=== PATIENT | female | born 1940 | race Caucasian/White ===

== ENCOUNTER → 2016-10-16 | Outpatient (REF) | payer MEDICARE ==
[2016-10-16 11:47] LABS: ALBUMIN 3.4 GM/DL (3.2-5.2); ALBUMIN/GLOBULIN RATIO 1.21 (1.00-1.93); BILIRUBIN,TOTAL 1.4 MG/DL (0.2-1.0); CALCIUM LEVEL 9.9 MG/DL (8.8-10.2); CREATININE FOR GFR 1.09 MG/DL (0.55-1.02); POTASSIUM SERUM 5.1 MEQ/L (3.5-5.1); TOTAL PROTEIN 6.2 GM/DL (6.4-8.2)
== END ==
LOC: M SFHCPLAZ 08:14
PROVIDERS: ATTEND Internal Medicine
DX: E10.29 Type 1 diabetes mellitus with other diabetic kidney complication (principal); E78.00 Pure hypercholesterolemia, unspecified

== ENCOUNTER 2016-12-05 21:58 | Emergency (ER) | payer MEDICARE ==
[2016-12-05] MEDS ORDERED: PANTOPRAZOLE 40MG TAB (PROTONIX) PO ONE (22:30)
[2016-12-05] MEDS ORDERED: ASPIRIN 325 MG TAB PO ONE (22:30)
[2016-12-05] MEDS ORDERED: LOSA100T36 PO (22:50)
[2016-12-05] MEDS ORDERED: AMLO5TAB2 PO (22:50)
[2016-12-05] MEDS ORDERED: NITR0.4S14 SL (22:50)
[2016-12-05] MEDS ORDERED: COSO1SOL3 OD (22:50)
[2016-12-05] MEDS ORDERED: LEVO150T7 PO (22:50)
[2016-12-05] MEDS ORDERED: ATOR1TAB21 PO (22:50)
[2016-12-05] MEDS ORDERED: ONE-TAB3 PO (22:50)
[2016-12-05] MEDS ORDERED: LUBR0.5D OP (22:50)
[2016-12-05] MEDS ORDERED: ASPI81CH PO (22:50)
[2016-12-05] MEDS ORDERED: FLON1SPR (22:50)
[2016-12-05] MEDS ORDERED: TIMO0.5S29 OS (22:50)
[2016-12-05] MEDS ORDERED: FISH1000 PO (22:50)
[2016-12-05] MEDS ORDERED: [UNRECOGNIZED DRUG - OTHER] SQ (22:50)
[2016-12-05] MEDS ORDERED: COLE625TAB PO (22:50)
[2016-12-05] MEDS ORDERED: VITA500055 PO (22:50)
[2016-12-05] MEDS ORDERED: ACYC200C8 PO (22:50)
[2016-12-05 23:13] LABS: BASO % 0.6 % (0.0-1.0); EOS # 0.3 K/mm3 (0.0-0.50); EOS % 3.3 % (0.0-3.0); LARGE UNSTAINED CELL # 0.2 K/mm3 (0.0-0.4); LARGE UNSTAINED CELL % 2.2 % (0.0-4.0); LYMPH # 3.3 K/mm3 (1.5-4.5); LYMPH % 38.4 % (24.0-44.0); MEAN CORPUSCULAR HEMOGLOBIN 32.6 pg (27.0-33.0); MEAN CORPUSCULAR HGB CONC 34.9 g/dl (32.0-36.5); MEAN CORPUSCULAR VOLUME 93.3 fl (80.0-96.0); MONO # 0.6 K/mm3 (0.0-0.8); MONO % 7.1 % (0.0-5.0); NEUTROPHILS % 48.4 % (36.0-66.0); PLATELET COUNT, AUTOMATED 185 k/mm3 (150-450); RED CELL DISTRIBUTION WIDTH 11.7 % (11.5-14.5); WHITE BLOOD COUNT 8.2 K/mm3 (4.0-10.0)
[2016-12-05 23:20] LABS: INR 0.86
[2016-12-05 23:43] LABS: ANION GAP 7 MEQ/L (8-16); BLOOD UREA NITROGEN 21 MG/DL (7-18); CALCIUM LEVEL 9.6 MG/DL (8.8-10.2); CARBON DIOXIDE LEVEL 27 MEQ/L (21-32); CHLORIDE LEVEL 107 MEQ/L (98-107); CREATININE FOR GFR 1.18 MG/DL (0.55-1.02); GLOMERULAR FILTRATION RATE 47.4 (>39); GLUCOSE, FASTING 97 MG/DL (83-110); SODIUM LEVEL 141 MEQ/L (136-145)
[2016-12-06] MEDS ORDERED: PROT1TAB2 PO (03:43)
[2016-12-06 03:55] VITALS: BP 162/64
--- NOTE | 2016-12-06 08:30 | REP ---
PA and lateral chest: Comparison is 06/08/2009. The lung marquez are clear. The cardiac size is normal The ric, mediastinum, and bony thorax are unremarkable. Impression: Negative PA and lateral chest. There is no interval change. Signed by Dav Teran MD 12/06/2016 08:22 A
--- NOTE | 2016-12-06 21:33 | ECGEPIP ---
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
--- NOTE | 2016-12-06 21:35 | ECGEPIP ---
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
== END 2016-12-06 03:57 | disposition home or self-care (01) ==
LOC: EDBD 21:58 → M ED 21:58
DX: K21.9 Gastro-esophageal reflux disease without esophagitis (principal); I25.10 Atherosclerotic heart disease of native coronary artery without angina pectoris; E11.9 Type 2 diabetes mellitus without complications; I10 Essential (primary) hypertension; E78.5 Hyperlipidemia, unspecified; Z87.891 Personal history of nicotine dependence; Z88.0 Allergy status to penicillin; Z79.82 Long term (current) use of aspirin; Z79.899 Other long term (current) drug therapy; Z96.41 Presence of insulin pump (external) (internal)

== ENCOUNTER → 2017-04-17 | Outpatient (REF) | payer MEDICARE ==
[~2017-04-17] MED LIST: ACYC200C8 PO; AMLO5TAB2 PO; ASPI81CH PO; ATOR1TAB21 PO; COLE625TAB PO; COSO1SOL3 OD; FISH1000 PO; FLON1SPR; LEVO150T7 PO; LOSA100T36 PO; LUBR0.5D OP; NITR0.4S14 SL; ONE-TAB3 PO; PROT1TAB2 PO; TIMO0.5S29 OS; VITA500055 PO; [UNRECOGNIZED DRUG - OTHER] SQ
[2017-04-17 10:53] LABS: MEAN CORPUSCULAR HEMOGLOBIN 31.4 pg (27.0-33.0); MEAN CORPUSCULAR HGB CONC 33.1 g/dl (32.0-36.5); MEAN CORPUSCULAR VOLUME 94.8 fl (80.0-96.0); PLATELET COUNT, AUTOMATED 206 10^3/uL (150-450); RED CELL DISTRIBUTION WIDTH 11.5 % (11.5-14.5); WHITE BLOOD COUNT 10.7 10^3/uL (4.0-10.0)
[2017-04-17 11:13] LABS: ALBUMIN 3.4 GM/DL (3.2-5.2); ALBUMIN/GLOBULIN RATIO 1.17 (1.00-1.93); BILIRUBIN,TOTAL 1.2 MG/DL (0.2-1.0); CALCIUM LEVEL 9.1 MG/DL (8.8-10.2); CREATININE FOR GFR 1.13 MG/DL (0.55-1.02); GLOMERULAR FILTRATION RATE 49.8 (>39); TOTAL PROTEIN 6.3 GM/DL (6.4-8.2)
[2017-04-17 13:28] LABS: POTASSIUM SERUM 5.6 MEQ/L (3.5-5.1)
== END ==
LOC: M SFHCPLAZ 08:28
PROVIDERS: ATTEND Internal Medicine
DX: E10.29 Type 1 diabetes mellitus with other diabetic kidney complication (principal); Z86.010 Personal history of colon polyps; E78.00 Pure hypercholesterolemia, unspecified; E03.9 Hypothyroidism, unspecified

== ENCOUNTER → 2017-05-20 | Outpatient (REF) | payer MEDICARE | LOC: M LAB REF 13:12 | DX: N39.0 Urinary tract infection, site not specified (principal) | CPT/HCPCS: 87186 ==

== ENCOUNTER → 2017-08-19 | Outpatient (REF) | payer MEDICARE ==
[2017-08-19 18:43] LABS: FERRITIN 87 NG/ML (8-252); IRON (FE) 94 UG/DL (50-170); PERCENT SATURATION 28.9 % (13.2-45.0); TOTAL IRON BINDING CAPACITY 325 UG/DL (250-450)
== END ==
LOC: M LAB REF 17:12
DX: D64.9 Anemia, unspecified (principal)
CPT/HCPCS: 83550

== ENCOUNTER → 2018-05-01 | Outpatient (REF) | payer MEDICARE ==
[~2018-05-01] MED LIST changes: -AMLO5TAB2 PO; +AMLO5TAB6 PO; -LOSA100T36 PO; +LOSA100T50 PO
[2018-05-01 11:19] LABS: HEMATOCRIT 37.5 % (36.0-47.0); HEMOGLOBIN 12.3 g/dl (12.0-15.5); MEAN CORPUSCULAR HEMOGLOBIN 30.4 pg (27.0-33.0); MEAN CORPUSCULAR HGB CONC 32.8 g/dl (32.0-36.5); MEAN CORPUSCULAR VOLUME 92.6 fl (80.0-96.0); PLATELET COUNT, AUTOMATED 208 10^3/uL (150-450); RED BLOOD COUNT 4.05 10^6/uL (4.00-5.40); WHITE BLOOD COUNT 7.1 10^3/uL (4.0-10.0)
[2018-05-01 11:36] LABS: ALBUMIN 3.5 GM/DL (3.2-5.2); CALCIUM LEVEL 8.9 MG/DL (8.8-10.2); CHOLESTEROL RISK RATIO 1.732 (<5); CREATININE FOR GFR 0.99 MG/DL (0.55-1.30); GLOMERULAR FILTRATION RATE 57.9 (>39); MAGNESIUM LEVEL 1.9 MG/DL (1.8-2.4); POTASSIUM SERUM 4.8 MEQ/L (3.5-5.1); THYROID STIMULATING HORMONE 0.135 uIU/ML (0.358-3.740); TOTAL PROTEIN 6.3 GM/DL (6.4-8.2)
[2018-05-01 11:38] LABS: TOTAL 25(OH) VITAMIN D 33.3 NG/ML (30.0-100.0)
[2018-05-01 11:53] LABS: CREATININE, URINE 28.6 MG/DL; MALB URINE SIEMENS 58.3 MG/L; MAU/CREAT RATIO 203.8 MCG/MG (0.0-30.0)
[2018-05-01 12:08] LABS: HEMOGLOBIN A1c 9.3 %
== END ==
LOC: M SFHCPLAZ 08:16
PROVIDERS: ATTEND Internal Medicine
DX: Z86.010 Personal history of colon polyps (principal); I10 Essential (primary) hypertension; E10.29 Type 1 diabetes mellitus with other diabetic kidney complication; E78.00 Pure hypercholesterolemia, unspecified; E03.9 Hypothyroidism, unspecified; E55.9 Vitamin D deficiency, unspecified

== ENCOUNTER → 2018-05-13 | Outpatient (CLI) | payer MEDICARE ==
--- NOTE | 2018-05-13 09:54 | REPMRS ---
Patient History The patient states she has not had a clinical breast exam in over a year. Patient is postmenopausal. Family history of prostate cancer and colorectal cancer at age 50 or over in father. No Hormone Replacement Therapy Digital Woman Screen Mammo: May 13, 2018 - Exam #: [id number] Bilateral CC and MLO view(s) were taken. Technologist: Tyesha Chacon, Technologist Prior study comparison: June 15, 2015, digital woman screen mammo performed at [facility]. November 13, 2013, digital woman screen mammo performed at [facility]. November 12, 2012, digital woman screen mammo performed at [facility]. FINDINGS: There are scattered fibroglandular densities. There are two groupings of microcalcifications in the left breast centrally, one medial and the other lateral. These merit further evaluation. There has been no change in the appearance of the mammogram from the prior studies. There is a mild amount of scattered fibroglandular density which is fairly symmetric. There is no interval development of dominant mass, architectural distortion, or clustered microcalcification suggestive of malignancy. 3-D tomosynthesis shows no additional findings. Assessment: BI-RADS/ACR category 0 mammogram, incomplete. BIRADS/ACR category zero mammogram, incomplete. Additional imaging and/or prior images needed. Recommendation Follow-up diagnostic mammogram of the left breast. This patient's Lifetime Breast Cancer RIsk is estimated at 3.5 %. This mammogram was interpreted with the aid of an FDA-approved computer-aided dectection system. Electronically Signed By: Ananda Licea MD 05/13/18 [id number]
== END ==
LOC: M WHC 08:44
PROVIDERS: ATTEND Internal Medicine
DX: Z12.31 Encounter for screening mammogram for malignant neoplasm of breast (principal); R92.8 Other abnormal and inconclusive findings on diagnostic imaging of breast

== ENCOUNTER → 2018-05-21 | Outpatient (CLI) | payer MEDICARE ==
--- NOTE | 2018-05-21 10:03 | REP ---
Digital diagnostic bilateral mammography with CAD: History: Screening mammography May 13, 2018 was BI-RADS category 0 because of the presence of two apparent groupings of microcalcifications. Comparison mammography is also reviewed from June 15, 2015 and November 13, 2013. Findings: Magnified focal spot compression CC, true MLO, and MLO views of the left breast were obtained. These confirm the presence of two progressive microcalcific grouping in the left breast, one laterally and one medially. No spiculation or soft tissue component is seen. They are polymorphic and must be considered suspicious. Impression: BI-RADS/ACR category 4 mammogram. Suspicious abnormality - biopsy should be considered. Usually requires biopsy. BI-RADS category IV suspicious left breast imaging. Two groupings of microcalcifications, one medially and the other laterally in the left breast. Stereotactic needle biopsy is recommended for both groupings. This mammogram was interpreted with the aid of an FDA-approved computer-aided detection system. The patient letter being requested is m4 . Electronically Signed by Jose Licea MD 05/21/2018 07:35 P
== END ==
LOC: M RAD 09:22
PROVIDERS: ATTEND Internal Medicine
DX: Z12.31 Encounter for screening mammogram for malignant neoplasm of breast (principal); R92.0 Mammographic microcalcification found on diagnostic imaging of breast

== ENCOUNTER 2018-08-20 14:41 | Emergency (ER) | payer MEDICARE ==
[~2018-08-20] VITALS: Ht 157.5 cm; Wt 65.5 kg
[~2018-08-20 14:41] MED LIST changes: -ASPI81CH PO; +ASPI81CH49 PO
[2018-08-20] MEDS ORDERED: OMEP-218 PO (15:19)
[2018-08-20] MEDS ORDERED: BIMA01SOL OU (15:19)
[2018-08-20] MEDS ORDERED: LEVO112T2 PO (15:19)
[2018-08-20] MEDS ORDERED: NS 1,000 ML IV SCH (16:01)
[2018-08-20 16:39] LABS: VENOUS HCO3 23.6 MEQ/L (23.0-27.0); VENOUS O2 SATURATION 81.3 % (60.0-80.0); VENOUS PARTIAL PRESSURE CO2 43.5 mmHg (38.0-50.0); VENOUS PARTIAL PRESSURE O2 45.7 mmHg (30.0-50.0); VENOUS PH 7.352 UNITS (7.330-7.430); VENOUS STANDARD HCO3 22.4 MEQ/L; VENOUS TOTAL CO2 24.9 MEQ/L (24.0-28.0)
[2018-08-20 16:46] LABS: BASO # 0.1 10^3/uL (0.0-0.2); BASO % 0.6 % (0.0-1.0); EOS # 0.1 10^3/uL (0.0-0.50); EOS % 0.8 % (0.0-3.0); HEMATOCRIT 34.9 % (36.0-47.0); HEMOGLOBIN 12.1 g/dl (12.0-15.5); LYMPH # 1.2 10^3/uL (1.5-4.5); LYMPH % 13.1 % (24.0-44.0); MEAN CORPUSCULAR HEMOGLOBIN 31.8 pg (27.0-33.0); MEAN CORPUSCULAR HGB CONC 34.7 g/dl (32.0-36.5); MEAN CORPUSCULAR VOLUME 91.6 fl (80.0-96.0); MONO # 0.8 10^3/uL (0.0-0.8); MONO % 8.7 % (0.0-5.0); NEUTROPHILS # 6.7 10^3/uL (1.8-7.7); NEUTROPHILS % 76.6 % (36.0-66.0); PLATELET COUNT, AUTOMATED 188 10^3/uL (150-450); RED BLOOD COUNT 3.81 10^6/uL (4.00-5.40); WHITE BLOOD COUNT 8.8 10^3/uL (4.0-10.0)
[2018-08-20] MEDS ORDERED: GI COCKTAIL 50ML BTL(HYOSCYAMINE/MAALOX/LIDOCAINE VISCOUS)(1:3:1) PO ONE (17:00)
[2018-08-20 17:10] LABS: HEMOGLOBIN A1c 9.5 %
[2018-08-20] MEDS ORDERED: HumuLIN R (REGULAR) INSULIN (NovoLIN R) **100U/ML** PER UNIT IV ONE (17:15)
[2018-08-20 17:25] LABS: BLOOD UREA NITROGEN 34 MG/DL (7-18); CALCIUM LEVEL 9.3 MG/DL (8.8-10.2); CARBON DIOXIDE LEVEL 24 MEQ/L (21-32); CHLORIDE LEVEL 96 MEQ/L (98-107); CPK CREATINE PHOSPHOKINASE 80 U/L (26-192); CREATININE FOR GFR 1.31 MG/DL (0.55-1.30); GLOMERULAR FILTRATION RATE 41.9 (>39); GLUCOSE, FASTING 597 MG/DL (70-100); POTASSIUM SERUM 4.7 MEQ/L (3.5-5.1); SODIUM LEVEL 131 MEQ/L (136-145); TROPONIN I < 0.02 NG/ML (< 0.10)
[2018-08-20 19:03] LABS: VENOUS BASE EXCESS -0.8 (-2.0-2.0); VENOUS HCO3 25.3 MEQ/L (23.0-27.0); VENOUS O2 SATURATION 80.6 % (60.0-80.0); VENOUS PARTIAL PRESSURE CO2 47.8 mmHg (38.0-50.0); VENOUS PARTIAL PRESSURE O2 46.2 mmHg (30.0-50.0); VENOUS PH 7.341 UNITS (7.330-7.430); VENOUS STANDARD HCO3 23.5 MEQ/L; VENOUS TOTAL CO2 26.7 MEQ/L (24.0-28.0)
[2018-08-20 19:45] VITALS: BP 129/63
--- NOTE | 2018-08-20 19:45 | REP ---
The portable chest, 07:26 p.m., single AP view, the patient is upright: Comparison is the PA and lateral chest dated 12/05/2016. The lung marquez are clear. The cardiac size is normal. The ric, mediastinum, and skeletal structures are unremarkable. Impression: Negative portable chest. There is no interval change. Electronically Signed by Dav Teran MD 08/20/2018 07:36 P
[2018-08-20] MEDS ORDERED: CIPROFLOXACIN 500 MG TAB PO ONE (20:00)
--- NOTE | 2018-08-21 21:37 | ECGEPIP ---
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
== END 2018-08-20 20:18 | disposition home or self-care (01) ==
LOC: M ED 14:41
DX: E10.65 Type 1 diabetes mellitus with hyperglycemia (principal); K21.9 Gastro-esophageal reflux disease without esophagitis; Z79.82 Long term (current) use of aspirin; Z96.41 Presence of insulin pump (external) (internal); Z79.899 Other long term (current) drug therapy; Z88.0 Allergy status to penicillin

== ENCOUNTER → 2018-11-03 | Outpatient (CLI) | payer MEDICARE ==
[~2018-11-03] MED LIST changes: +BIMA01SOL OU; +LEVO112T2 PO; +OMEP-218 PO
--- NOTE | 2018-11-03 11:43 | REP ---
DIAGNOSTIC MAMMOGRAM LEFT BREAST: No family history of breast cancer. Comparison 05/21/2018 as well as other prior exams. [facility] of [facility]%. Unilateral mammogram left breast performed in the MLO and CC projections with 3D tomosynthesis. Additional magnification views are performed. Once again there is mild fibroglandular tissue present in the left breast. There is no new mass or architectural distortion. Once again clustered microcalcifications are seen in the outer aspect of the left breast as well as in the medial aspect of the left breast, slightly below the level of the nipple. The calcifications are unchanged since the exam of 05/21/2018 and again appear somewhat suspicious. There are no new findings. IMPRESSION: BIRADS 4: BI-RADS/ACR category 4 mammogram. Suspicious Abnormality - biopsy should be considered. Two persistent clusters of pleomorphic microcalcifications, one medially and one laterally in the left breast. These mammographically are again suspicious and are best categorized with BIRADS ACR 4 suspicious. Sterotactic biopsy is recommended. This mammogram was interpreted with the aid of an FDA-approved computer-aided detection system. The patient states she has not had a clinical breast exam in over a year. The patient letter being requested is M4. Electronically Signed by Dav Mcfarland MD 11/03/2018 04:23 P
== END ==
LOC: M RAD 10:03
PROVIDERS: ATTEND Surgery
DX: R92.0 Mammographic microcalcification found on diagnostic imaging of breast (principal)
CPT/HCPCS: 77065; G0279

== ENCOUNTER → 2018-11-26 | Outpatient (CLI) | payer MEDICARE ==
[~2018-11-26] MED LIST changes: +LIDOCAINE 1% MDV 20ML VIAL As Ordered ONE; +OMEG10002 PO; +VITA500075 PO
[2018-11-26 14:35] VITALS: BP 139/79
--- NOTE | 2018-11-26 15:03 | REP ---
POSTBIOPSY MAMMOGRAM, LEFT BREAST: Postbiopsy left breast performed in the MLO, ML and CC projections. Patient had stereotactic biopsy of two clusters of microcalcifications, one medially and one laterally. A metallic clip is seen at the site of each cluster of microcalcifications and both clusters of microcalcifications are no longer visualized. Electronically Signed by Dav Mcfarland MD 11/27/2018 11:08 A
--- NOTE | 2018-11-26 15:05 | REP ---
SPECIMEN RADIOGRAPHS: Specimen radiographs are performed following stereotactic biopsy of two clusters of microcalcifications in the left breast, one medially and one laterally. Both sets of specimens show multiple microcalcifications within the specimens obtained respectively from the medial and lateral aspect of the left breast. Electronically Signed by Dav Mcfarland MD 11/27/2018 11:09 A
--- NOTE | 2018-11-27 17:22 | REP ---
STEREOTACTIC LEFT BREAST BIOPSY The procedure was performed under the direct supervision of Dr. Mcfarland The patient has a history of to persistent clusters of pleomorphic microcalcifications one medially and one laterally in the left breast seen on a previous mammogram dated 11/03/2018. The risks and benefits of the procedure were explained to the patient and informed consent was obtained. A craniocaudal approach was utilized. The calcifications in the lateral aspect were localized using stereotactic mammographic guidance. 1% Xylocaine was used as a local anesthetic. An 8 gauge, suction assisted Mammotome needle was inserted and 6 core biopsy samples were obtained. Specimen radiograph demonstrates the presence of calcifications to be within the specimen. A marker clip was placed at the biopsy site. The patient tolerated the procedure well and there were no immediate complications. After the appropriate amount of monitored convalescence, the patient was discharged from the department. Reviewed by CARY Cuba 11/27/2018 04:37 P Electronically Signed by Dav Mcfarland MD 11/27/2018 05:13 P
--- NOTE | 2018-11-27 17:25 | REP ---
STEREOTACTIC LEFT BREAST BIOPSY The procedure was performed under the direct supervision of Dr. Mcfarland The patient has a history of to persistent clusters of pleomorphic microcalcifications one medially and one laterally in the left breast seen on a previous mammogram dated 11/03/2018. The risks and benefits of the procedure were explained to the patient and informed consent was obtained. A craniocaudal approach was utilized. The microcalcifications medial aspect were localized using stereotactic mammographic guidance. 1% Xylocaine was used as a local anesthetic. An 8 gauge, suction assisted Mammotome needle was inserted and 6 core biopsy samples were obtained. Specimen radiograph demonstrates the presence of calcifications to be within the specimen. A marker clip was placed at the biopsy site. The patient tolerated the procedure well and there were no immediate complications. After the appropriate amount of monitored convalescence, the patient was discharged from the department. Reviewed by CARY Cuba 11/27/2018 04:39 P Electronically Signed by Dav Mcfarland MD 11/27/2018 05:16 P
== END ==
LOC: M IRPRO 12:13
PROVIDERS: ATTEND Surgery
DX: D24.1 Benign neoplasm of right breast (principal)

== ENCOUNTER 2019-02-14 10:32 | Inpatient (IN) | payer MEDICARE ==
[~2019-02-14] VITALS: Ht 157.5 cm; Wt 64.0 kg
[~2019-02-14 10:32] MED LIST changes: -COSO1SOL3 OD; +COSO1SOL3 OU; -LIDOCAINE 1% MDV 20ML VIAL As Ordered ONE
[2019-02-14] MEDS ORDERED: NEUR100C PO (11:12)
[2019-02-14] MEDS ORDERED: METH25TA3 PO (11:12)
[2019-02-14] MEDS ORDERED: PANT40TA3 PO (11:12)
[2019-02-14 11:44] LABS: BASO % 0.5 % (0.0-1.0); EOS # 0.2 10^3/uL (0.0-0.5); EOS % 2.3 % (0.0-3.0); HEMATOCRIT 35.1 % (36.0-47.0); HEMOGLOBIN 11.6 g/dl (12.0-15.5); LYMPH # 2.1 10^3/uL (1.5-5.0); MEAN CORPUSCULAR HEMOGLOBIN 30.8 pg (27.0-33.0); MEAN CORPUSCULAR VOLUME 93.1 fl (80.0-96.0); MONO # 0.9 10^3/uL (0.0-0.8); MONO % 11.9 % (0.0-5.0); NEUTROPHILS # 4.2 10^3/uL (1.5-8.5); NEUTROPHILS % 57.2 % (36.0-66.0); PLATELET COUNT, AUTOMATED 214 10^3/uL (150-450); RED BLOOD COUNT 3.77 10^6/uL (4.00-5.40); WHITE BLOOD COUNT 7.4 10^3/uL (4.0-10.0)
[2019-02-14 11:54] LABS: INR 0.98; PROTHROMBIN TIME 12.7 SECONDS (11.8-14.0)
--- NOTE | 2019-02-14 11:54 | REP ---
REASON: Stroke-like symptoms. PRIORS: None. There is a very subtle potential finding of decreased density in the deep white matter of the left frontal lobe. The ventricles and sulci are within normal limits. The deep white matter is otherwise unremarkable. There is no evidence of acute intracranial hemorrhage. There is no shift in the midline structures. The posterior fossa is within normal limits. The paranasal sinuses and mastoid air cells are clear. There is no skull fracture. IMPRESSION: Subtle finding of potential decreased density left frontal lobe deep white matter suggesting possible acute infarction. This should be correlated clinically Electronically Signed by Huang Conroy DO 02/14/2019 12:19 P
[2019-02-14 11:55] LABS: PARTIAL THROMBOPLASTIN TIME 24.9 SECONDS (25.0-38.4)
--- NOTE | 2019-02-14 11:58 | REP ---
REASON: Stroke-like symptoms. COMPARISON: 08/20/2018. FINDINGS: The technique utilized in obtaining the radiograph has magnified the cardiac silhouette and accentuated the interstitial markings. The superior mediastinal structures are midline. The cardiac silhouette is unremarkable in size, shape, and position. The diaphragmatic surfaces of the lungs are regular, and the costophrenic angles are clear. The pulmonary marquez are clear. The imaged osseous structures are intact. IMPRESSION: There is no acute cardiopulmonary disease. Electronically Signed by Huang Conroy DO 02/14/2019 12:19 P
[2019-02-14 12:15] LABS: BLOOD UREA NITROGEN 22 MG/DL (7-18); CALCIUM LEVEL 8.9 MG/DL (8.8-10.2); CARBON DIOXIDE LEVEL 24 MEQ/L (21-32); CHLORIDE LEVEL 106 MEQ/L (98-107); CK-MB VALUE MASS 1.3 NG/ML (<3.6); CPK CREATINE PHOSPHOKINASE 71 U/L (26-192); CREATININE FOR GFR 0.95 MG/DL (0.55-1.30); GLOMERULAR FILTRATION RATE > 60.0 (>39); GLUCOSE, FASTING 181 MG/DL (70-100); MB/CK RELATIVE INDEX 1.83 (< OR =4); POTASSIUM SERUM 4.4 MEQ/L (3.5-5.1); SODIUM LEVEL 137 MEQ/L (136-145); TROPONIN I < 0.02 NG/ML (< 0.10)
--- NOTE | 2019-02-14 15:34 | REPVR ---
PROCEDURE INFORMATION: Exam: MR Angiogram Head Without Contrast, Arteries Exam date and time: 02/14/2019 1:46 PM Clinical history: 78 years old, female; Memory loss; Type not specified; Patient HX: Per patient had memory issues. ; Additional info: ? Left frontal low density on CT TECHNIQUE: Imaging protocol: MR angiogram head without contrast. Exam focused on the arteries. 3D rendering: MIP reconstructed images were created and reviewed. COMPARISON: MRA BRAIN W/O CONTRAST 02/14/2019 12:16 PM FINDINGS: Right internal carotid artery: There is moderate stenosis of the right petrous and right cavernous internal carotid artery. Some of this appearance may be due to technical limitations. However, there is asymmetric decreased flow signal within these arteries as well. Right anterior cerebral artery: See Right Internal Carotid Artery Finding. Right middle cerebral artery: There is subtle asymmetric decreased flow signal within the right middle cerebral artery branches compared to the left. Right posterior cerebral artery: Unremarkable. No occlusion or significant stenosis. No aneurysm. Right vertebral artery: Unremarkable. No occlusion or significant stenosis. No aneurysm. Left internal carotid artery: Unremarkable. Intracranial segment is patent with no significant stenosis. No aneurysm. Left anterior cerebral artery: Unremarkable. No occlusion or significant stenosis. No aneurysm. Left middle cerebral artery: Unremarkable. No occlusion or significant stenosis. No aneurysm. Left posterior cerebral artery: Unremarkable. No occlusion or significant stenosis. No aneurysm. Left vertebral artery: Unremarkable. No occlusion or significant stenosis. No aneurysm. Basilar artery: Unremarkable. No occlusion or significant stenosis. No aneurysm. IMPRESSION: 1. There is moderate stenosis of the right petrous and right cavernous internal carotid artery. Some of this appearance may be due to technical limitations. However, there is asymmetric decreased flow signal within these arteries as well. Followup CT angiography of the cervical and intracranial vessels is recommended. 2. There is subtle asymmetric decreased flow signal within the right middle cerebral artery branches compared to the left. Electronically signed by: Cristhian Copeland On 02/14/2019 15:34:11 PM
--- NOTE | 2019-02-14 17:07 | REPVR ---
PROCEDURE INFORMATION: Exam: MR Head Without Contrast Exam date and time: 02/14/2019 1:45 PM Clinical history: 78 years old, female; Altered mental status/memory loss; Additional info: ? Left frontal low density on CT TECHNIQUE: Imaging protocol: MR of the head without contrast. COMPARISON: MRA BRAIN W/O CONTRAST 02/14/2019 12:16 PM FINDINGS: Brain: No acute infarct. Mild chronic microvascular ischemic changes. Ventricles: Normal. No ventriculomegaly. Bones/joints: Unremarkable. Soft tissues: Unremarkable. Sinuses: Normal as visualized. No acute sinusitis. Mastoid air cells: Normal as visualized. No mastoid effusion. Orbits: Unremarkable. Other findings: No hemorrhage. IMPRESSION: No acute intracranial abnormality. Chronic microvascular ischemic changes. Electronically signed by: Jay Ordoñez On 02/14/2019 17:06:48 PM
[2019-02-14] MEDS ORDERED: RHOP0.02 OU (18:52)
[2019-02-14] MEDS ORDERED: LANTINJ4 SC (18:52)
[2019-02-14] MEDS ORDERED: MAGN400C2 PO (18:52)
[2019-02-14] MEDS ORDERED: VITA100018 PO (18:52)
[2019-02-14] MEDS ORDERED: GNPSOL OU (18:52)
[2019-02-14] MEDS ORDERED: MOM 30ML SUSPENSION UDC PO PRN (20:15)
[2019-02-14] MEDS ORDERED: MAALOX 30 ML SUSP *UDC PO PRN (20:15)
[2019-02-14] MEDS ORDERED: ACETAMINOPHEN TAB 650MG DOSE (2X325MG) PO PRN (20:15)
[2019-02-14] MEDS ORDERED: DEXTROSE 50% 50 ML SYRINGE IV PRN (20:30)
[2019-02-14] MEDS ORDERED: GLUCAGON FOR INJ 1 MG VIAL (J1610) SC PRN (20:30)
[2019-02-14] MEDS ORDERED: GLUCOSE 4 GM CHEW TABLET PO PRN (20:30)
[2019-02-14] MEDS ORDERED: NITROGLYCERIN 0.4 MG SUBL TABLET SL PRN (20:30)
--- NOTE | 2019-02-14 20:32 | HPEPDOC ---
General Date of Admission 02/14/19 Date of Service: Feb 14, 2019 Primary Care Physician: Elier Gonzalez Chief Complaint The patient is a 78-year-old female admitted with a reason for visit of AMS. Source: Patient, RN/MD Exam Limitations: No limitations Timing/Duration: This evening Severity: Mild Associated Symptoms: Other (, altered mentation) History of Present Illness This is a 78 years old white female with past medical history of hypertension, hypothyroidism, colonic polyps, hyperlipidemia, CAD, glaucoma, vitamin D deficiency, memory loss, visual reduced visual acuity adjustment disorder with anxiety was brought in by EMS with the evaluation of confusion. As per patient's to EMS. She had a progressive confusion episodes and he called 911 and she was brought here. Patient has a baseline dementia and also has insulin pump. During my examination and interview. Patient is alert, oriented 2, not confused, not disoriented and offers no complaints including weakness of arms, legs, cranial nerves, decreased sensation, loss of consciousness, etc. Home Medications Scheduled Acyclovir (Acyclovir) 200 Mg Cap, 400 MG PO BID, (Reported) Aspirin (Aspirin) 81 Mg Chw, 81 MG PO DAILY, (Reported) Atorvastatin Calcium (Atorvastatin Calcium) 20 Mg Tab, 20 MG PO DAILY, (Reported) Bimatoprost (Lumigan) 2.5 Ml Drops, 1 DROP OU QHS, (Reported) Cholecalciferol (Vitamin D3) (Vitamin D3) 5,000 Unit Capsule, 5,000 UNIT PO 3XW, (Reported) MON, SAT, SAT Cyanocobalamin (Vitamin B-12) (Vitamin B-12) 1,000 Mcg Tablet, 1,000 MCG PO QHS, (Reported) Dorzolamide HCl/Timolol Maleat (Cosopt Eye Drops) 1 Ml Soln, 1 DROP OU BID, (Reported) Insulin Glargine,Hum.rec.anlog (Lantus Solostar) 100 Unit/1 Ml Insuln.pen, 1 DOSE SC ASDIRECTED, (Reported) PATIENT HAS CONTINUOUS READINGS, IF READINGS ARE HIGH, SHE ADMINISTERS A FEW UNITS OF LANTUS Levothyroxine Sodium (Levothyroxine Sodium) 112 Mcg Tablet, 112 MCG PO DAILY, (Reported) Losartan Potassium (Losartan Potassium) 100 Mg Tab, 100 MG PO DAILY, (Reported) Magnesium Oxide (Magnesium) 400 Mg Capsule, 400 MG PO QHS, (Reported) Methazolamide (Methazolamide) 25 Mg Tablet, 25 MG PO BID, (Reported) Netarsudil Mesylate (Rhopressa) 2.5 Ml Drops, 1 DROP OU DAILY, (Reported) Walland-3/Dha/Epa/Fish Oil (Fish Oil 1,000 mg Softgel) 1 Each Capsule, 1,000 MG PO QHS, (Reported) Pantoprazole Sodium (Pantoprazole Sodium) 40 Mg Tablet.dr, 40 MG PO DAILY, (Reported) [humalog via pump] , Unknown Dose SQ DAILY, (Reported) Scheduled PRN Nitroglycerin (Nitroglycerin) 0.4 Mg Sub, 0.4 MG SL NITRO PRN for PAIN, (Reported) Polyvinyl Alcohol/Povidone (Artificial Tears Drops) 15 Ml Drops, 1 DROP OU QID PRN for DRY EYES, (Reported) Allergies Coded Allergies: Penicillins (Verified Allergy, Unknown, 08/20/18) Past Medical History Medical History Hypertension, diabetes mellitus, diabetic nephropathy, hypothyroidism, and colonic adenomas, hyperlipidemia, coronary artery disease, glaucoma, vitamin D deficiency, memory loss, 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 One brother is diabetic) Social History * Smoker: Denies Alcohol: Denies Drugs: denies A-FIB/CHADSVASC A-FIB History Current/History of A-Fib/PAF?: No Review of Systems Constitutional: Denies: Chills, Fever, Malaise, Night Sweats, Weakness, Fatigue, Weight Loss, Lethargy, Other Eyes: Denies: Pain, Vision change, Conjunctivae inflammation, Eyelid inflammation, Redness, Other ENT: Denies: Head Aches, Ear Pain, Dysphagia, Sinus Congestion, Post Nasal Drip, Sore Throat, Epistaxis, Other Symptoms Skin: Denies: Rash, Lesions, Jaundice, Bruising, Itching, Dry, Breakdown, Nail Changes, Other Pulmonary: Denies: Dyspnea, Cough, Pleuritic Chest Pain, Other Symptoms Cardiovascular: Denies: Chest Pain, Palpitations, Orthopnea, Paroxysmal Noc. Dyspnea, Edema, Lt Headedness, Other Symptoms Gastrointestinal: Denies: Nausea, Vomiting, Abdominal Pain, Diarrhea, Constipation, Melena, Hematochezia, Other Symptoms Genitourinary: Denies: Dysuria, Frequency, Incontinence, Hematuria, Retention, Other Symptoms Hematologic: Denies: Bruising, Bleeding Excessively, Petecchia, Purpura, Enlarged Lymph Nodes, Other Hematologic Endocrine: Denies: Polydipsia, Polyphagia, Polyuria, Heat Intolerance, Cold Intolerance, Other Endocrine Sx Musculoskeletal: Denies: Neck Pain, Back Pain, Shoulder Pain, Arm Pain, Hand Pain, Leg Pain, Foot Pain, Joint Pain, Muscle Pain, Spasms, Other Symptoms Neurological: Denies: Weakness, Numbness, Incoordination, Change in speech, Confusion, Seizures, Other Symptoms Psych: Denies: Mood Normal, Anxiety, Depression, Memory Issues, Thoughts of Self Harm, Anger, Thoughts of Harming Other, Other Psych Physical Examination General Exam: Positive: Alert, Cooperative Eye Exam: Positive: PERRLA, Conjunctiva & lids normal ENT Exam: Positive: Atraumatic, Mucous membr. moist/pink Neck Exam: Positive: Supple Chest Exam: Positive: Clear to auscultation, Normal air movement Heart Exam: Positive: Rate Normal, Normal S1, Normal S2 Abdomen Exam: Positive: Normal bowel sounds, Soft Extremity Exam: Positive: Normal pulses Skin Exam: Positive: Nl turgor and temperature Neuro Exam: Positive: Strength at 5/5 X4 ext, Sensation Intact Psych Exam: Positive: Mental status NL, Mood NL, Other (, oriented 2) Vital Signs Vital Signs Date Time Temp Pulse Resp B/P (MAP) Pulse Ox O2 Delivery O2 Flow Rate FiO2 02/14/19 16:06 82 16 160/70 (100) 98 Room Air 02/14/19 10:50 96.3 Laboratory Data Labs 24H Laboratory Tests 2 02/14/19 10:50: Bedside Glucose (Misc Panel) 183H 02/14/19 11:24: Immature Granulocyte % (Auto) 0.1, White Blood Count 7.4, Red Blood Count 3.77L, Hemoglobin 11.6L, Hematocrit 35.1L, Mean Corpuscular Volume 93.1, Mean Corpuscular Hemoglobin 30.8, Mean Corpuscular Hemoglobin Concent 33.0, Red Cell Distribution Width 11.7, Platelet Count 214, Neutrophils (%) (Auto) 57.2, Lymphocytes (%) (Auto) 28.0, Monocytes (%) (Auto) 11.9H, Eosinophils (%) (Auto) 2.3, Basophils (%) (Auto) 0.5, Neutrophils # (Auto) 4.2, Lymphocytes # (Auto) 2.1, Monocytes # (Auto) 0.9H, Eosinophils # (Auto) 0.2, Basophils # (Auto) 0.0, Nucleated Red Blood Cells % (auto) 0.0, Prothrombin Time 12.7, Prothromb Time International Ratio 0.98, Activated Partial Thromboplast Time 24.9L, Anion Gap 7L, Glomerular Filtration Rate > 60.0, Blood Urea Nitrogen 22H, Creatinine 0.95, Sodium Level 137, Potassium Level 4.4, Chloride Level 106, Carbon Dioxide Level 24, Calcium Level 8.9, Total Creatine Kinase 71, Creatine Kinase MB 1.3, Creatine Kinase MB Relative Index 1.83, Troponin I < 0.02 02/14/19 16:09: Bedside Glucose (Misc Panel) 277H CBC/BMP Laboratory Tests 02/14/19 11:24 Red Blood Count 3.77 L, Mean Corpuscular Volume 93.1, Mean Corpuscular Hemoglobin 30.8, Mean Corpuscular Hemoglobin Concent 33.0, Red Cell Distribution Width 11.7, Neutrophils (%) (Auto) 57.2, Lymphocytes (%) (Auto) 28.0, Monocytes (%) (Auto) 11.9 H, Eosinophils (%) (Auto) 2.3, Basophils (%) (Auto) 0.5, Neutrophils # (Auto) 4.2, Lymphocytes # (Auto) 2.1, Monocytes # (Auto) 0.9 H, Eosinophils # (Auto) 0.2, Basophils # (Auto) 0.0, Calcium Level 8.9, Total Creatine Kinase 71 Problems (1) Transient global amnesia Status: Acute Problem Text: 78 years old white female with multiple medical problems includ ing diabetes mellitus, hypertension, dementia, hypothyroidism, hyperlipidemia, coronary artery disease, glaucoma, memory loss, visual reduced visual equity was brought in by EMS with chief complaint of confusion as reported by her aspirin. When patient was examined in ER, she is awake, alert, oriented 2, she is not confused at the present time. Admit patient to PCU with cardiac telemetry, Considering patient with history of CAD, we'll try to rule out possibility of TIA or cardiac arrhythmia CT of the head and MRI of brain are essentially within normal limit. Does not show any acute event Will request MRI of neck with contrast to rule out carotid stenosis or thrombosis Echocardiogram to rule out any cardiac etiology of TIA Continue all home meds Physical therapy evaluation in a.m. Follow lipid profile, CBC, CMP in a.m. Possible discharge home once the workup is complete and negative (2) Dementia Status: Chronic Problem Text: History of dementia, on no medications Supportive care (3) Diabetes mellitus Status: Chronic Problem Text: Patient is on insulin pump. Will continue the same Fingerstick blood sugar every before meals and at bedtime with coverage Carbonic consistent diet (4) Hypothyroid Status: Chronic Problem Text: Continue home meds (5) HTN (hypertension) Status: Chronic Problem Text: Under control. Continue home meds Plan / VTE VTE Prophylaxis Ordered?: Yes BROOKS ABDI MD Feb 14, 2019 20:32
[2019-02-14 21:50] VITALS: BP 144/63
[2019-02-14] MEDS ORDERED: HumaLOG INSULIN (NovoLOG) PER UNIT SC STA (22:15)
[2019-02-14] MEDS: HumaLOG INSULIN (NovoLOG) PER UNIT SC SCH (22:31)
[2019-02-14] MEDS: CYANOCOBALAMIN 500 MCG TAB PO SCH (22:33)
[2019-02-14] MEDS: OMEGA-3 1000MG CAPSULE PO SCH (22:34)
[2019-02-14] MEDS: COSOPT OCUMETER PLUS 10ML (DORZOLAMIDE/TIMOLOL) OU SCH (22:34)
[2019-02-14] MEDS: ACYCLOVIR 200 MG CAPSULE PO SCH (22:34)
[2019-02-14] MEDS: DOCUSATE SODIUM 100 MG CAP PO SCH (22:39)
[2019-02-15] VITALS (7 sets, daily range): BP systolic 131–166; BP diastolic 62–76
[2019-02-15] MEDS ORDERED: HumaLOG INSULIN (NovoLOG) PER UNIT SC STA (02:12)
[2019-02-15 06:17] LABS: HEMATOCRIT 32.1 % (36.0-47.0); HEMOGLOBIN 10.6 g/dl (12.0-15.5); MEAN CORPUSCULAR HEMOGLOBIN 30.6 pg (27.0-33.0); MEAN CORPUSCULAR VOLUME 92.8 fl (80.0-96.0); PLATELET COUNT, AUTOMATED 208 10^3/uL (150-450); RED BLOOD COUNT 3.46 10^6/uL (4.00-5.40); WHITE BLOOD COUNT 8.6 10^3/uL (4.0-10.0)
[2019-02-15 06:44] LABS: ALBUMIN 3.1 GM/DL (3.2-5.2); BILIRUBIN,TOTAL 1.1 MG/DL (0.2-1.0); CALCIUM LEVEL 9.5 MG/DL (8.8-10.2); CHOLESTEROL RISK RATIO 1.517 (<5); CREATININE FOR GFR 1.13 MG/DL (0.55-1.30); GLOMERULAR FILTRATION RATE 49.6 (>39); MAGNESIUM LEVEL 2.1 MG/DL (1.8-2.4); POTASSIUM SERUM 4.4 MEQ/L (3.5-5.1); TOTAL PROTEIN 5.7 GM/DL (6.4-8.2)
[2019-02-15] MEDS: DOCUSATE SODIUM 100 MG CAP PO SCH ×2 (09:00→20:51)
[2019-02-15] MEDS: ENOXAPARIN 40 MG/0.4 ML SYRINGE (J1650) SC SCH (09:24)
[2019-02-15] MEDS: LEVOTHYROXINE 112MCG TABLET (0.112MG) PO SCH (09:24)
[2019-02-15] MEDS: HumaLOG INSULIN (NovoLOG) PER UNIT SC SCH ×4 (09:24→20:53)
[2019-02-15] MEDS: PANTOPRAZOLE 40MG TAB (PROTONIX) PO SCH (09:25)
[2019-02-15] MEDS: ASPIRIN 81 MG CHEW TABLET PO SCH (09:25)
[2019-02-15] MEDS: ATORVASTATIN 20 MG TAB PO SCH (09:25)
[2019-02-15] MEDS: ACYCLOVIR 200 MG CAPSULE PO SCH ×2 (09:25→20:52)
[2019-02-15] MEDS: COSOPT OCUMETER PLUS 10ML (DORZOLAMIDE/TIMOLOL) OU SCH ×2 (09:26→20:53)
[2019-02-15] MEDS: LOSARTAN 50 MG TAB PO SCH (09:26)
--- NOTE | 2019-02-15 12:01 | IPNPDOC ---
Text Note Date of Service The patient was seen on 02/15/19. NOTE SUBJECTIVE: Ms. Morales is still having difficulty with her memory this morning. She does not readily recollect who the president is, though she eventually does identify him. She cannot recall the name of the street that she lives on. The patient is admitted with transient global amnesia of unclear etiology. She is aware of her deficit. OBJECTIVE: Please see vital signs below Physical exam: HENT: Patient wears glasses. Neck is supple with no adenopathy or thyromegaly, oral mucosa is moist CV: Regular rate and rhythm with a normal S1 and S2 and a 2/6 systolic murmur. Respiratory: Clear to auscultation with no rhonchi, rales, wheezes or cough. Abdomen: Soft, nontender, nondistended, positive bowel tones. Extremities: No peripheral edema or lesions, pedal pulses are palpable. 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 Acute transient global amnesia. She is having some improvement; she can recall some family members names now. She can recall the name of the president. She cannot recall the name of the street she lives on nor the full mailing address. Brain MRI is unremarkable for any acute lesions of infarct or stroke. Patient is awaiting vascular study with MRI of the head and neck to rule out carotid stenosis or thrombosis and echocardiogram. Patient will likely need eventual follow-up with neurology service. 2. Wlm-ntnmxjo-hsvnjxmsd diabetes mellitus. Patient will continue on her insulin pump with use of sliding scale insulin as needed. 3. Essential hypertension. This remains controlled on her usual home medication regimen. 4. Hypothyroidism. Patient continues with her current home medication regimen VS,Fishbone, I+O VS, Fishbone, I+O Laboratory Tests 02/15/19 05:48 Red Blood Count 3.46 L, Mean Corpuscular Volume 92.8, Mean Corpuscular Hemoglobin 30.6, Mean Corpuscular Hemoglobin Concent 33.0, Red Cell Distribution Width 11.8, Calcium Level 9.5, Aspartate Amino Transf (AST/SGOT) 14, Alanine Aminotransferase (ALT/SGPT) 14, Alkaline Phosphatase 67, Total Bilirubin 1.1 H, Triglycerides Level 88, LDL Cholesterol 26, Total Protein 5.7 L, Albumin 3.1 L Vital Signs Date Time Temp Pulse Resp B/P (MAP) Pulse Ox O2 Delivery O2 Flow Rate FiO2 02/15/19 09:26 142/69 02/15/19 08:00 98.1 79 17 100 02/14/19 20:42 Room Air I&O- Last 24 Hours up to 6 AM 02/15/19 06:00 Intake Total 100 ml Output Total 200 ml Balance -100 ml ZACHARY CORDERO MD Feb 15, 2019 12:01
--- NOTE | 2019-02-15 13:08 | REPVR ---
PROCEDURE INFORMATION: Exam: MR Angiography Neck Without and With Contrast Exam date and time: 02/15/2019 11:48 AM Clinical history: 78 years old, female; Type not specified; Patient HX: Memory loss that has since subsided, prior mri/a brain on pacs 02/14/19; Additional info: TIA TECHNIQUE: Imaging protocol: Magnetic resonance angiography of the neck without and with intravenous contrast. 3D rendering: MIP reconstructed images were created and reviewed. Contrast material: PROHANCE; Contrast volume: 14 ml; Contrast route: 20G ANGIOCATH; COMPARISON: MRA BRAIN W/O CONTRAST 02/14/2019 1:31 PM FINDINGS: Right common carotid artery: Unremarkable. No stenosis. No dissection or occlusion. Right internal carotid artery: Unremarkable extracranial segment. No stenosis. No dissection or occlusion. Right external carotid artery: Unremarkable. No stenosis. No dissection or occlusion of the origin. Right vertebral artery: Unremarkable. No stenosis. No dissection or occlusion. Left common carotid artery: Unremarkable. No stenosis. No dissection or occlusion. Left internal carotid artery: Unremarkable extracranial segment. No stenosis. No dissection or occlusion. Left external carotid artery: Unremarkable. No stenosis. No dissection or occlusion of the origin. Left vertebral artery: Unremarkable. No stenosis. No dissection or occlusion. IMPRESSION: No hemodynamically significant stenosis. Electronically signed by: Cristhian Copeland On 02/15/2019 13:08:37 PM
[2019-02-15 17:06] LABS: APPEARANCE, URINE CLEAR (CLEAR); BACTERIA, URINE AUTO NEGATIVE (NEGATIVE); BILIRUBIN, URINE AUTO NEGATIVE (NEGATIVE); BLOOD, URINE BLOOD NEGATIVE (NEGATIVE); COLOR, URINE YELLOW (YELLOW); GLUCOSE, URINE (UA) AUTO 2+ mg/dL (NEGATIVE); KETONE, URINE AUTO TRACE mg/dL (NEGATIVE); LEUKOCYTE ESTERASE, URINE AUTO 1+ (NEGATIVE); NITRITE, URINE AUTO NEGATIVE (NEGATIVE); PROTEIN, URINE AUTO NEGATIVE (NEGATIVE); RBC, URINE AUTO 2 /HPF (0-3); SPECIFIC GRAVITY URINE AUTO 1.025 (1.002-1.035); SQUAMOUS EPITHELIAL CELL UR AU 1 /HPF (0-6); UROBILINOGEN, URINE AUTO 0.2 mg/dL (0.0-2.0); WBC, URINE AUTO 8 /HPF (0-3)
--- NOTE | 2019-02-15 18:48 | ECGEPIP ---
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
[2019-02-15] MEDS: CYANOCOBALAMIN 500 MCG TAB PO SCH (20:52)
[2019-02-15] MEDS: OMEGA-3 1000MG CAPSULE PO SCH (20:52)
[2019-02-16 04:00] VITALS: BP 127/60
[2019-02-16] MEDS: HumaLOG INSULIN (NovoLOG) PER UNIT SC SCH ×4 (07:30→20:27)
[2019-02-16 08:00] VITALS: BP 132/50
[2019-02-16] MEDS ORDERED: HumaLOG INSULIN (NovoLOG) PER UNIT SC ONE ×2 (10:00→12:45)
[2019-02-16] MEDS: ENOXAPARIN 40 MG/0.4 ML SYRINGE (J1650) SC SCH (10:03)
[2019-02-16] MEDS: COSOPT OCUMETER PLUS 10ML (DORZOLAMIDE/TIMOLOL) OU SCH ×2 (10:04→20:27)
[2019-02-16] MEDS: ASPIRIN 81 MG CHEW TABLET PO SCH (10:05)
[2019-02-16] MEDS: ATORVASTATIN 20 MG TAB PO SCH (10:05)
[2019-02-16] MEDS: DOCUSATE SODIUM 100 MG CAP PO SCH ×2 (10:05→20:26)
[2019-02-16] MEDS: LOSARTAN 50 MG TAB PO SCH (10:09)
[2019-02-16] MEDS: PANTOPRAZOLE 40MG TAB (PROTONIX) PO SCH (10:09)
[2019-02-16] MEDS: LEVOTHYROXINE 112MCG TABLET (0.112MG) PO SCH (11:03)
[2019-02-16] MEDS: ACYCLOVIR 200 MG CAPSULE PO SCH ×2 (11:04→20:26)
[2019-02-16 12:00] VITALS: BP 136/60
[2019-02-16] MEDS ORDERED: POLYVINYL ALCOHOL OPHTH SOLN 15 ML(LIQUITEARS) OU PRN (13:00)
[2019-02-16] MEDS: MAGNESIUM OXIDE 400 MG TAB (MAG-OX) PO SCH (14:49)
[2019-02-16] MEDS: LEVEMIR (INSULIN DETEMIR) 1 UNITS/0.01ML SC SCH ×2 (14:49→20:27)
[2019-02-16 16:00] VITALS: BP 165/72
--- NOTE | 2019-02-16 18:47 | IPNPDOC ---
Text Note Date of Service The patient was seen on 02/16/19. NOTE SUBJECTIVE: The patient is seen multiple times today; including while she was undergoing echocardiogram. The patient is still having difficulty recalling certain facts. She cannot tell me who the president is and again cannot name the street that she lives on. She is admitted with an episode of transient global amnesia from which she is recovering. OBJECTIVE: Please see vital signs below Physical exam: HENT: Patient wears glasses. Neck is supple with no adenopathy or thyromegaly, oral mucosa is moist CV: Regular rate and rhythm with a normal S1 and S2 and a 2/6 systolic murmur. Respiratory: Clear to auscultation with no rhonchi, rales, wheezes or cough. Abdomen: Soft, nontender, nondistended, positive bowel tones. Extremities: No peripheral edema or lesions, pedal pulses are palpable. 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 Acute transient global amnesia. She is having some improvement; she can recall some family members names now. She cannot recall the name of the president. She cannot recall the name of the street she lives on nor the full mailing address. Brain MRI is unremarkable for any acute lesions of infarct or stroke. She has been ruled out for carotid stenosis or thrombosis by vascular MRI of the head and neck. Of interest, the patient does relate that she does have some dementia at baseline; however, this memory disruption is an acute change. Patient will need eventual follow-up with neurology service. In the meantime, she has done well with her physical therapy and occupational therapy evaluations and is not anticipated to have any home needs. 2. Stk-wcoxwgt-eekkfojrg diabetes mellitus. The patient has had hyperglycemia as she has not been able to utilize her insulin pump. We have placed her on basal bolus insulin with improvement. 3. Essential hypertension. This remains controlled on her usual home medication regimen. 4. Hypothyroidism. Patient continues with her current home medication regimen VS,Fishbone, I+O VS, Fishbone, I+O Vital Signs Date Time Temp Pulse Resp B/P (MAP) Pulse Ox O2 Delivery O2 Flow Rate FiO2 10/14/19 16:00 97.8 78 18 165/72 (385) 100 02/14/19 20:42 Room Air I&O- Last 24 Hours up to 6 AM 02/16/19 06:00 Intake Total 360 ml Output Total 400 ml Balance -40 ml ZACHARY CORDERO MD Feb 16, 2019 18:47
[2019-02-16 20:00] VITALS: BP 155/67
[2019-02-16] MEDS: OMEGA-3 1000MG CAPSULE PO SCH (20:26)
[2019-02-16] MEDS: CYANOCOBALAMIN 500 MCG TAB PO SCH (20:27)
[2019-02-16 23:59] VITALS: BP 140/63
[2019-02-17 04:00] VITALS: BP 122/77
[2019-02-17 08:00] VITALS: BP 160/70
[2019-02-17] MEDS: DOCUSATE SODIUM 100 MG CAP PO SCH ×2 (09:00→09:26)
[2019-02-17] MEDS: LEVEMIR (INSULIN DETEMIR) 1 UNITS/0.01ML SC SCH (09:24)
[2019-02-17] MEDS: HumaLOG INSULIN (NovoLOG) PER UNIT SC SCH ×2 (09:24→12:24)
[2019-02-17 09:25] VITALS: BP 160/70
[2019-02-17] MEDS: LOSARTAN 50 MG TAB PO SCH (09:25)
[2019-02-17] MEDS: ACYCLOVIR 200 MG CAPSULE PO SCH (09:25)
[2019-02-17] MEDS: ATORVASTATIN 20 MG TAB PO SCH (09:25)
[2019-02-17] MEDS: LEVOTHYROXINE 112MCG TABLET (0.112MG) PO SCH (09:25)
[2019-02-17] MEDS: ASPIRIN 81 MG CHEW TABLET PO SCH (09:25)
[2019-02-17] MEDS: PANTOPRAZOLE 40MG TAB (PROTONIX) PO SCH (09:25)
[2019-02-17] MEDS: MAGNESIUM OXIDE 400 MG TAB (MAG-OX) PO SCH (09:25)
[2019-02-17] MEDS: ENOXAPARIN 40 MG/0.4 ML SYRINGE (J1650) SC SCH (09:26)
[2019-02-17] MEDS: COSOPT OCUMETER PLUS 10ML (DORZOLAMIDE/TIMOLOL) OU SCH (09:26)
--- NOTE | 2019-02-17 11:06 | DS.PDOC ---
Discharge Summary General Date of Admission Feb 16, 2019 at 10:17 Date of Discharge February 17, 2019 Primary Care Physician: Elier Gonzalez Discharge Summary PROCEDURES PERFORMED DURING STAY: [None]. ADMITTING DIAGNOSES: 1. . DISCHARGE DIAGNOSES: 1. . COMPLICATIONS/CHIEF COMPLAINT: Transient Global Amnesia. HISTORY OF PRESENT ILLNESS: . HOSPITAL COURSE: . DISCHARGE MEDICATIONS: Please see below. ALLERGIES: Please see below. PHYSICAL EXAMINATION ON DISCHARGE: VITAL SIGNS: Please see below. GENERAL: HEENT: NECK: CARDIOVASCULAR EXAMINATION: RESPIRATORY EXAMINATION: ABDOMINAL EXAMINATION: EXTREMITIES: SKIN: NEUROLOGICAL EXAMINATION: PSYCHIATRIC EXAMINATION: LABORATORY DATA: Please see below. IMAGING: PROGNOSIS: ACTIVITY: [As tolerated]. DIET: DISCHARGE PLAN: DISPOSITION: . DISCHARGE INSTRUCTIONS: 1. . ITEMS TO FOLLOWUP ON ON OUTPATIENT: 1. . DISCHARGE CONDITION: [Stable]. TIME SPENT ON DISCHARGE: Greater than minutes. Vital Signs/I&Os Vital Signs Date Time Temp Pulse Resp B/P (MAP) Pulse Ox O2 Delivery O2 Flow Rate FiO2 02/17/19 09:25 160/70 02/17/19 08:00 97.0 82 18 100 02/14/19 20:42 Room Air I&O- Last 24 Hours up to 6 AM 02/17/19 06:00 Intake Total 1630 ml Output Total 850 ml Balance 780 ml Laboratory Data Labs 24H Laboratory Tests 2 02/16/19 11:44: Bedside Glucose (Misc Panel) 522*H 02/16/19 11:59: Bedside Glucose Confirm (Misc) 492*H 02/16/19 14:48: Bedside Glucose (Misc Panel) 318H 02/16/19 17:00: Bedside Glucose (Misc Panel) 191H 02/16/19 20:07: Bedside Glucose (Misc Panel) 131H 02/17/19 02:55: Bedside Glucose (Misc Panel) 57L 02/17/19 03:16: Bedside Glucose (Misc Panel) 75L 02/17/19 04:27: Bedside Glucose (Misc Panel) 139H 02/17/19 06:47: Bedside Glucose (Misc Panel) 211H FSBS Laboratory Tests Test 02/16/19 11:44 02/16/19 14:48 02/16/19 17:00 02/16/19 20:07 Range/Units Bedside Glucose (Misc Panel) 522 318 191 131 83-110 MG/DL Test 02/17/19 02:55 02/17/19 03:16 02/17/19 04:27 02/17/19 06:47 Range/Units Bedside Glucose (Misc Panel) 57 75 139 211 83-110 MG/DL Microbiology Microbiology 02/15/19 Urine Culture - Final, Complete Discharge Medications Scheduled Acyclovir (Acyclovir) 200 Mg Cap, 400 MG PO BID, (Reported) Aspirin (Aspirin) 81 Mg Chw, 81 MG PO DAILY, (Reported) Atorvastatin Calcium (Atorvastatin Calcium) 20 Mg Tab, 20 MG PO DAILY, (Reported) Bimatoprost (Lumigan) 2.5 Ml Drops, 1 DROP OU QHS, (Reported) Cholecalciferol (Vitamin D3) (Vitamin D3) 5,000 Unit Capsule, 5,000 UNIT PO 3XW, (Reported) SAT, SAT, SAT Cyanocobalamin (Vitamin B-12) (Vitamin B-12) 1,000 Mcg Tablet, 1,000 MCG PO QHS, (Reported) Dorzolamide HCl/Timolol Maleat (Cosopt Eye Drops) 1 Ml Soln, 1 DROP OU BID, (Reported) Insulin Glargine,Hum.rec.anlog (Lantus Solostar) 100 Unit/1 Ml Insuln.pen, 1 DOSE SC ASDIRECTED, (Reported) PATIENT HAS CONTINUOUS READINGS, IF READINGS ARE HIGH, SHE ADMINISTERS A FEW UNITS OF LANTUS Levothyroxine Sodium (Levothyroxine Sodium) 112 Mcg Tablet, 112 MCG PO DAILY, (Reported) Losartan Potassium (Losartan Potassium) 100 Mg Tab, 100 MG PO DAILY, (Reported) Magnesium Oxide (Magnesium) 400 Mg Capsule, 400 MG PO QHS, (Reported) Methazolamide (Methazolamide) 25 Mg Tablet, 25 MG PO BID, (Reported) Netarsudil Mesylate (Rhopressa) 2.5 Ml Drops, 1 DROP OU DAILY, (Reported) [place]-3/Dha/Epa/Fish Oil (Fish Oil 1,000 mg Softgel) 1 Each Capsule, 1,000 MG PO QHS, (Reported) Pantoprazole Sodium (Pantoprazole Sodium) 40 Mg Tablet.dr, 40 MG PO DAILY, (Re ported) [humalog via pump] , Unknown Dose SQ DAILY, (Reported) Scheduled PRN Nitroglycerin (Nitroglycerin) 0.4 Mg Sub, 0.4 MG SL NITRO PRN for PAIN, (Reported) Polyvinyl Alcohol/Povidone (Artificial Tears Drops) 15 Ml Drops, 1 DROP OU QID PRN for DRY EYES, (Reported) Allergies Coded Allergies: Penicillins (Verified Allergy, Unknown, 08/20/18) ZACHARY CORDERO MD Feb 17, 2019 11:06
--- NOTE | 2019-02-19 07:18 | ECHO ---
DATE OF PROCEDURE: 02/16/2019 REFERRING PHYSICIAN: Dr. Dandy Chow INDICATION: Transient cerebral ischemia, unspecified. HEIGHT 157 cm. WEIGHT: 64 kg. 2D MEASUREMENTS: Ventricular septum - 0.88 cm Posterior wall - 0.91 cm Left ventricle diastole - 3.8 cm Aortic root - 2.6 cm Left atrium - 3.6 cm Aortic annulus - 2.0 cm Left atrial volume index - 25 Inferior vena cava - 1.1 cm. DOPPLER MEASUREMENTS: Very mild aortic regurgitation. No aortic stenosis. Aortic valve velocity - 145 cm/s LVOT velocity - 109 cm/s LVOT VTI - 28.9 cm Mitral E velocity 119 cm/s Mitral A velocity 161 cm/s Mitral deceleration time - 173 milliseconds. No mitral stenosis. No mitral regurgitation. No tricuspid regurgitation. No pulmonic regurgitation. Pulmonary artery systolic pressure - 9 mmHg. MITRAL ANNULAR TISSUE DOPPLER: E prime lateral - 6.34 cm/s Mitral annular E prime septal velocity - 5.36 cm/s DESCRIPTION: The rhythm was sinus. Images quality was fair. No pericardial effusion. CONCLUSIONS: 1. Normal left ventricle, internal dimensions and wall thickness. Normal regional LV wall motion and wall thickness. Normal LV systolic function LVEF 70% by visual estimated. Grade 1 LV diastolic dysfunction. 2. Moderate aortic valve stenosis with a three-cuspid aortic valve. Very mild aortic regurgitation. No aortic stenosis. 3. Moderate mitral annular tissue calcification. No mitral regurgitation or mitral stenosis. 4. Otherwise, normal appearing echocardiogram Doppler findings.
--- NOTE | 2019-02-26 17:27 | DS.PDOC ---
Discharge Summary General Date of Admission Feb 16, 2019 at 10:17 Date of Discharge February 17, 2019 Specialist/Consultants Involve: ALEXA LLAMAS MD Discharge Summary PROCEDURES PERFORMED DURING STAY: [Echocardiogram]. ADMITTING DIAGNOSES: 1. [Transient global amnesia]. DISCHARGE DIAGNOSES: 1. [Transient global amnesia, essential hypertension, NIDDM, dyslipidemia, hypothyroidism, CAD, anxiety, glaucoma, dementia]. COMPLICATIONS/CHIEF COMPLAINT: Transient Global Amnesia. HISTORY OF PRESENT ILLNESS/HOSPITAL COURSE: [78 year old female with acute loss of short term memory. She did not have other symptoms such as weakness, or slurred speech. She no had no difficulty with ambulation or balance. She could not recall the names of family members, the year, her address, the president. Head CT, brain MRI and vascular studies were negative for stroke or other lesion. The patient gradually regained some memory and developed strategies for remembering facts.]. DISCHARGE MEDICATIONS: Please see below. ALLERGIES: Please see below. PHYSICAL EXAMINATION ON DISCHARGE: HENT: Patient wears glasses. Neck is supple with no adenopathy or thyromegaly, oral mucosa is moist CV: Regular rate and rhythm with a normal S1 and S2 and a 2/6 systolic murmur. Respiratory: Clear to auscultation with no rhonchi, rales, wheezes or cough. Abdomen: Soft, nontender, nondistended, positive bowel tones. Extremities: No peripheral edema or lesions, pedal pulses are palpable. 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 IMAGING: PROGNOSIS: ACTIVITY: [As tolerated]. DIET: [Consistent carbohydrate] DISCHARGE PLAN: [She is otherwise medically stable for discharge to home and she has adequate support. She will follow up with neurology services in 2 - 3 weeks.] DISPOSITION: 06 Home Health Service. DISCHARGE INSTRUCTIONS: 1. . ITEMS TO FOLLOWUP ON ON OUTPATIENT: 1. . DISCHARGE CONDITION: [Stable]. TIME SPENT ON DISCHARGE: Greater than [40] minutes. Discharge Medications Scheduled Acyclovir (Acyclovir) 200 Mg Cap, 400 MG PO BID, (Reported) Aspirin (Aspirin) 81 Mg Chw, 81 MG PO DAILY, (Reported) Atorvastatin Calcium (Atorvastatin Calcium) 20 Mg Tab, 20 MG PO DAILY, (Reported) Bimatoprost (Lumigan) 2.5 Ml Drops, 1 DROP OU QHS, (Reported) Cholecalciferol (Vitamin D3) (Vitamin D3) 5,000 Unit Capsule, 5,000 UNIT PO 3XW, (Reported) MON, SAT, FRI Cyanocobalamin (Vitamin B-12) (Vitamin B-12) 1,000 Mcg Tablet, 1,000 MCG PO QHS, (Reported) Dorzolamide HCl/Timolol Maleat (Cosopt Eye Drops) 1 Ml Soln, 1 DROP OU BID, (Reported) Insulin Glargine,Hum.rec.anlog (Lantus Solostar) 100 Unit/1 Ml Insuln.pen, 1 DOSE SC ASDIRECTED, (Reported) PATIENT HAS CONTINUOUS READINGS, IF READINGS ARE HIGH, SHE ADMINISTERS A FEW UNITS OF LANTUS Levothyroxine Sodium (Levothyroxine Sodium) 112 Mcg Tablet, 112 MCG PO DAILY, (Reported) Losartan Potassium (Losartan Potassium) 100 Mg Tab, 100 MG PO DAILY, (Reported) Magnesium Oxide (Magnesium) 400 Mg Capsule, 400 MG PO QHS, (Reported) Methazolamide (Methazolamide) 25 Mg Tablet, 25 MG PO BID, (Reported) Netarsudil Mesylate (Rhopressa) 2.5 Ml Drops, 1 DROP OU DAILY, (Reported) [place]-3/Dha/Epa/Fish Oil (Fish Oil 1,000 mg Softgel) 1 Each Capsule, 1,000 MG PO QHS, (Reported) Pantoprazole Sodium (Pantoprazole Sodium) 40 Mg Tablet.dr, 40 MG PO DAILY, (Reported) [humalog via pump] , Unknown Dose SQ DAILY, (Reported) Scheduled PRN Nitroglycerin (Nitroglycerin) 0.4 Mg Sub, 0.4 MG SL NITRO PRN for PAIN, (Reported) Polyvinyl Alcohol/Povidone (Artificial Tears Drops) 15 Ml Drops, 1 DROP OU QID PRN for DRY EYES, (Reported) Allergies Coded Allergies: Penicillins (Verified Allergy, Unknown, 08/20/18) ZACHARY CORDERO MD Feb 26, 2019 17:27
== END 2019-02-17 13:58 | disposition home health service (06) | DRG 72 ==
LOC: M ED 10:32 → EDBD 10:32 → M ED INP 10:33 → M PCU 21:44 → INTOOBSV 02-16 10:17 → OBSVTOIN 02-16 10:17
PROVIDERS: ADMIT Internal Medicine; ATTEND Internal Medicine
DX: G45.4 Transient global amnesia (principal); I10 Essential (primary) hypertension; E03.9 Hypothyroidism, unspecified; E78.5 Hyperlipidemia, unspecified; I25.10 Atherosclerotic heart disease of native coronary artery without angina pectoris; E11.21 Type 2 diabetes mellitus with diabetic nephropathy; H40.9 Unspecified glaucoma; E55.9 Vitamin D deficiency, unspecified; F41.9 Anxiety disorder, unspecified; F03.90 Unspecified dementia, unspecified severity, without behavioral disturbance, psychotic disturbance, mood disturbance, and anxiety; Z79.82 Long term (current) use of aspirin; Z79.4 Long term (current) use of insulin; Z79.899 Other long term (current) drug therapy; Z88.0 Allergy status to penicillin; Z86.010 Personal history of colon polyps; Z90.49 Acquired absence of other specified parts of digestive tract; Z98.41 Cataract extraction status, right eye; Z98.42 Cataract extraction status, left eye; Z89.411 Acquired absence of right great toe

== ENCOUNTER → 2019-02-18 | Outpatient (REF) | payer MEDICARE ==
[~2019-02-18] MED LIST changes: +GNPSOL OU; +LANTINJ4 SC; +MAGN400C2 PO; +METH25TA3 PO; +NEUR100C PO; +PANT40TA3 PO; +RHOP0.02 OU; +VITA100018 PO
[2019-02-18 16:39] LABS: FREE T4 1.48 NG/DL (0.76-1.46); RHEUMATOID FACTOR QUANT < 10.0 IU/ML (<15.0); THYROID STIMULATING HORMONE 0.174 uIU/ML (0.358-3.740)
[2019-02-18 16:42] LABS: FOLATE 10.9 NG/ML (>5.4); VITAMIN B12 LEVEL > 2000 PG/ML (247-911)
== END ==
LOC: M LABNEURO 13:15
PROVIDERS: ATTEND Psychiatry & Neurology Neurology
DX: E07.9 Disorder of thyroid, unspecified (principal); R41.3 Other amnesia

== ENCOUNTER → 2019-03-26 | Outpatient (REF) | payer MEDICARE ==
[2019-03-26 11:42] LABS: ALBUMIN 3.7 GM/DL (3.2-5.2); CALCIUM LEVEL 9.6 MG/DL (8.8-10.2); CHOLESTEROL RISK RATIO 1.834 (<5); CREATININE FOR GFR 1.09 MG/DL (0.55-1.30); GLOMERULAR FILTRATION RATE 51.7 (>39); MAGNESIUM LEVEL 2.1 MG/DL (1.8-2.4); POTASSIUM SERUM 4.9 MEQ/L (3.5-5.1); THYROID STIMULATING HORMONE 0.187 uIU/ML (0.358-3.740); TOTAL PROTEIN 6.7 GM/DL (6.4-8.2)
[2019-03-26 11:48] LABS: CREATININE, URINE 39.7 MG/DL; MALB URINE SIEMENS 14.5 MG/L; MAU/CREAT RATIO 36.5 MCG/MG (0.0-30.0)
[2019-03-26 13:19] LABS: HEMOGLOBIN A1c 8.7 %
== END ==
LOC: M SFHCPLAZ 07:57
PROVIDERS: ATTEND Internal Medicine
DX: I10 Essential (primary) hypertension (principal); E10.29 Type 1 diabetes mellitus with other diabetic kidney complication; E78.00 Pure hypercholesterolemia, unspecified; E03.9 Hypothyroidism, unspecified

== ENCOUNTER → 2019-06-10 | Outpatient (CLI) | payer MEDICARE ==
[2019-06-10 10:39] LABS: HEMATOCRIT 38.8 % (36.0-47.0); HEMOGLOBIN 12.1 g/dl (12.0-15.5); MEAN CORPUSCULAR HEMOGLOBIN 30.1 pg (27.0-33.0); MEAN CORPUSCULAR HGB CONC 31.2 g/dl (32.0-36.5); MEAN CORPUSCULAR VOLUME 96.5 fl (80.0-96.0); PLATELET COUNT, AUTOMATED 207 10^3/uL (150-450); RED BLOOD COUNT 4.02 10^6/uL (4.00-5.40); WHITE BLOOD COUNT 7.7 10^3/uL (4.0-10.0)
[2019-06-10 10:58] LABS: HEMOGLOBIN A1c 8.9 %
[2019-06-10 11:16] LABS: ALBUMIN 3.8 GM/DL (3.2-5.2); BILIRUBIN,TOTAL 0.7 MG/DL (0.2-1.0); CALCIUM LEVEL 9.4 MG/DL (8.8-10.2); CREATININE FOR GFR 1.15 MG/DL (0.55-1.30); GLOMERULAR FILTRATION RATE 48.6 (>39); MAGNESIUM LEVEL 2.1 MG/DL (1.8-2.4); POTASSIUM SERUM 5.2 MEQ/L (3.5-5.1); THYROID STIMULATING HORMONE 0.475 uIU/ML (0.358-3.740); TOTAL PROTEIN 6.3 GM/DL (6.4-8.2)
== END ==
LOC: M PLALAB 08:06
PROVIDERS: ATTEND Internal Medicine
DX: E10.29 Type 1 diabetes mellitus with other diabetic kidney complication (principal); I12.9 Hypertensive chronic kidney disease with stage 1 through stage 4 chronic kidney disease, or unspecified chronic kidney disease; E03.9 Hypothyroidism, unspecified; Z86.010 Personal history of colon polyps; N18.9 Chronic kidney disease, unspecified

== ENCOUNTER → 2019-11-10 | Outpatient (REF) | payer MEDICARE | LOC: M SFHCPLAZ 15:53 | PROVIDERS: ATTEND Internal Medicine | DX: I10 Essential (primary) hypertension (principal); E10.29 Type 1 diabetes mellitus with other diabetic kidney complication; E78.00 Pure hypercholesterolemia, unspecified ==

== ENCOUNTER → 2019-11-12 | Outpatient (REF) | payer MEDICARE ==
[~2019-11-12] MED LIST changes: +ACYC400T PO; +ALCO1MED8 XX; +AMLO1TAB24 PO; -AMLO5TAB6 PO; +BD P31MI2 SC; +CARE1KIT XX; +CITA10TA5 PO; +CLOP75TA2 PO; +DORZ2SOL5 OU; +GLUC1KIT IM; +INSUDET SC; +INSUHUMDS SC; +LANCMIS33 TOP; +LEVO250T12 PO; +NORV5TAB PO; +PANT40TA29 PO; -PANT40TA3 PO; +PATIENT COMMENT; +PLAV1TAB2 PO; +SYNT100T PO; +vitamin D PO
[2019-11-12 15:01] LABS: ALBUMIN 3.6 GM/DL (3.2-5.2); BILIRUBIN,TOTAL 1.1 MG/DL (0.2-1.0); CALCIUM LEVEL 9.3 MG/DL (8.8-10.2); CHOLESTEROL RISK RATIO 1.955 (<5); CREATININE FOR GFR 1.31 MG/DL (0.55-1.30); GLOMERULAR FILTRATION RATE 41.7 (>39); MAGNESIUM LEVEL 2.1 MG/DL (1.8-2.4); TOTAL PROTEIN 6.5 GM/DL (6.4-8.2)
[2019-11-12 15:15] LABS: MALB URINE SIEMENS 24.9 MG/L; MAU/CREAT RATIO 19.7 MCG/MG (0.0-30.0)
[2019-11-12 15:28] LABS: HEMOGLOBIN A1c 8.8 %
== END ==
LOC: M SFHCPLAZ 08:01
PROVIDERS: ATTEND Internal Medicine
DX: I10 Essential (primary) hypertension (principal); E10.29 Type 1 diabetes mellitus with other diabetic kidney complication; E78.00 Pure hypercholesterolemia, unspecified

== ENCOUNTER 2020-02-29 21:25 | Inpatient (IN) | payer MEDICARE ==
[~2020-02-29] VITALS: Ht 162.6 cm; Wt 77.0 kg
[~2020-02-29 21:25] MED LIST changes: -ACYC400T PO; -ALCO1MED8 XX; -BD P31MI2 SC; -CARE1KIT XX; -CITA10TA5 PO; -CLOP75TA2 PO; -DORZ2SOL5 OU; -GLUC1KIT IM; -INSUDET SC; -INSUHUMDS SC; -LANCMIS33 TOP; -LEVO250T12 PO; -NORV5TAB PO; -PATIENT COMMENT; -PLAV1TAB2 PO; -SYNT100T PO; -vitamin D PO
[2020-02-29] MEDS ORDERED: PLAV1TAB2 PO (22:04)
[2020-02-29] MEDS ORDERED: NORV5TAB PO (22:05)
[2020-02-29] MEDS ORDERED: ATOR1TAB21 PO (22:05)
[2020-02-29] MEDS ORDERED: vitamin D PO (22:12)
[2020-02-29] MEDS ORDERED: CITA10TA5 PO (22:14)
[2020-02-29] MEDS ORDERED: NS 1,000 ML IV ONE (22:15)
[2020-02-29 22:45] LABS: VENOUS BASE EXCESS -2.6 (-2.0-2.0); VENOUS HCO3 24.4 MEQ/L (23.0-27.0); VENOUS PARTIAL PRESSURE CO2 51.7 mmHg (38.0-50.0); VENOUS PARTIAL PRESSURE O2 46.5 mmHg (30.0-50.0); VENOUS PH 7.292 UNITS (7.330-7.430)
--- NOTE | 2020-02-29 22:49 | REPVR ---
PROCEDURE INFORMATION: Exam: CT Head Without Contrast Exam date and time: 02/29/2020 10:45 PM Age: 79 years old Clinical indication: Altered mental status/memory loss TECHNIQUE: Imaging protocol: Computed tomography of the head without contrast. Radiation optimization: All CT scans at this facility use at least one of these dose optimization techniques: automated exposure control; mA and/or kV adjustment per patient size (includes targeted exams where dose is matched to clinical indication); or iterative reconstruction. COMPARISON: CT Head without contrast 02/14/2019 11:03 AM FINDINGS: Brain: There is moderate age related parenchymal volume loss. White matter changes are demonstrated in the subcortical, centrum semiovale and periventricular white matter consistent with age related small vessel white matter ischemic changes. Diffuse cerebellar atrophy. Cerebral ventricles: The degree of ventricular dilatation is normal for age and/or degree of atrophy present. Bones/joints: Unremarkable. No acute fracture. Paranasal sinuses: Visualized sinuses are unremarkable. No fluid levels. Mastoid air cells: Visualized mastoid air cells are well aerated. Vasculature: Atherosclerotic calcifications are demonstrated in the intracranial carotid arteries bilaterally as well as in the vertebral basilar system. Soft tissues: Unremarkable. IMPRESSION: 1. There is moderate age related parenchymal volume loss. White matter changes are demonstrated in the subcortical, centrum semiovale and periventricular white matter consistent with age related small vessel white matter ischemic changes. 2. The degree of ventricular dilatation is normal for age and/or degree of atrophy present. 3. Diffuse cerebellar atrophy. 4. No acute intracranial abnormalities. Electronically signed by: Reinaldo Cifuentes On 02/29/2020 22:49:52 PM
[2020-02-29 22:51] LABS: BASO # 0.1 10^3/uL (0.0-0.2); BASO % 0.6 % (0.0-1.0); EOS # 0.2 10^3/uL (0.0-0.5); HEMATOCRIT 35.4 % (36.0-47.0); HEMOGLOBIN 11.3 g/dl (12.0-15.5); LYMPH % 24.5 % (24.0-44.0); MEAN CORPUSCULAR HEMOGLOBIN 30.1 pg (27.0-33.0); MEAN CORPUSCULAR HGB CONC 31.9 g/dl (32.0-36.5); MEAN CORPUSCULAR VOLUME 94.1 fl (80.0-96.0); MONO # 0.8 10^3/uL (0.0-0.8); MONO % 10.1 % (0.0-5.0); NEUTROPHILS # 5.2 10^3/uL (1.5-8.5); NEUTROPHILS % 62.6 % (36.0-66.0); PLATELET COUNT, AUTOMATED 228 10^3/uL (150-450); RED BLOOD COUNT 3.76 10^6/uL (4.00-5.40); WHITE BLOOD COUNT 8.3 10^3/uL (4.0-10.0)
[2020-02-29 23:11] LABS: HEMOGLOBIN A1c 7.9 %
[2020-02-29 23:32] LABS: BILIRUBIN,DIRECT 0.2 MG/DL (0.0-0.2); BILIRUBIN,TOTAL 0.8 MG/DL (0.2-1.0); THYROID STIMULATING HORMONE 0.653 uIU/ML (0.358-3.740); TOTAL PROTEIN 6.7 GM/DL (6.4-8.2)
[2020-02-29] MEDS ORDERED: cefTRIAXone SOD 2 GM in D5W MINI-BAG PLUS 50 ML IV ONE (23:45)
[2020-03-01] MEDS ORDERED: GLUC1KIT IM (00:26)
[2020-03-01] MEDS ORDERED: RHOP0.02 OU (00:26)
[2020-03-01] MEDS ORDERED: LOSA100T50 PO (00:26)
[2020-03-01] MEDS ORDERED: CLOP75TA2 PO (00:26)
[2020-03-01] MEDS ORDERED: PANT40TA29 PO (00:26)
[2020-03-01] MEDS ORDERED: BIMA01SOL OU (00:26)
[2020-03-01] MEDS ORDERED: AMLO1TAB24 PO (00:26)
[2020-03-01] MEDS ORDERED: ATOR1TAB21 PO (00:26)
[2020-03-01] MEDS ORDERED: SYNT100T PO (00:26)
[2020-03-01] MEDS ORDERED: DORZ2SOL5 OU (00:26)
[2020-03-01] MEDS ORDERED: ACYC400T PO (00:26)
[2020-03-01] MEDS ORDERED: METH25TA3 PO (00:26)
[2020-03-01] MEDS ORDERED: INSUHUMDS SC (00:26)
[2020-03-01] MEDS ORDERED: PATIENT COMMENT (00:27)
[2020-03-01] MEDS ORDERED: MAALOX 30 ML SUSP *UDC PO PRN (00:30)
[2020-03-01] MEDS ORDERED: MOM 30ML SUSPENSION UDC PO PRN (00:30)
[2020-03-01] MEDS ORDERED: ACETAMINOPHEN TAB 650MG DOSE (2X325MG) PO PRN (00:30)
--- NOTE | 2020-03-01 01:05 | REPVR ---
PROCEDURE INFORMATION: Exam: XR Chest, 1 View Exam date and time: 03/01/2020 12:50 AM Age: 79 years old Clinical indication: Other: See addditional info below; Additional info: Hypercapnea and confusion R/O pna TECHNIQUE: Imaging protocol: XR of the chest Views: 1 view. COMPARISON: CR PORTABLE CHEST X-RAY 02/14/2019 11:15 AM FINDINGS: Lungs: Degree of lung inflation is normal. No evidence of pulmonary edema. No focal consolidation or parenchymal lung mass. Pleural space: No pleural effusion or pneumothorax. Heart/Mediastinum: Cardiac silhouette appears normal. No adenopathy or hilar mass. Bones/joints: Osseous structures show no concerning abnormality. IMPRESSION: No acute or focal cardiopulmonary process. Electronically signed by: Steven Peoples On 03/01/2020 01:05:12 AM
[2020-03-01 02:50] VITALS: BP 142/69
[2020-03-01] MEDS ORDERED: GLUCAGON INJ 1MG VIAL SC PRN (04:00)
[2020-03-01] MEDS ORDERED: GLUCOSE 4GM CHEW TABLET PO PRN (04:00)
[2020-03-01] MEDS ORDERED: HumaLOG INSULIN (NovoLOG) PER UNIT SC SCH (04:00)
[2020-03-01] MEDS ORDERED: DEXTROSE 50% 50 ML SYRINGE IV PRN (04:00)
--- NOTE | 2020-03-01 04:01 | HPEPDOC ---
[facility] Medical History & Physical Date of Admission Mar 01, 2020 Date of Service: Mar 01, 2020 Primary Care Physician: Elier Gonzalez Attending Physician: OMER DIXON MD History and Physical TIME OF SERVICE: 1235 AM CHIEF COMPLAINT: confusion HISTORY OF PRESENT ILLNESS: This 79-year-old female was brought to the hospital by EMS after her called them. The patient couldn't explain why she came to the ER, but per discussion with Sandra Talley the patient's family reported that she has s been acting paranoid and confused for a few days and reported seeing kids pl val[place]io in her backyard. The patient denied having nausea, vomiting, fever, chills, abdominal pain, back pain, joint pain, rashes, or any other acute complaints. 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 HOME MEDICATIONS: Please see below. PHYSICAL EXAMINATION: Vital Signs Date Time Temp Pulse Resp B/P (MAP) Pulse Ox O2 Delivery O2 Flow Rate FiO2 02/29/20 21:36 96.3 70 18 169/71 (103) 99 GEN: well-nourished / well developed/ NAD INTEGUMENT: not flushed/ not jaundice HEENT: lips acyanotic /mucus membranes moist and pink CVS: RRR/NMRG/ radial pulses intact / no lower extremity edema LUNGS: able to speak full sentences without stopping to take a breath / no coughing / lungs are clear to auscultation bilaterally on room air ABDOMEN: Contour (flat) /soft & not tender with palpation MSK/EXTREMITIES: NCAT / range of motion intact in all 4 extremities NEURO: CN 2-12 are grossly intact / speech is not dysarthric PSYCH: alert and oriented to person place and time/ able to understand and follow all commands LABORATORY DATA: 02/29/20 22:35 02/29/20 22:35: Immature Granulocyte % (Auto) 0.2, Neutrophils (%) (Auto) 62.6, Lymphocytes (%) (Auto) 24.5, Monocytes (%) (Auto) 10.1H, Eosinophils (%) (Auto) 2.0, Basophils (%) (Auto) 0.6, Neutrophils # (Auto) 5.2, Lymphocytes # (Auto) 2.0, Monocytes # (Auto) 0.8, Eosinophils # (Auto) 0.2, Basophils # (Auto) 0.1, Nucleated Red Blood Cells % (auto) 0.0, Urine Color YELLOW, Urine Appearance CLEAR, Urine pH 5.0, Urine Specific [place] 1.014, Urine Protein NEGATIVE, Urine Glucose (UA) 3+H, Urine Ketones NEGATIVE, Urine Blood NEGATIVE, Urine Nitrite NEGATIVE, Urine Bilirubin NEGATIVE, Urine Urobilinogen 0.2, Urine Leukocyte Esterase 3+H, Urine WBC (Auto) 39H, Urine RBC (Auto) 1, Urine Hyaline Casts (Auto) 1, Urine Bacteria (Auto) 1+H, Urine Squamous Epithelial Cells 0, Urine Sperm (Auto) , Blood Gas Bicarbonate Standard 22.0, Venous Blood pH 7.292L, Venous Blood Partial Pressure CO2 51.7H, Venous Blood Partial Pressure O2 46.5, Venous Blood Total Carbon Dioxide 26.0, Venous Blood HCO3 24.4, Venous Blood Oxygen Saturation 80.0, Venous Blood Base Excess -2.6L, Estimated Mean Plasma Glucose 180H, Hemoglobin A1c 7.9, Osmolality 296, Magnesium Level 2.0, Total Bilirubin 0.8, Direct Bilirubin 0.2, Aspartate Amino Transf (AST/SGOT) 14, Alanine Aminotransferase (ALT/SGPT) 15, Alkaline Phosphatase 77, Ammonia 12, Total Protein 6.7, Albumin 4.0, Albumin/Globulin Ratio 1.5, Thyroid Stimulating Hormone (TSH) 0.653 02/29/20 22:51: POC Glucose (Misc Panel) 162H, POC Sodium (Misc Panel) 138, POC Potassium (Misc Panel) 4.2, POC Chloride (Misc Panel) 101, POC Total CO2 (Misc Panel) 24.0, POC Blood Urea Nitrogen (Misc Panel 26, POC Ionized Calcium (Misc Panel) 5.1, POC Creatinine (Misc Panel) 1.1, POC Hematocrit (Misc Panel) 38.0 IMAGING: CT head "1. There is moderate age related parenchymal volume loss. White matter changes are demonstrated in the subcortical, centrum semiovale and periventricular white matter consistent with age related small vessel white matter ischemic changes. 2. The degree of ventricular dilatation is normal for age and/or degree of atrophy present. 3. Diffuse cerebellar atrophy. 4. No acute intracranial abnormalities." Chest x-ray "No acute or focal cardiopulmonary process. " MICROBIOLOGY: 03/01/20 Respiratory Virus Panel (PCR) ([facility]) - Final, Complete 02/29/20 Urine Culture, Received Pending ASSESSMENT: Ms. Morales is a 79-year-old with a history of dementia, hypothyroidism, type 1 DM with retinopathy, neuropathy and nephropathy, HTN, CAD,who was brought to the hospital for evaluation of altered mental status; she will be evaluation of encephalopathy. PLAN: 1. Encephalopathy Possibly due to UTI or Hypercapnia or worsening dementia Plan: admit to medical floor/1:1 sitter/treat UTI / f/u B12, TSH and folate / the daytime team may consider contacting her Neurologist or PCP to get more information about the nature of her dementia ( lewy body vs alzhimers ?) / will consult PFS for dc planning 2. UTI Plan: switch to Levofloxacin PO pending cx 3. Mild Hypercapnia Cause TBD Chest xray and respiratory panel were unrevealing Plan: continuos pulse ox 4. Hypothyroidism Plan: Levothyroxine 5. 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 Chronic Hypertension Plan: Amlodipine, losartan 8. CAD Plan: Atorvastatin/ASA was discontinued when she was started on clopidogrel 9. Carotid artery disease stenosis Plan: Clopidogrel 10. Glaucoma Plan: Dorzolamide timolol, Lumigan eyedrops DVT PROPHYLAXIS: lovenox DISPOSITION: home possibly tomorrow vs placement after more than 2 midnight's stay Home Medications Scheduled Acyclovir (Acyclovir) 400 Mg Tablet, 400 MG PO BID Amlodipine Besylate (Amlodipine Besylate) 5 Mg Tablet, 5 MG PO DAILY Atorvastatin Calcium (Atorvastatin Calcium) 20 Mg Tablet, 20 MG PO DAILY Bimatoprost (Lumigan) 0.01% 2.5ML Drops, 1 DROP OU QHS Clopidogrel Bisulfate (Clopidogrel) 75 Mg Tablet, 75 MG PO DAILY Dorzolamide HCl/Timolol Maleat (Dorzolamide-Timolol Eye Drops) 10 Ml Drops, 1 D ROP OU BID Insulin Human Lispro (Humalog) 100 Unit/1 Ml Vial, 1 DOSE SC ASDIRECTED VIA INSULIN PUMP Levothyroxine Sodium (Synthroid) 100 Mcg Tablet, 100 MCG PO DAILY Losartan Potassium (Losartan Potassium) 100 Mg Tablet, 100 MG PO DAILY Methazolamide (Methazolamide) 25 Mg Tablet, 25 MG PO DAILY Netarsudil Mesylate (Rhopressa) 2.5 Ml Drops, 1 DOSE OU DAILY Pantoprazole Sodium (Pantoprazole Sodium) 40 Mg Tablet.dr, 40 MG PO DAILY Scheduled PRN Glucagon,Human Recombinant (Glucagon Emergency Kit) 1 Mg Vial, 1 MG IM ASDIRECTE D PRN for LOW BLOOD SUGAR Miscellaneous Medications [Patient Comment] PATIENT IS NOT A GOOD HISTORIAN. COMPLETED MED REC VIA EXTERNAL MED HISTORY. Allergies Coded Allergies: Penicillins (Verified Allergy, Unknown, 08/20/18) A-FIB/CHADSVASC A-FIB History Current/History of A-Fib/PAF?: No Current PO Anticoag Therapy: No OMER DIXON MD Mar 01, 2020 04:01
[2020-03-01 06:00] VITALS: BP 153/76
[2020-03-01] MEDS: LevoFLOXacin 250 MG TABLET PO SCH (06:26)
[2020-03-01] MEDS: LEVOTHYROXINE 100MCG TABLET (0.1MG) PO SCH (06:26)
[2020-03-01] MEDS ORDERED: HumaLOG INSULIN (NovoLOG) PER UNIT SC STA (07:16)
[2020-03-01] MEDS: HumaLOG INSULIN (NovoLOG) PER UNIT SC SCH ×4 (07:21→21:00)
[2020-03-01 07:31] LABS: HEMATOCRIT 32.2 % (36.0-47.0); HEMOGLOBIN 10.8 g/dl (12.0-15.5); MEAN CORPUSCULAR HEMOGLOBIN 31.2 pg (27.0-33.0); MEAN CORPUSCULAR HGB CONC 33.5 g/dl (32.0-36.5); MEAN CORPUSCULAR VOLUME 93.1 fl (80.0-96.0); PLATELET COUNT, AUTOMATED 190 10^3/uL (150-450); RED BLOOD COUNT 3.46 10^6/uL (4.00-5.40); WHITE BLOOD COUNT 7.4 10^3/uL (4.0-10.0)
[2020-03-01 07:39] LABS: HEMATOCRIT 32.2 % (36.0-47.0)
[2020-03-01 07:49] LABS: BLOOD UREA NITROGEN 23 MG/DL (7-18); CALCIUM LEVEL 9.3 MG/DL (8.8-10.2); CARBON DIOXIDE LEVEL 23 MEQ/L (21-32); CHLORIDE LEVEL 105 MEQ/L (98-107); CREATININE FOR GFR 1.06 MG/DL (0.55-1.30); GLOMERULAR FILTRATION RATE 53.2 (>39); GLUCOSE, FASTING 419 MG/DL (70-100); SODIUM LEVEL 136 MEQ/L (136-145)
[2020-03-01] MEDS: COSOPT OCUMETER PLUS 10ML (DORZOLAMIDE/TIMOLOL) OU SCH ×2 (08:43→21:11)
[2020-03-01] MEDS: PANTOPRAZOLE 40MG TAB (PROTONIX) PO SCH (08:44)
[2020-03-01] MEDS: amLODIPine 5 MG TAB PO SCH (08:44)
[2020-03-01] MEDS: LOSARTAN 50MG TABLET PO SCH (08:44)
[2020-03-01] MEDS: CLOPIDOGREL 75 MG TAB PO SCH (08:44)
[2020-03-01] MEDS: ATORVASTATIN 20 MG TAB PO SCH (08:44)
[2020-03-01] MEDS: ENOXAPARIN 40MG/0.4ML SYRINGE (J1650 PER 10MG) SC SCH (08:48)
[2020-03-01 10:00] LABS: VITAMIN B12 LEVEL > 2000 PG/ML (247-911)
[2020-03-01 22:00] VITALS: BP 106/49
[2020-03-02] MEDS ORDERED: cefTRIAXone SOD 1 GM in D5W MINI-BAG PLUS 50 ML IV SCH ×2
[2020-03-02 05:29] LABS: BASO # 0.1 10^3/uL (0.0-0.2); BASO % 0.7 % (0.0-1.0); EOS # 0.1 10^3/uL (0.0-0.5); EOS % 1.8 % (0.0-3.0); HEMATOCRIT 34.6 % (36.0-47.0); HEMOGLOBIN 11.2 g/dl (12.0-15.5); LYMPH # 2.3 10^3/uL (1.5-5.0); LYMPH % 32.5 % (24.0-44.0); MEAN CORPUSCULAR HEMOGLOBIN 30.4 pg (27.0-33.0); MEAN CORPUSCULAR HGB CONC 32.4 g/dl (32.0-36.5); MONO # 0.7 10^3/uL (0.0-0.8); MONO % 10.3 % (0.0-5.0); NEUTROPHILS # 3.9 10^3/uL (1.5-8.5); NEUTROPHILS % 54.6 % (36.0-66.0); PLATELET COUNT, AUTOMATED 193 10^3/uL (150-450); RED BLOOD COUNT 3.68 10^6/uL (4.00-5.40); WHITE BLOOD COUNT 7.2 10^3/uL (4.0-10.0)
[2020-03-02] MEDS: LEVOTHYROXINE 100MCG TABLET (0.1MG) PO SCH (05:49)
[2020-03-02] MEDS: LevoFLOXacin 250 MG TABLET PO SCH (05:49)
[2020-03-02 06:00] VITALS: BP 132/51
[2020-03-02 06:02] LABS: CALCIUM LEVEL 8.9 MG/DL (8.8-10.2); CREATININE FOR GFR 1.09 MG/DL (0.55-1.30); GLOMERULAR FILTRATION RATE 51.5 (>39); POTASSIUM SERUM 4.6 MEQ/L (3.5-5.1)
--- NOTE | 2020-03-02 07:17 | IPNPDOC ---
Date Seen The patient was seen on 03/02/20. Progress Note SUBJECTIVE: Yesterday, c/o "not feeling well," found to be hyperglycemic. no fever or chills overnight. denies hematuria, urgency, frequency. urine cx still pending "I dont' know where I am, or what I did before I got here." pt remembers having 2 children min in [place] and heath in [place], but "I'm not sure if I have a , or maybe we are . I don't know." OBJECTIVE PHYSICAL EXAMINATION: VITAL SIGNS: Please see below. GEN: AAO x1 person only, no respiratory distress or use of respiratory accessory muscles HEENT: lips acyanotic anicteric mucus membranes moist and pink no JVD CVS: RRR/NMRG/ radial pulses intact / no lower extremity edema nondisplaced PMI LUNGS: AEBE lungs are clear to auscultation bilaterally on room air ABDOMEN: +BS x 4 quadrants no HSM soft & not tender with palpation EXT: no edema LABORATORY DATA, IMAGING STUDIES, MICROBIOLOGY: Please see below. 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 check a1c consistent carbs diet. continue iv abx until sensitivities are finalized. continue all other home meds with holding parameters for sbp<120 for bp med. PT/OT. DVT prophylaxis.encourage early ambulation. PFS consulted to find emergency contact info to ascertain if pt's memory loss is acute or chronic. check MRI brain r/o CVA. VS, I&O, 24H, Fishbone Vital Signs/I&O Vital Signs Date Time Temp Pulse Resp B/P (MAP) Pulse Ox O2 Delivery O2 Flow Rate FiO2 03/01/20 22:00 98.2 98 19 106/49 (68) 100 Room Air I&O- Last 24 Hours up to 6 AM 03/02/20 06:00 Intake Total 275 ml Output Total 450 ml Balance -175 ml Laboratory Data 24H LABS Laboratory Tests 2 03/01/20 07:05: Nucleated Red Blood Cells % (auto) 0.0, Anion Gap 8, Glomerular Filtration Rate 53.2, Calcium Level 9.3, Vitamin B12 Level > 2000H 03/01/20 07:08: Bedside Glucose (Misc Panel) 407H 03/01/20 10:06: Bedside Glucose (Misc Panel) 209H 03/01/20 11:27: Bedside Glucose (Misc Panel) 213H 03/01/20 18:08: Bedside Glucose (Misc Panel) 362H 03/01/20 21:02: Bedside Glucose (Misc Panel) 250H 03/02/20 05:12: Immature Granulocyte % (Auto) 0.1, Neutrophils (%) (Auto) 54.6, Lymphocytes (%) (Auto) 32.5, Monocytes (%) (Auto) 10.3H, Eosinophils (%) (Auto) 1.8, Basophils (%) (Auto) 0.7, Neutrophils # (Auto) 3.9, Lymphocytes # (Auto) 2.3, Monocytes # (Auto) 0.7, Eosinophils # (Auto) 0.1, Basophils # (Auto) 0.1, Nucleated Red Blood Cells % (auto) 0.0, Anion Gap 8, Glomerular Filtration Rate 51.5, Calcium Level 8.9 CBC/BMP Laboratory Tests 03/01/20 07:05 03/02/20 05:12 Microbiology Microbiology 03/01/20 Respiratory Virus Panel (PCR) ([facility]) - Final, Complete 02/29/20 Urine Culture, Received Pending SADI ROSSI MD Mar 02, 2020 07:05
[2020-03-02] MEDS: HumaLOG INSULIN (NovoLOG) PER UNIT SC SCH ×4 (08:08→20:41)
[2020-03-02] MEDS: PANTOPRAZOLE 40MG TAB (PROTONIX) PO SCH (08:08)
[2020-03-02] MEDS: LEVEMIR (INSULIN DETEMIR) 1 UNITS/0.01ML SC SCH ×2 (08:08→20:43)
[2020-03-02] MEDS: ENOXAPARIN 40MG/0.4ML SYRINGE (J1650 PER 10MG) SC SCH (08:09)
[2020-03-02] MEDS: ATORVASTATIN 20 MG TAB PO SCH (08:09)
[2020-03-02] MEDS: LOSARTAN 50MG TABLET PO SCH (08:09)
[2020-03-02] MEDS: COSOPT OCUMETER PLUS 10ML (DORZOLAMIDE/TIMOLOL) OU SCH ×2 (08:09→20:43)
[2020-03-02] MEDS: CLOPIDOGREL 75 MG TAB PO SCH (08:09)
[2020-03-02] MEDS: amLODIPine 5 MG TAB PO SCH (08:09)
--- NOTE | 2020-03-02 11:28 | REP ---
INDICATION: memory loss r/o cva. COMPARISON: Comparison MRI brain exam is from February 14, 2019.. TECHNIQUE: Axial and sagittal imaging planes are utilized for T1 and T2-weighted scans. Sequences include spin-echo, fast spin echo, FLAIR, and diffusion weighted sequences. FINDINGS: No bony calvarial lesion is seen. Craniocervical junction and upper cervical cord are normal in appearance. There is no MR evidence of significant paranasal sinus disease. No intraorbital abnormality is seen. The lateral, third, and fourth ventricles are normal in size and position. Mcfarland-white differentiation pattern is intact above and below the tentorium. There is no evidence of intracranial hemorrhage. No mass, infarction, extra-axial fluid collection or midline shift is seen. No abnormal white matter lesion is seen. There is mild chronic microvascular ischemic change in the periventricular white matter bilaterally unchanged from the comparison study. There is mild generalized volume loss. Diffusion-weighted scans show no evidence to suggest acute ischemia. IMPRESSION: Mild chronic small-vessel changes and generalized volume loss again noted. No change from comparison MRI study February 14, 2019. No acute intracranial abnormality.. <Electronically signed by Ananda Licea > 03/02/20 1125
[2020-03-02 12:29] LABS: HEMOGLOBIN A1c 7.8 %
[2020-03-02 22:00] VITALS: BP 138/77
[2020-03-03] MEDS: LEVOTHYROXINE 100MCG TABLET (0.1MG) PO SCH (05:06)
[2020-03-03] MEDS: LevoFLOXacin 250 MG TABLET PO SCH (05:06)
[2020-03-03 06:00] VITALS: BP 152/82
[2020-03-03 06:09] LABS: BASO # 0.1 10^3/uL (0.0-0.2); BASO % 0.6 % (0.0-1.0); EOS # 0.2 10^3/uL (0.0-0.5); EOS % 1.9 % (0.0-3.0); HEMATOCRIT 34.2 % (36.0-47.0); HEMOGLOBIN 11.3 g/dl (12.0-15.5); LYMPH # 2.5 10^3/uL (1.5-5.0); LYMPH % 32.7 % (24.0-44.0); MEAN CORPUSCULAR HEMOGLOBIN 30.6 pg (27.0-33.0); MEAN CORPUSCULAR VOLUME 92.7 fl (80.0-96.0); MONO # 0.8 10^3/uL (0.0-0.8); MONO % 9.9 % (0.0-5.0); NEUTROPHILS # 4.2 10^3/uL (1.5-8.5); NEUTROPHILS % 54.6 % (36.0-66.0); PLATELET COUNT, AUTOMATED 209 10^3/uL (150-450); RED BLOOD COUNT 3.69 10^6/uL (4.00-5.40); WHITE BLOOD COUNT 7.7 10^3/uL (4.0-10.0)
[2020-03-03 06:25] LABS: CALCIUM LEVEL 8.9 MG/DL (8.8-10.2); GLOMERULAR FILTRATION RATE 56.9 (>39); POTASSIUM SERUM 4.4 MEQ/L (3.5-5.1)
[2020-03-03] MEDS: HumaLOG INSULIN (NovoLOG) PER UNIT SC SCH (07:30)
[2020-03-03] MEDS ORDERED: LEVO250T12 PO (07:30)
[2020-03-03] MEDS ORDERED: ALCO1MED8 XX (07:34)
[2020-03-03] MEDS ORDERED: CARE1KIT XX (07:34)
[2020-03-03] MEDS ORDERED: BD P31MI2 SC (07:34)
[2020-03-03] MEDS ORDERED: INSUDET SC (07:34)
[2020-03-03] MEDS ORDERED: LANCMIS33 TOP (07:34)
--- NOTE | 2020-03-03 07:49 | DS.PDOC ---
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 HOSPITAL COURSE: 79 y/o F w chronic dementia admitted for UTI and given levaquin with urine cx: contaminated , no fever or white count, but developed worsening memory loss, evaluated with MRIBrain-chronic changes, no acute CVA. Pt had uncontrolled glucose, and was started on levemir insulin. NO other medical issues arose, and she is discharged home with home PT, and encouraged to fu with her neurologist for worsening dementia. DISCHARGE MEDICATIONS: Please see below. ALLERGIES: Please see below. PHYSICAL EXAMINATION ON DISCHARGE: VITAL SIGNS: Please see below. GEN: AAO x1 person only, no respiratory distress or use of respiratory accessory muscles HEENT: lips acyanotic anicteric mucus membranes moist and pink no JVD CVS: RRR/NMRG/ radial pulses intact / no lower extremity edema nondisplaced PMI LUNGS: AEBE lungs are clear to auscultation bilaterally on room air ABDOMEN: +BS x 4 quadrants no HSM soft & not tender with palpation EXT: no edema LABORATORY DATA, IMAGING STUDIES, MICROBIOLOGY: Please see below. TIME SPENT ON DISCHARGE: 30 minutes. Vital Signs/I&Os Vital Signs Date Time Temp Pulse Resp B/P (MAP) Pulse Ox O2 Delivery O2 Flow Rate FiO2 03/03/20 06:00 97.7 75 17 152/82 (105) 100 Room Air I&O- Last 24 Hours up to 6 AM 03/03/20 06:00 Intake Total 1300 ml Output Total 0 ml Balance 1300 ml Laboratory Data Labs 24H Laboratory Tests 2 03/02/20 11:25: Bedside Glucose (Misc Panel) 231H 03/02/20 16:35: Bedside Glucose (Misc Panel) 283H 03/02/20 19:52: Bedside Glucose (Misc Panel) 325H 03/03/20 01:11: Bedside Glucose (Misc Panel) 33*L 03/03/20 01:31: Bedside Glucose (Misc Panel) 127H 03/03/20 02:17: Bedside Glucose Confirm (Misc) 118 03/03/20 05:06: Bedside Glucose (Misc Panel) 96 03/03/20 05:36: Immature Granulocyte % (Auto) 0.3, Neutrophils (%) (Auto) 54.6, Lymphocytes (%) (Auto) 32.7, Monocytes (%) (Auto) 9.9H, Eosinophils (%) (Auto) 1.9, Basophils (%) (Auto) 0.6, Neutrophils # (Auto) 4.2, Lymphocytes # (Auto) 2.5, Monocytes # (Auto) 0.8, Eosinophils # (Auto) 0.2, Basophils # (Auto) 0.1, Nucleated Red Blood Cells % (auto) 0.0, Anion Gap 8, Glomerular Filtration Rate 56.9, Calcium Level 8.9 CBC/BMP Laboratory Tests 03/03/20 05:36 FSBS Laboratory Tests Test 03/02/20 11:25 03/02/20 16:35 03/02/20 19:52 03/03/20 01:11 Range/Units Bedside Glucose (Misc Panel) 231 283 325 33 83-110 MG/DL Test 03/03/20 01:31 03/03/20 05:06 Range/Units Bedside Glucose (Misc Panel) 127 96 83-110 MG/DL Microbiology Microbiology 03/01/20 Respiratory Virus Panel (PCR) ([facility]) - Final, Complete 02/29/20 Urine Culture - Final, Complete Discharge Medications Scheduled Acyclovir (Acyclovir) 400 Mg Tablet, 400 MG PO BID, (Reported) Amlodipine Besylate (Amlodipine Besylate) 5 Mg Tablet, 5 MG PO DAILY, (Reported) Atorvastatin Calcium (Atorvastatin Calcium) 20 Mg Tablet, 20 MG PO DAILY, (Reported) Bimatoprost (Lumigan) 0.01% 2.5ML Drops, 1 DROP OU QHS, (Reported) Clopidogrel Bisulfate (Clopidogrel) 75 Mg Tablet, 75 MG PO DAILY, (Reported) Dorzolamide HCl/Timolol Maleat (Dorzolamide-Timolol Eye Drops) 10 Ml Drops, 1 DROP OU BID, (Reported) Insulin Detemir (Levemir) 100 Unit/1 Ml Vial, 10 UNITS SC QHS Insulin Human Lispro (Humalog) 100 Unit/1 Ml Vial, 1 DOSE SC ASDIRECTED, (Reported) VIA INSULIN PUMP Levofloxacin (Levofloxacin) 250 Mg Tablet, 250 MG PO DAILY@06 Levothyroxine Sodium (Synthroid) 100 Mcg Tablet, 100 MCG PO DAILY, (Reported) Losartan Potassium (Losartan Potassium) 100 Mg Tablet, 100 MG PO DAILY, (Report ed) Methazolamide (Methazolamide) 25 Mg Tablet, 25 MG PO DAILY, (Reported) Netarsudil Mesylate (Rhopressa) 2.5 Ml Drops, 1 DOSE OU DAILY, (Reported) Pantoprazole Sodium (Pantoprazole Sodium) 40 Mg Tablet.dr, 40 MG PO DAILY, (Reported) Scheduled PRN Glucagon,Human Recombinant (Glucagon Emergency Kit) 1 Mg Vial, 1 MG IM ASDIRECTED PRN for LOW BLOOD SUGAR, (Reported) Miscellaneous Medications [Patient Comment] , (Reported) PATIENT IS NOT A GOOD HISTORIAN. COMPLETED MED REC VIA EXTERNAL MED HISTORY. Allergies Coded Allergies: Penicillins (Verified Allergy, Unknown, 08/20/18) SADI ROSSI MD Mar 03, 2020 07:49
[2020-03-03] MEDS: amLODIPine 5 MG TAB PO SCH (08:26)
[2020-03-03] MEDS: CLOPIDOGREL 75 MG TAB PO SCH (08:26)
[2020-03-03 08:27] VITALS: BP 152/82
[2020-03-03] MEDS: LOSARTAN 50MG TABLET PO SCH (08:27)
[2020-03-03] MEDS: ATORVASTATIN 20 MG TAB PO SCH (08:27)
[2020-03-03] MEDS: PANTOPRAZOLE 40MG TAB (PROTONIX) PO SCH (08:27)
[2020-03-03] MEDS: ENOXAPARIN 40MG/0.4ML SYRINGE (J1650 PER 10MG) SC SCH (08:29)
[2020-03-03] MEDS ORDERED: LEVEMIR (INSULIN DETEMIR) 1 UNITS/0.01ML SC SCH (09:00)
[2020-03-03] MEDS: COSOPT OCUMETER PLUS 10ML (DORZOLAMIDE/TIMOLOL) OU SCH (09:00)
== END 2020-03-03 10:59 | disposition home health service (06) | DRG 690 ==
LOC: M ED 21:25 → M ED INP 03-01 00:19 → M MS5PR 03-01 02:45
PROVIDERS: ADMIT Internal Medicine; ATTEND General Practice
DX: N39.0 Urinary tract infection, site not specified (principal); G93.40 Encephalopathy, unspecified; F03.90 Unspecified dementia, unspecified severity, without behavioral disturbance, psychotic disturbance, mood disturbance, and anxiety; E03.9 Hypothyroidism, unspecified; E10.319 Type 1 diabetes mellitus with unspecified diabetic retinopathy without macular edema; E10.22 Type 1 diabetes mellitus with diabetic chronic kidney disease; E10.40 Type 1 diabetes mellitus with diabetic neuropathy, unspecified; I12.9 Hypertensive chronic kidney disease with stage 1 through stage 4 chronic kidney disease, or unspecified chronic kidney disease; E10.65 Type 1 diabetes mellitus with hyperglycemia; I25.10 Atherosclerotic heart disease of native coronary artery without angina pectoris; Z66 Do not resuscitate; N18.30 Chronic kidney disease, stage 3 unspecified; R06.89 Other abnormalities of breathing; H40.9 Unspecified glaucoma; E55.9 Vitamin D deficiency, unspecified; F32.9 Major depressive disorder, single episode, unspecified; F41.9 Anxiety disorder, unspecified; Z86.010 Personal history of colon polyps; Z87.891 Personal history of nicotine dependence; Z79.02 Long term (current) use of antithrombotics/antiplatelets; Z79.899 Other long term (current) drug therapy; Z88.0 Allergy status to penicillin

== ENCOUNTER 2020-04-17 21:56 | Inpatient (IN) | payer MEDICARE ==
[~2020-04-17] VITALS: Ht 160 cm; Wt 69.3 kg
[~2020-04-17 21:56] MED LIST changes: +ACYC400T PO; +ALCO1MED8 XX; +BD P31MI2 SC; +CARE1KIT XX; +CITA10TA5 PO; +CLOP75TA2 PO; +DORZ2SOL5 OU; +GLUC1KIT IM; +INSUDET SC; +INSUHUMDS SC; +LANCMIS33 TOP; +LEVO250T12 PO; +NORV5TAB PO; +PATIENT COMMENT; +PLAV1TAB2 PO; +SYNT100T PO; +vitamin D PO
--- NOTE | 2020-04-17 22:29 | REPVR ---
PROCEDURE INFORMATION: Exam: CT Head Without Contrast Exam date and time: 04/17/2020 10:22 PM Age: 79 years old Clinical indication: Altered mental status/memory loss TECHNIQUE: Imaging protocol: Computed tomography of the head without contrast. Radiation optimization: All CT scans at this facility use at least one of these dose optimization techniques: automated exposure control; mA and/or kV adjustment per patient size (includes targeted exams where dose is matched to clinical indication); or iterative reconstruction. COMPARISON: CT Head without contrast 02/29/2020 10:36 PM FINDINGS: Brain: There is minimal patchy low attenuation of deep white matter. There is slight prominence of the peripheral sulci. Cerebral ventricles: There is slight prominence of the central ventricular system. Bones/joints: Unremarkable. No acute fracture. Paranasal sinuses: Visualized sinuses are unremarkable. No fluid levels. Mastoid air cells: Visualized mastoid air cells are well aerated. Soft tissues: Unremarkable. IMPRESSION: Minimal chronic ischemic white matter change and atrophy which is similar to 02/29/2020. No acute interval intracranial process is identified. Electronically signed by: Caio Arevalo On 04/17/2020 22:29:42 PM
[2020-04-17] MEDS ORDERED: NITR0.4S14 SL (22:36)
[2020-04-17] MEDS ORDERED: CITA10TA5 PO (22:36)
[2020-04-17] MEDS ORDERED: DONE10TA90 PO (22:36)
--- NOTE | 2020-04-17 22:47 | REPVR ---
PROCEDURE INFORMATION: Exam: XR Chest, 1 View Exam date and time: 04/17/2020 10:32 PM Age: 79 years old Clinical indication: Other: AMS; Additional info: Altered mental status TECHNIQUE: Imaging protocol: XR of the chest Views: 1 view. COMPARISON: CR Chest, 1 view 03/01/2020 12:34 AM FINDINGS: Lungs: Unremarkable. No consolidation. Pleural space: Unremarkable. No pleural effusion. No pneumothorax. Heart/Mediastinum: Unremarkable. No cardiomegaly. Bones/joints: Unremarkable. IMPRESSION: Negative chest without significant change from 03/01/2020. Electronically signed by: Caio Arevalo On 04/17/2020 22:47:15 PM
[2020-04-17 23:02] LABS: BASO % 0.3 % (0.0-1.0); EOS # 0.3 10^3/uL (0.0-0.5); EOS % 3.1 % (0.0-3.0); HEMATOCRIT 34.2 % (36.0-47.0); LYMPH # 2.1 10^3/uL (1.5-5.0); LYMPH % 24.6 % (24.0-44.0); MEAN CORPUSCULAR HGB CONC 32.2 g/dl (32.0-36.5); MEAN CORPUSCULAR VOLUME 93.2 fl (80.0-96.0); MONO # 0.9 10^3/uL (0.0-0.8); MONO % 10.9 % (0.0-5.0); NEUTROPHILS # 5.3 10^3/uL (1.5-8.5); NEUTROPHILS % 60.9 % (36.0-66.0); PLATELET COUNT, AUTOMATED 218 10^3/uL (150-450); RED BLOOD COUNT 3.67 10^6/uL (4.00-5.40); WHITE BLOOD COUNT 8.7 10^3/uL (4.0-10.0)
[2020-04-17 23:35] LABS: ALBUMIN 3.6 GM/DL (3.2-5.2); ALT/SGPT 18 U/L (12-78); BILIRUBIN,DIRECT 0.2 MG/DL (0.0-0.2); BILIRUBIN,TOTAL 0.8 MG/DL (0.2-1.0); BLOOD UREA NITROGEN 30 MG/DL (7-18); CALCIUM LEVEL 8.7 MG/DL (8.8-10.2); CARBON DIOXIDE LEVEL 24 MEQ/L (21-32); CHLORIDE LEVEL 106 MEQ/L (98-107); CPK CREATINE PHOSPHOKINASE 97 U/L (26-192); CREATININE FOR GFR 1.36 MG/DL (0.55-1.30); GLOMERULAR FILTRATION RATE 39.9 (>39); GLUCOSE, FASTING 320 MG/DL (70-100); MB/CK RELATIVE INDEX 2.06 (< OR =4); SODIUM LEVEL 139 MEQ/L (136-145); THYROID STIMULATING HORMONE 0.593 uIU/ML (0.358-3.740); TOTAL PROTEIN 6.2 GM/DL (6.4-8.2); TROPONIN I < 0.02 NG/ML (< 0.10)
[2020-04-17] MEDS ORDERED: NS 500 ML IV ONE (23:45)
[2020-04-18] MEDS ORDERED: CIPROFLOXACIN 400 MG in IV 1 EA IV ONE (01:00)
[2020-04-18 02:48] LABS: RSV AMPLIFICATION NEGATIVE (NEGATIVE)
--- NOTE | 2020-04-18 03:39 | HPEPDOC ---
General Date of Admission Chief Complaint The patient is a 79-year-old female admitted with a reason for visit of Medical Complaint. Home Medications Scheduled Acyclovir (Acyclovir) 400 Mg Tablet, 400 MG PO BID, (Reported) Amlodipine Besylate (Amlodipine Besylate) 5 Mg Tablet, 5 MG PO DAILY, (Reported) Aspirin (Aspirin EC) 81 Mg Tablet.dr, 81 MG PO DAILY, (Reported) Atorvastatin Calcium (Atorvastatin Calcium) 20 Mg Tablet, 20 MG PO DAILY, (Reported) Bimatoprost (Lumigan) 0.01% 2.5ML Drops, 1 DROP OU QHS, (Reported) Cholecalciferol (Vitamin D3) (Vitamin D3) 125 Mcg Tablet, 125 MCG PO DAILY, (Reported) Citalopram Hydrobromide (Citalopram HBr) 10 Mg Tablet, 10 MG PO DAILY, (Reported) Clopidogrel Bisulfate (Clopidogrel) 75 Mg Tablet, 75 MG PO DAILY, (Reported) Cyanocobalamin (Vitamin B-12) (Vitamin B-12) 1,000 Mcg Capsule, 1,000 MCG PO DAILY, (Reported) Donepezil HCl (Donepezil HCl) 10 Mg Tablet, 10 MG PO DAILY, (Reported) Dorzolamide HCl/Timolol Maleat (Dorzolamide-Timolol Eye Drops) 10 Ml Drops, 1 DROP OU BID, (Reported) Insulin Human Lispro (Humalog) 100 Unit/1 Ml Vial, 1 DOSE SC ASDIRECTED, (Reported) VIA INSULIN PUMP Levothyroxine Sodium (Synthroid) 100 Mcg Tablet, 100 MCG PO DAILY, (Reported) Losartan Potassium (Losartan Potassium) 100 Mg Tablet, 100 MG PO DAILY, (Reported) Magnesium (Magnesium) 250 Mg Tablet, 250 TAB PO QHS, (Reported) Methazolamide (Methazolamide) 25 Mg Tablet, 25 MG PO BID, (Reported) Netarsudil Mesylate (Rhopressa) 2.5 Ml Drops, 1 DROP OU QAM, (Reported) Nitroglycerin (Nitroglycerin) 0.4 Mg Tab.subl, 0.4 MG SL NITRO, (Reported) [place]-3 Fatty Acids/Fish Oil (Fish Oil 1,000 mg Capsule) 1 Each Capsule, 1,000 MG PO QHS, (Reported) Pantoprazole Sodium (Pantoprazole Sodium) 40 Mg Tablet.dr, 40 MG PO DAILY, (Reported) Scheduled PRN Glucagon,Human Recombinant (Glucagon Emergency Kit) 1 Mg Vial, 1 MG IM ASDIRECTED PRN for LOW BLOOD SUGAR, (Reported) Miscellaneous Medications [Patient Comment] , (Reported) PATIENT IS NOT A GOOD HISTORIAN. COMPLETED MED REC VIA EXTERNAL MED HISTORY. Allergies Coded Allergies: Penicillins (Verified Allergy, Unknown, 08/20/18) Vital Signs Vital Signs Date Time Temp Pulse Resp B/P (MAP) Pulse Ox O2 Delivery O2 Flow Rate FiO2 04/18/20 03:00 100 137/55 (82) 98 04/17/20 22:29 96.6 26 Room Air Laboratory Data Labs 24H Laboratory Tests 2 04/17/20 22:39: Immature Granulocyte % (Auto) 0.2, Neutrophils (%) (Auto) 60.9, Lymphocytes (%) (Auto) 24.6, Monocytes (%) (Auto) 10.9H, Eosinophils (%) (Auto) 3.1H, Basophils (%) (Auto) 0.3, Neutrophils # (Auto) 5.3, Lymphocytes # (Auto) 2.1, Monocytes # (Auto) 0.9H, Eosinophils # (Auto) 0.3, Basophils # (Auto) 0.0, Nucleated Red Blood Cells % (auto) 0.0, Anion Gap 9, Glomerular Filtration Rate 39.9, Calcium Level 8.7L, Total Bilirubin 0.8, Direct Bilirubin 0.2, Aspartate Amino Transf (AST/SGOT) 16, Alanine Aminotransferase (ALT/SGPT) 18, Alkaline Phosphatase 72, Total Creatine Kinase 97, Creatine Kinase MB 2.0, Creatine Kinase MB Relative Index 2.06, Troponin I < 0.02, Total Protein 6.2L, Albumin 3.6, Albumin/Globulin Ratio 1.4, Thyroid Stimulating Hormone (TSH) 0.593 04/18/20 00:01: Urine Color YELLOW, Urine Appearance HAZY, Urine pH 5.0, Urine Specific [place] 1.021, Urine Protein NEGATIVE, Urine Glucose (UA) 3+H, Urine Ketones 1+H, Urine Blood NEGATIVE, Urine Nitrite NEGATIVE, Urine Bilirubin NEGATIVE, Urine Urobilinogen 2.0H, Urine Leukocyte Esterase 3+H, Urine WBC (Auto) 50H, Urine RBC (Auto) 4H, Urine Hyaline Casts (Auto) 4, Urine Bacteria (Auto) NEGATIVE, Urine Squamous Epithelial Cells 1, Urine Mucus (Auto) SMALL, Urine Sperm (Auto) 04/18/20 01:35: Coronavirus (COVID-19)(PCR) NEGATIVE, Influenza Type A (RT-PCR) NEGATIVE, Influenza Type B (RT-PCR) NEGATIVE, Respiratory Syncytial Virus (PCR) NEGATIVE CBC/BMP Laboratory Tests 04/17/20 22:39 Microbiology Microbiology 04/18/20 Blood Culture, Received Pending 04/18/20 Blood Culture, Received Pending 04/18/20 Urine Culture, Received Pending Problems (1) UTI (urinary tract infection) Status: Acute (2) Altered mental status Status: Acute (3) Dementia Status: Chronic (4) Type 1 diabetes (5) HTN (hypertension) Status: Chronic Chaparro Boland MD Apr 18, 2020 03:38
[2020-04-18] MEDS ORDERED: DEXTROSE 50% 50 ML SYRINGE IV PRN (04:00)
[2020-04-18] MEDS ORDERED: GLUCOSE 4GM CHEW TABLET PO PRN (04:00)
[2020-04-18] MEDS ORDERED: GLUCAGON INJ 1MG VIAL SC PRN (04:00)
[2020-04-18] MEDS ORDERED: ASPI-161 PO (04:19)
[2020-04-18] MEDS ORDERED: B-12100010 PO (04:23)
[2020-04-18] MEDS ORDERED: D-50TAB PO (04:23)
[2020-04-18] MEDS ORDERED: FISH1000 PO (04:23)
[2020-04-18] MEDS ORDERED: RA N1TAB PO (04:23)
[2020-04-18 05:10] VITALS: BP 136/76
--- NOTE | 2020-04-18 05:40 | ECGEPIP ---
[facility] - ED Test Date: 2020-04-17 Pat Name: ANNA HERZOG Department: Room: - Gender: Female Curriculum And Assessment Director: josy : 1940 Requested By: NICOLE RIOJAS Order Number: [id number] Reading MD: Neri Schaefer Measurements Intervals [place] Rate: 86 P: 27 ID: [id number] QRS: -26 QRSD: 99 T: 79 QT: 399 QTc: 479 Interpretive Statements SINUS RHYTHM POOR R WAVE PROGRESSION NSTTW ABNORMALITY(S) BASELINE ARTIFACT AFFECTS INTERPRETATION Electronically Signed on 04-18-2020 5:40:29 EST by Neri Schaefer
[2020-04-18 08:20] VITALS: BP 104/38
[2020-04-18] MEDS ORDERED: CitaloPRAM (CeleXA) 10 MG TABLET PO SCH (09:00)
[2020-04-18] MEDS: HumaLOG INSULIN (NovoLOG) PER UNIT SC SCH ×4 (10:11→20:37)
[2020-04-18] MEDS: CLOPIDOGREL 75 MG TAB PO SCH (10:12)
[2020-04-18] MEDS: ATORVASTATIN 20 MG TAB PO SCH (10:12)
[2020-04-18] MEDS: PANTOPRAZOLE 40MG TAB (PROTONIX) PO SCH (10:12)
[2020-04-18] MEDS: ENOXAPARIN 40MG/0.4ML SYRINGE (J1650 PER 10MG) SC SCH (10:12)
[2020-04-18] MEDS: LEVOTHYROXINE 100MCG TABLET (0.1MG) PO SCH (10:16)
[2020-04-18] MEDS ORDERED: ONDANSETRON 4MG/2ML VIAL IV PRN (10:30)
[2020-04-18 11:57] LABS: CALCIUM LEVEL 9.7 MG/DL (8.8-10.2); CREATININE FOR GFR 1.73 MG/DL (0.55-1.30); GLOMERULAR FILTRATION RATE 30.2 (>39); POTASSIUM SERUM 5.3 MEQ/L (3.5-5.1)
[2020-04-18] MEDS ORDERED: LEVEMIR (INSULIN DETEMIR) 1 UNITS/0.01ML SC SCH (12:45)
--- NOTE | 2020-04-18 12:53 | IPNPDOC ---
Text Note Date of Service The patient was seen on 04/18/20. NOTE Patient was seen and examined this morning. She is a pleasant 79-year-old female complaining of mild nausea but no overnight events. PHYSICAL EXAMINATION: General: The patient is awake, alert, and person but not time and place, sitting up in the the chair with no apparent distress. Head and Neck Exam: Extraocular muscles intact. Pupils equally round and reactive to light. Mucous membranes are moist. Neck is supple. There is no jugular venous distention (JVD). Cardiovascular: S1 and S2, regular rate. Trace edema of the bilateral lower extremities. Respiratory: Clear on auscultation bilaterally Abdomen: Soft. Positive bowel sounds. Nontender. No organomegaly. Genitourinary: Deferred Musculoskeletal: Clubbing of the fingernails, no cyanosis was noted. Central Nervous System (PROGRAM SUPPORT CLERK): No focal deficit. Power is 5/5 in all extremities. Labs reviewed Radiology reviewed Assessment and plan This is a 79-year-old female who has been admitted to the hospital because of continuous decline in cognition. As per the to the extent where she has been forgetting more and more things and has been seeing objects which is not actually there. The patient has been diagnosed with dementia and over the last 4 months. As per the , there has been a constant and is declined. The patient was admitted in February for UTI and at that time, as per the , the patient's mental state was really declined. The patient was treated with antibiotics but no cultures were positive at that time as well. This time the patient has been hallucinating more forgetting things more and the has not been able to take care of her. She was found to be hyperglycemic in mild AK I and admitted to the hospital for further care. (1) UTI (urinary tract infection): The patient is not been able to provide a lot of information. No suprapubic tenderness. The patient is on Cipro which will be staying to IV Rocephin today. Urine cultures have been sent. UA does look dirty. (2) Altered mental status: Metabolic causes, we'll be ruled out. The patient currently is hyperglycemic and for that. We are appropriately covering her with insulin. For her AK I the fluids have been started. For UTI, antibiotics have been started. Will rule out any other obvious causes of alteration in mental status. TSH, vitamin B12 levels will be done. We'll admit is the initial cause. (3) Dementia: Seems like this has been progressive. We will address the acute issues first. PFS documentation consultant PT, OT consult has been ordered. (4) Type 1 diabetes, uncontrolled hyperglycemia: Sliding scale insulin and Levemir 7 twice a day with one dose of 5 of Levemir. The patient has been having uncontrolled blood sugars. We will continue to monitor and adjust insulin according to 24-hour requirement. A1c will be done and the patient will be kept on consistent carb diet. (5) HTN (hypertension): Continue home medication not contraindicated (6) AK I: Mild, likely secondary to dehydration because of hyperglycemia. We'll continue normal saline 100 mL per hour. Avoid any nephrotoxic drugs. DVT and GI prophylaxis PT, OT consult PFS documentation consultant As per discussion with the . He is okay with her getting placed as it has been getting very difficult for him to manage. VS,Fishbone, I+O VS, Fishbone, I+O Laboratory Tests 04/17/20 22:39 04/18/20 10:55 Vital Signs Date Time Temp Pulse Resp B/P (MAP) Pulse Ox O2 Delivery O2 Flow Rate FiO2 04/18/20 08:20 98.1 90 19 104/38 (60) 99 Room Air I&O- Last 24 Hours up to 6 AM 04/18/20 06:00 Intake Total 700 ml Output Total 0 ml Balance 700 ml RAHEEL GODOY MD Apr 18, 2020 12:53
[2020-04-18] MEDS: NS 1,000 ML IV SCH (13:04)
[2020-04-18 14:00] VITALS: BP 106/41
[2020-04-18 15:26] LABS: CALCIUM LEVEL 8.9 MG/DL (8.8-10.2); CREATININE FOR GFR 2.12 MG/DL (0.55-1.30); GLOMERULAR FILTRATION RATE 23.9 (>39); POTASSIUM SERUM 4.6 MEQ/L (3.5-5.1)
[2020-04-18] MEDS: CIPROFLOXACIN 400 MG in IV 1 EA IV SCH (20:37)
[2020-04-18] MEDS: LEVEMIR (INSULIN DETEMIR) 1 UNITS/0.01ML SC SCH (20:38)
[2020-04-18 22:00] VITALS: BP 103/44
[2020-04-19] MEDS: NS 1,000 ML IV SCH ×3 (00:11→22:10)
[2020-04-19] MEDS: LEVOTHYROXINE 100MCG TABLET (0.1MG) PO SCH (05:33)
[2020-04-19 06:00] VITALS: BP 104/46
[2020-04-19 07:09] LABS: HEMATOCRIT 31.1 % (36.0-47.0); HEMOGLOBIN 9.8 g/dl (12.0-15.5); MEAN CORPUSCULAR HEMOGLOBIN 30.2 pg (27.0-33.0); MEAN CORPUSCULAR HGB CONC 31.5 g/dl (32.0-36.5); PLATELET COUNT, AUTOMATED 193 10^3/uL (150-450); RED BLOOD COUNT 3.24 10^6/uL (4.00-5.40); WHITE BLOOD COUNT 15.3 10^3/uL (4.0-10.0)
[2020-04-19 07:31] LABS: CALCIUM LEVEL 9.2 MG/DL (8.8-10.2); CREATININE FOR GFR 1.92 MG/DL (0.55-1.30); GLOMERULAR FILTRATION RATE 26.8 (>39)
[2020-04-19] MEDS: PANTOPRAZOLE 40MG TAB (PROTONIX) PO SCH (08:09)
[2020-04-19] MEDS: ATORVASTATIN 20 MG TAB PO SCH (08:09)
[2020-04-19] MEDS: CLOPIDOGREL 75 MG TAB PO SCH (08:09)
[2020-04-19] MEDS: ACETAMINOPHEN TAB 650MG DOSE (2X325MG) PO PRN (08:11)
[2020-04-19] MEDS: ENOXAPARIN 40MG/0.4ML SYRINGE (J1650 PER 10MG) SC SCH (08:12)
[2020-04-19] MEDS: amLODIPine 5 MG TAB PO SCH (08:12)
[2020-04-19] MEDS: HumaLOG INSULIN (NovoLOG) PER UNIT SC SCH ×4 (08:13→21:00)
[2020-04-19] MEDS: LEVEMIR (INSULIN DETEMIR) 1 UNITS/0.01ML SC SCH ×2 (08:13→22:07)
[2020-04-19 14:00] VITALS: BP 123/51
--- NOTE | 2020-04-19 14:37 | IPNPDOC ---
Text Note Date of Service The patient was seen on 04/19/20. NOTE Patient was seen and examined this morning. She is a pleasant 79-year-old female complaining of mild nausea but no overnight events. PHYSICAL EXAMINATION: General: The patient is awake, alert, and person but not time and place, sitting up in the the chair with no apparent distress. Head and Neck Exam: Extraocular muscles intact. Pupils equally round and reactive to light. Mucous membranes are moist. Neck is supple. There is no jugular venous distention (JVD). Cardiovascular: S1 and S2, regular rate. Trace edema of the bilateral lower extremities. Respiratory: Clear on auscultation bilaterally Abdomen: Soft. Positive bowel sounds. Nontender. No organomegaly. Genitourinary: Deferred Musculoskeletal: Clubbing of the fingernails, no cyanosis was noted. Central Nervous System (TIRE DEBEADER): No focal deficit. Power is 5/5 in all extremities. Labs reviewed Radiology reviewed Assessment and plan This is a 79-year-old female who has been admitted to the hospital because of continuous decline in cognition. As per the to the extent where she has been forgetting more and more things and has been seeing objects which is not actually there. The patient has been diagnosed with dementia and over the last 4 months. As per the , there has been a constant and is declined. The patient was admitted in February for UTI and at that time, as per the , the patient's mental state was really declined. The patient was treated with antibiotics but no cultures were positive at that time as well. This time the patient has been hallucinating more forgetting things more and the has not been able to take care of her. She was found to be hyperglycemic in mild AK I and admitted to the hospital for further care. She has been started on long-ac ting insulin after calculating to 24-hour insulin requirement, and currently is on Levemir 10 twice a day. He is on sliding scale insulin. She is slightly on the Dyazide and for that reason, she is continued on IV fluids as well. Her AK's improving. He did, after detailed discussion with the family it has been finalized that she will require a long-term care and social workers and disease case manager are working on that. (1) UTI (urinary tract infection): Cultures negative. IV Cipro day 3. The patien t is not been able to provide a lot of information. No suprapubic tenderness. (2) Altered mental status: Metabolic causes, we'll be ruled out. The patient currently is hyperglycemic and for that. We are appropriately covering her with insulin. For her AK I the fluids have been started. For UTI, antibiotics have been started. Will rule out any other obvious causes of alteration in mental status. (3) Dementia: Seems like this has been progressive. We will address the acute issues first. PFS senior financial consultant PT, OT consult has been ordered. (4) Type 1 diabetes, uncontrolled hyperglycemia: Sliding scale insulin and Levemir 10 twice a day The patient has been having uncontrolled blood sugars. We will continue to monitor and adjust insulin according to 24-hour requirement. A1c will be done and the patient will be kept on consistent carb diet. (5) HTN (hypertension): Continue home medication not contraindicated (6) AK I: Mild, likely secondary to dehydration because of hyperglycemia. We'll continue normal saline 100 mL per hour. Avoid any nephrotoxic drugs. DVT and GI prophylaxis PT, OT consult PFS senior financial consultant As per discussion with the . He is okay with her getting placed as it has been getting very difficult for him to manage. VS,Fishbone, I+O VS, Fishbone, I+O Laboratory Tests 04/18/20 14:44 04/19/20 06:47 Vital Signs Date Time Temp Pulse Resp B/P (MAP) Pulse Ox O2 Delivery O2 Flow Rate FiO2 04/19/20 08:12 78 115/47 04/19/20 06:00 96.2 18 90 Room Air I&O- Last 24 Hours up to 6 AM 04/19/20 06:00 Intake Total 2970 ml Output Total 550 ml Balance 2420 ml RAHEEL GODOY MD Apr 19, 2020 14:37
[2020-04-19 22:00] VITALS: BP 124/51
[2020-04-19] MEDS: CIPROFLOXACIN 400 MG in IV 1 EA IV SCH (22:07)
[2020-04-20] MEDS: LEVOTHYROXINE 100MCG TABLET (0.1MG) PO SCH (06:10)
[2020-04-20 07:13] LABS: ALBUMIN 2.9 GM/DL (3.2-5.2); CALCIUM LEVEL 8.5 MG/DL (8.8-10.2); CREATININE FOR GFR 1.11 MG/DL (0.55-1.30); GLOMERULAR FILTRATION RATE 50.5 (>39); POTASSIUM SERUM 4.7 MEQ/L (3.5-5.1); TOTAL PROTEIN 5.2 GM/DL (6.4-8.2)
[2020-04-20] MEDS: NS 1,000 ML IV SCH ×2 (08:10→17:51)
[2020-04-20 08:13] LABS: HEMATOCRIT 31.7 % (36.0-47.0); MEAN CORPUSCULAR HEMOGLOBIN 29.8 pg (27.0-33.0); MEAN CORPUSCULAR HGB CONC 31.5 g/dl (32.0-36.5); MEAN CORPUSCULAR VOLUME 94.3 fl (80.0-96.0); PLATELET COUNT, AUTOMATED 166 10^3/uL (150-450); RED BLOOD COUNT 3.36 10^6/uL (4.00-5.40); WHITE BLOOD COUNT 10.9 10^3/uL (4.0-10.0)
[2020-04-20] MEDS: amLODIPine 5 MG TAB PO SCH (08:13)
[2020-04-20] MEDS: CLOPIDOGREL 75 MG TAB PO SCH (08:13)
[2020-04-20] MEDS: ATORVASTATIN 20 MG TAB PO SCH (08:13)
[2020-04-20] MEDS: ENOXAPARIN 40MG/0.4ML SYRINGE (J1650 PER 10MG) SC SCH (08:13)
[2020-04-20] MEDS: PANTOPRAZOLE 40MG TAB (PROTONIX) PO SCH (08:13)
[2020-04-20] MEDS: HumaLOG INSULIN (NovoLOG) PER UNIT SC SCH ×4 (08:14→21:00)
[2020-04-20] MEDS: LEVEMIR (INSULIN DETEMIR) 1 UNITS/0.01ML SC SCH ×2 (08:14→21:21)
--- NOTE | 2020-04-20 13:17 | IPNPDOC ---
Text Note Date of Service The patient was seen on 04/20/20. NOTE Subjective: Patient was seen and examined at bedside this morning. Patient tells me she's feeling well with no complaints. Nurse endorses no overnight acute events. Patient denies any shortness of breath or chest pain. Objective: Constitutional: Awake and alert, in no apparent distress ENT: Sclera are clear. Mucosa is moist. Respiratory: Lungs CTA bilaterally. No respiratory distress. No use of accessory muscles. Cardiovascular: RRR S1 and S2 are normal Gastrointestinal: Abdomen is soft, non distended, non tender, BS present. Musculoskeletal: No edema. No joint deformities. RUE 5/5, LUE 5/5, BLE 5/5 Neurologic: No focal neurological deficit. Mental Status: A&O x3, normal affect Skin: Warm, dry, clubbing of fingernails Assessment/plan: This is a 79-year-old female who has been admitted to the hospital because of continuous decline in cognition. As per the to the extent where she has been forgetting more and more things and has been seeing objects which is not actually there. The patient has been diagnosed with dementia and over the last 4 months. As per the , there has been a constant and is declined. The patient was admitted in February for UTI and at that time, as per the , the patient's mental state was really declined. The patient was treated with antibiotics but no cultures were positive at that time as well. This time the patient has been hallucinating more forgetting things more and the has not been able to take care of her. She was found to be hyperglycemic in mild ALONDRA and admitted to the hospital for further care. She has been started on long- acting insulin after calculating to 24-hour insulin requirement, and currently is on Levemir 10 twice a day. He is on sliding scale insulin. Her ALONDRA resolved w ith IVFs. After discussion with patient and family social workers will assist with placing patient in [facility]. #UTI: Completed 2 days of Cipro. UCx was contaminated. 1 dose Fosfomycin. No suprapubic tenderness or dysuria. #ALONDRA: resolved with IVFs. Monitor and avoid nephrotoxins #Acute encephalopathy: Now resolved. Perhaps due to hyperglycemic state upon admission as well as UTI. Appears to be back to baseline dementia. #Dementia: PT/OT consulted. He consulted to arrange for [facility]. This has been progressive for some time now. #Type 1 diabetes: Levemir 10 units twice a day.ISS. Hypoglycemic precautions. # Hypertension: Continue home meds. Monitor and titrate # Hypothyroidism: resume Synthroid. # DVT prophylaxis: Lovenox Dispo: PFS for [facility] Hospitalist VSDanika, I+O VS, Danika, I+O Laboratory Tests 04/20/20 05:40 04/20/20 05:43 Vital Signs Date Time Temp Pulse Resp B/P (MAP) Pulse Ox O2 Delivery O2 Flow Rate FiO2 04/20/20 08:13 86 154/64 04/19/20 22:00 98.3 19 92 Room Air I&O- Last 24 Hours up to 6 AM 04/20/20 06:00 Intake Total 4230 ml Output Total 1100 ml Balance 3130 ml JEAN CARY MD Apr 20, 2020 13:17
[2020-04-20 14:00] VITALS: BP 138/63
[2020-04-20] MEDS ORDERED: FOSFOMYCIN TROMETHAMINE 3 GM POWDER PACKET (MONUROL) PO ONE (15:00)
[2020-04-20 22:40] VITALS: BP 149/81
[2020-04-21] MEDS: NS 1,000 ML IV SCH ×3 (02:03→21:36)
[2020-04-21] MEDS: LEVOTHYROXINE 100MCG TABLET (0.1MG) PO SCH (05:46)
[2020-04-21 06:00] VITALS: BP 156/80
[2020-04-21] MEDS: HumaLOG INSULIN (NovoLOG) PER UNIT SC SCH ×4 (07:30→21:00)
[2020-04-21 07:49] LABS: HEMATOCRIT 34.9 % (36.0-47.0); HEMOGLOBIN 11.1 g/dl (12.0-15.5); MEAN CORPUSCULAR HEMOGLOBIN 29.8 pg (27.0-33.0); MEAN CORPUSCULAR HGB CONC 31.8 g/dl (32.0-36.5); MEAN CORPUSCULAR VOLUME 93.8 fl (80.0-96.0); PLATELET COUNT, AUTOMATED 181 10^3/uL (150-450); RED BLOOD COUNT 3.72 10^6/uL (4.00-5.40); WHITE BLOOD COUNT 8.1 10^3/uL (4.0-10.0)
[2020-04-21 08:24] LABS: ALBUMIN 2.9 GM/DL (3.2-5.2); ALT/SGPT 23 U/L (12-78); BILIRUBIN,TOTAL 1.1 MG/DL (0.2-1.0); BLOOD UREA NITROGEN 13 MG/DL (7-18); CALCIUM LEVEL 8.8 MG/DL (8.8-10.2); CARBON DIOXIDE LEVEL 26 MEQ/L (21-32); CHLORIDE LEVEL 111 MEQ/L (98-107); CREATININE FOR GFR 0.79 MG/DL (0.55-1.30); GLOMERULAR FILTRATION RATE > 60.0 (>39); GLUCOSE, FASTING 105 MG/DL (70-100); POTASSIUM SERUM 3.9 MEQ/L (3.5-5.1); SODIUM LEVEL 143 MEQ/L (136-145); TOTAL PROTEIN 6.2 GM/DL (6.4-8.2)
[2020-04-21] MEDS: ENOXAPARIN 40MG/0.4ML SYRINGE (J1650 PER 10MG) SC SCH (10:06)
[2020-04-21] MEDS: LEVEMIR (INSULIN DETEMIR) 1 UNITS/0.01ML SC SCH ×2 (10:08→21:35)
[2020-04-21] MEDS: ATORVASTATIN 20 MG TAB PO SCH (10:09)
[2020-04-21] MEDS: PANTOPRAZOLE 40MG TAB (PROTONIX) PO SCH (10:09)
[2020-04-21] MEDS: amLODIPine 5 MG TAB PO SCH (10:09)
[2020-04-21] MEDS: CLOPIDOGREL 75 MG TAB PO SCH (10:09)
[2020-04-21] MEDS: ACETAMINOPHEN TAB 650MG DOSE (2X325MG) PO PRN (21:35)
[2020-04-21 22:00] VITALS: BP 122/63
[2020-04-22 06:00] VITALS: BP 148/75
[2020-04-22] MEDS: ACETAMINOPHEN TAB 650MG DOSE (2X325MG) PO PRN (06:14)
[2020-04-22] MEDS: LEVOTHYROXINE 100MCG TABLET (0.1MG) PO SCH (06:16)
[2020-04-22 07:28] LABS: ALBUMIN 2.4 GM/DL (3.2-5.2); ALT/SGPT 19 U/L (12-78); BILIRUBIN,TOTAL 0.7 MG/DL (0.2-1.0); BLOOD UREA NITROGEN 12 MG/DL (7-18); CALCIUM LEVEL 8.3 MG/DL (8.8-10.2); CARBON DIOXIDE LEVEL 27 MEQ/L (21-32); CHLORIDE LEVEL 113 MEQ/L (98-107); CREATININE FOR GFR 0.74 MG/DL (0.55-1.30); GLOMERULAR FILTRATION RATE > 60.0 (>39); GLUCOSE, FASTING 88 MG/DL (70-100); SODIUM LEVEL 145 MEQ/L (136-145); TOTAL PROTEIN 4.9 GM/DL (6.4-8.2)
[2020-04-22] MEDS: HumaLOG INSULIN (NovoLOG) PER UNIT SC SCH ×4 (07:30→20:48)
[2020-04-22] MEDS: NS 1,000 ML IV SCH ×2 (07:36→18:10)
[2020-04-22] MEDS: amLODIPine 5 MG TAB PO SCH (10:56)
[2020-04-22] MEDS: ENOXAPARIN 40MG/0.4ML SYRINGE (J1650 PER 10MG) SC SCH (10:57)
[2020-04-22] MEDS: ATORVASTATIN 20 MG TAB PO SCH (10:57)
[2020-04-22] MEDS: CLOPIDOGREL 75 MG TAB PO SCH (10:57)
[2020-04-22] MEDS: PANTOPRAZOLE 40MG TAB (PROTONIX) PO SCH (10:57)
[2020-04-22] MEDS: LEVEMIR (INSULIN DETEMIR) 1 UNITS/0.01ML SC SCH ×2 (10:58→20:49)
[2020-04-22 14:00] VITALS: BP 146/70
[2020-04-22 22:00] VITALS: BP 144/72
[2020-04-23] MEDS: NS 1,000 ML IV SCH (04:20)
[2020-04-23 05:54] VITALS: BP 169/77
[2020-04-23] MEDS: LEVOTHYROXINE 100MCG TABLET (0.1MG) PO SCH (06:36)
[2020-04-23] MEDS: HumaLOG INSULIN (NovoLOG) PER UNIT SC SCH ×4 (07:30→20:43)
[2020-04-23] MEDS: LEVEMIR (INSULIN DETEMIR) 1 UNITS/0.01ML SC SCH ×2 (09:00→20:57)
[2020-04-23] MEDS: ATORVASTATIN 20 MG TAB PO SCH (09:50)
[2020-04-23] MEDS: CLOPIDOGREL 75 MG TAB PO SCH (09:50)
[2020-04-23] MEDS: PANTOPRAZOLE 40MG TAB (PROTONIX) PO SCH (09:50)
[2020-04-23] MEDS: ENOXAPARIN 40MG/0.4ML SYRINGE (J1650 PER 10MG) SC SCH (09:50)
[2020-04-23] MEDS: amLODIPine 5 MG TAB PO SCH (09:51)
[2020-04-24 06:00] VITALS: BP 152/70
[2020-04-24] MEDS: LEVOTHYROXINE 100MCG TABLET (0.1MG) PO SCH (06:02)
[2020-04-24] MEDS: HumaLOG INSULIN (NovoLOG) PER UNIT SC SCH ×4 (07:30→20:26)
[2020-04-24] MEDS: PANTOPRAZOLE 40MG TAB (PROTONIX) PO SCH (09:24)
[2020-04-24] MEDS: ATORVASTATIN 20 MG TAB PO SCH (09:24)
[2020-04-24] MEDS: CLOPIDOGREL 75 MG TAB PO SCH (09:24)
[2020-04-24] MEDS: amLODIPine 5 MG TAB PO SCH (09:25)
[2020-04-24] MEDS: ENOXAPARIN 40MG/0.4ML SYRINGE (J1650 PER 10MG) SC SCH (09:25)
[2020-04-25 06:00] VITALS: BP 158/70
[2020-04-25] MEDS: LEVOTHYROXINE 100MCG TABLET (0.1MG) PO SCH (06:36)
[2020-04-25] MEDS: ENOXAPARIN 40MG/0.4ML SYRINGE (J1650 PER 10MG) SC SCH (08:07)
[2020-04-25] MEDS: amLODIPine 5 MG TAB PO SCH (08:08)
[2020-04-25] MEDS: ATORVASTATIN 20 MG TAB PO SCH (08:08)
[2020-04-25] MEDS: HumaLOG INSULIN (NovoLOG) PER UNIT SC SCH ×4 (08:08→21:00)
[2020-04-25] MEDS: CLOPIDOGREL 75 MG TAB PO SCH (08:08)
[2020-04-25] MEDS: PANTOPRAZOLE 40MG TAB (PROTONIX) PO SCH (08:08)
[2020-04-26] MEDS: LEVOTHYROXINE 100MCG TABLET (0.1MG) PO SCH (05:29)
[2020-04-26 06:00] VITALS: BP 159/71
[2020-04-26] MEDS: HumaLOG INSULIN (NovoLOG) PER UNIT SC SCH ×4 (07:30→20:53)
[2020-04-26] MEDS: CLOPIDOGREL 75 MG TAB PO SCH (08:34)
[2020-04-26] MEDS: ATORVASTATIN 20 MG TAB PO SCH (08:34)
[2020-04-26] MEDS: PANTOPRAZOLE 40MG TAB (PROTONIX) PO SCH (08:34)
[2020-04-26] MEDS: ENOXAPARIN 40MG/0.4ML SYRINGE (J1650 PER 10MG) SC SCH (08:36)
[2020-04-26] MEDS: amLODIPine 5 MG TAB PO SCH (08:36)
[2020-04-26] MEDS: SENNA 8.6 MG TAB (SENOKOT) PO SCH ×2 (10:53→20:50)
[2020-04-26] MEDS: LEVEMIR (INSULIN DETEMIR) 1 UNITS/0.01ML SC SCH (20:51)
[2020-04-27] MEDS: LEVOTHYROXINE 100MCG TABLET (0.1MG) PO SCH (05:47)
[2020-04-27 06:00] VITALS: BP 129/59
[2020-04-27] MEDS: HumaLOG INSULIN (NovoLOG) PER UNIT SC SCH ×4 (07:30→21:15)
[2020-04-27] MEDS: amLODIPine 5 MG TAB PO SCH (08:18)
[2020-04-27] MEDS: PANTOPRAZOLE 40MG TAB (PROTONIX) PO SCH (08:18)
[2020-04-27] MEDS: CLOPIDOGREL 75 MG TAB PO SCH (08:18)
[2020-04-27] MEDS: ATORVASTATIN 20 MG TAB PO SCH (08:18)
[2020-04-27] MEDS: ENOXAPARIN 40MG/0.4ML SYRINGE (J1650 PER 10MG) SC SCH (08:18)
[2020-04-27] MEDS: SENNA 8.6 MG TAB (SENOKOT) PO SCH ×2 (08:18→21:13)
[2020-04-27] MEDS: LEVEMIR (INSULIN DETEMIR) 1 UNITS/0.01ML SC SCH (21:14)
[2020-04-28] MEDS: LEVOTHYROXINE 100MCG TABLET (0.1MG) PO SCH (05:48)
[2020-04-28 06:00] VITALS: BP 161/68
[2020-04-28] MEDS: ENOXAPARIN 40MG/0.4ML SYRINGE (J1650 PER 10MG) SC SCH (08:10)
[2020-04-28] MEDS: amLODIPine 5 MG TAB PO SCH (08:10)
[2020-04-28] MEDS: CLOPIDOGREL 75 MG TAB PO SCH (08:11)
[2020-04-28] MEDS: SENNA 8.6 MG TAB (SENOKOT) PO SCH ×3 (08:11→20:12)
[2020-04-28] MEDS: ATORVASTATIN 20 MG TAB PO SCH (08:11)
[2020-04-28] MEDS: PANTOPRAZOLE 40MG TAB (PROTONIX) PO SCH (08:11)
[2020-04-28] MEDS: HumaLOG INSULIN (NovoLOG) PER UNIT SC SCH ×4 (08:11→20:10)
[2020-04-28] MEDS: LEVEMIR (INSULIN DETEMIR) 1 UNITS/0.01ML SC SCH (20:09)
[2020-04-28 22:00] VITALS: BP 126/55
[2020-04-29] MEDS: LEVOTHYROXINE 100MCG TABLET (0.1MG) PO SCH (05:40)
[2020-04-29 06:00] VITALS: BP 128/40
[2020-04-29] MEDS: HumaLOG INSULIN (NovoLOG) PER UNIT SC SCH ×4 (07:30→20:43)
[2020-04-29] MEDS: ENOXAPARIN 40MG/0.4ML SYRINGE (J1650 PER 10MG) SC SCH (08:03)
[2020-04-29] MEDS: PANTOPRAZOLE 40MG TAB (PROTONIX) PO SCH (08:04)
[2020-04-29] MEDS: amLODIPine 5 MG TAB PO SCH (08:04)
[2020-04-29] MEDS: ATORVASTATIN 20 MG TAB PO SCH (08:04)
[2020-04-29] MEDS: SENNA 8.6 MG TAB (SENOKOT) PO SCH ×2 (08:04→20:49)
[2020-04-29] MEDS: CLOPIDOGREL 75 MG TAB PO SCH (08:04)
[2020-04-29] MEDS: LEVEMIR (INSULIN DETEMIR) 1 UNITS/0.01ML SC SCH (20:49)
[2020-04-30] MEDS: LEVOTHYROXINE 100MCG TABLET (0.1MG) PO SCH (05:48)
[2020-04-30 06:00] VITALS: BP 144/68
[2020-04-30] MEDS: HumaLOG INSULIN (NovoLOG) PER UNIT SC SCH ×4 (09:20→20:54)
[2020-04-30] MEDS: ATORVASTATIN 20 MG TAB PO SCH (09:20)
[2020-04-30] MEDS: ENOXAPARIN 40MG/0.4ML SYRINGE (J1650 PER 10MG) SC SCH (09:20)
[2020-04-30] MEDS: PANTOPRAZOLE 40MG TAB (PROTONIX) PO SCH (09:20)
[2020-04-30] MEDS: SENNA 8.6 MG TAB (SENOKOT) PO SCH ×2 (09:20→20:51)
[2020-04-30] MEDS: CLOPIDOGREL 75 MG TAB PO SCH (09:20)
[2020-04-30] MEDS: amLODIPine 5 MG TAB PO SCH (09:23)
[2020-04-30] MEDS: ACETAMINOPHEN TAB 650MG DOSE (2X325MG) PO PRN (20:52)
[2020-04-30] MEDS: LEVEMIR (INSULIN DETEMIR) 1 UNITS/0.01ML SC SCH (20:53)
[2020-05-01] MEDS: LEVOTHYROXINE 100MCG TABLET (0.1MG) PO SCH (05:50)
[2020-05-01 06:00] VITALS: BP 143/80
[2020-05-01] MEDS: ATORVASTATIN 20 MG TAB PO SCH (09:30)
[2020-05-01] MEDS: ENOXAPARIN 40MG/0.4ML SYRINGE (J1650 PER 10MG) SC SCH (09:30)
[2020-05-01] MEDS: CLOPIDOGREL 75 MG TAB PO SCH (09:30)
[2020-05-01] MEDS: HumaLOG INSULIN (NovoLOG) PER UNIT SC SCH ×4 (09:30→21:00)
[2020-05-01] MEDS: PANTOPRAZOLE 40MG TAB (PROTONIX) PO SCH (09:30)
[2020-05-01] MEDS: SENNA 8.6 MG TAB (SENOKOT) PO SCH ×2 (09:30→20:08)
[2020-05-01] MEDS: amLODIPine 5 MG TAB PO SCH (09:33)
[2020-05-02] MEDS: LEVOTHYROXINE 100MCG TABLET (0.1MG) PO SCH (05:22)
[2020-05-02 06:00] VITALS: BP 150/71
[2020-05-02] MEDS: ATORVASTATIN 20 MG TAB PO SCH (08:21)
[2020-05-02] MEDS: amLODIPine 5 MG TAB PO SCH (08:21)
[2020-05-02] MEDS: CLOPIDOGREL 75 MG TAB PO SCH (08:21)
[2020-05-02] MEDS: HumaLOG INSULIN (NovoLOG) PER UNIT SC SCH ×4 (08:21→20:05)
[2020-05-02] MEDS: SENNA 8.6 MG TAB (SENOKOT) PO SCH ×2 (08:21→20:05)
[2020-05-02] MEDS: PANTOPRAZOLE 40MG TAB (PROTONIX) PO SCH (08:21)
[2020-05-02] MEDS: ENOXAPARIN 40MG/0.4ML SYRINGE (J1650 PER 10MG) SC SCH (08:22)
[2020-05-03 06:00] VITALS: BP 155/69
[2020-05-03] MEDS: LEVOTHYROXINE 100MCG TABLET (0.1MG) PO SCH (06:03)
[2020-05-03] MEDS ORDERED: HumaLOG INSULIN (NovoLOG) PER UNIT SC ONE (07:00)
[2020-05-03] MEDS: CLOPIDOGREL 75 MG TAB PO SCH (09:04)
[2020-05-03] MEDS: PANTOPRAZOLE 40MG TAB (PROTONIX) PO SCH (09:04)
[2020-05-03] MEDS: ATORVASTATIN 20 MG TAB PO SCH (09:04)
[2020-05-03] MEDS: amLODIPine 5 MG TAB PO SCH (09:05)
[2020-05-03] MEDS: ENOXAPARIN 40MG/0.4ML SYRINGE (J1650 PER 10MG) SC SCH (09:05)
[2020-05-03] MEDS: SENNA 8.6 MG TAB (SENOKOT) PO SCH ×2 (09:05→20:09)
[2020-05-03] MEDS: HumaLOG INSULIN (NovoLOG) PER UNIT SC SCH ×4 (09:06→20:07)
[2020-05-04 06:00] VITALS: BP 138/60
[2020-05-04] MEDS: LEVOTHYROXINE 100MCG TABLET (0.1MG) PO SCH (06:06)
[2020-05-04] MEDS ORDERED: HumaLOG INSULIN (NovoLOG) PER UNIT SC ONE ×2 (06:30→09:00)
[2020-05-04] MEDS: CLOPIDOGREL 75 MG TAB PO SCH (08:06)
[2020-05-04] MEDS: SENNA 8.6 MG TAB (SENOKOT) PO SCH (08:06)
[2020-05-04] MEDS: PANTOPRAZOLE 40MG TAB (PROTONIX) PO SCH (08:06)
[2020-05-04] MEDS: ENOXAPARIN 40MG/0.4ML SYRINGE (J1650 PER 10MG) SC SCH (08:06)
[2020-05-04] MEDS: ATORVASTATIN 20 MG TAB PO SCH (08:06)
[2020-05-04 08:07] VITALS: BP 138/60
[2020-05-04] MEDS: amLODIPine 5 MG TAB PO SCH (08:07)
[2020-05-04] MEDS: HumaLOG INSULIN (NovoLOG) PER UNIT SC SCH ×2 (08:49→12:25)
[2020-05-04] MEDS ORDERED: INSUDET SC (11:25)
[2020-05-04] MEDS ORDERED: ACET1TAB55 PO (11:25)
[2020-05-04] MEDS ORDERED: SENN18TA PO (11:25)
[2020-05-04] MEDS ORDERED: LEVALBUTEROL 1.25 MG/0.5 ML CONCENTRATE NEB INH PRN (11:30)
[2020-05-04] MEDS ORDERED: INSUHUMDS SC ×2 (11:30)
[2020-05-04] MEDS ORDERED: LEVEMIR (INSULIN DETEMIR) 1 UNITS/0.01ML SC SCH (21:00)
--- NOTE | 2020-05-05 00:10 | DS.PDOC ---
Discharge Summary General Date of Admission Apr 18, 2020 at 03:51 Date of Discharge May 04, 2020 Attending Physician: PEYTON TORREZ DO Discharge Summary PROCEDURES PERFORMED DURING STAY: None ADMITTING DIAGNOSES: 1. UTI 2. Metabolic encephalopathy 3. Uncontrolled type 1 diabetes mellitus 4. Hypertension 5. ALONDRA DISCHARGE DIAGNOSES: 1. UTI 2. Metabolic encephalopathy 3. Uncontrolled type 1 diabetes mellitus 4. Hypertension 5. ALONDRA COMPLICATIONS/CHIEF COMPLAINT: Uti, Altered Mental Status. HISTORY OF PRESENT ILLNESS: Mrs. Morales is a 79 year old female who was admitted for continuous decline in cognition. Per , she has becoming more forg etful and has been hallucinating, seeing objects not there. After admission in February for UTI, her mental status at started to rapidly decline. HOSPITAL COURSE: During her hospitalization, she was treated with 2 days of Ciprofloxacin and and 1 dose of Fosfomycin. Urine culture was contaminated, and no organisms identified. Otherwise, she did have ALONDRA while resolved. Of note, she became hypoglycemic on Levemir, and it was discontinued. Her blood sugar rapidly increased. Today, she was just restarted on Levemir qHS. Since the beginning of the admission, PFS has been discussing placement vs home with services with the . Family ultimately decided placement. Today, they had a bed availability. This morning, patient was feeling well. Denied any fever/chills, chest pain, dyspnea, abdominal pain, or dysuria. She felt ready and was subsequently discharged to [facility]. DISCHARGE MEDICATIONS: Please see below. ALLERGIES: Please see below. PHYSICAL EXAMINATION ON DISCHARGE: VITAL SIGNS: Please see below. GENERAL: Comfortable, in no apparent distress HEENT: Head normocephalic, atraumatic, EOMI, sclera clear NECK: Supple CARDIOVASCULAR EXAMINATION: Regular rate and rhythm RESPIRATORY EXAMINATION: Lungs clear to auscultation bilaterally ABDOMINAL EXAMINATION: Soft, non-tender, normal bowel sounds EXTREMITIES: No pitting edema bilaterally SKIN: Warm and dry NEUROLOGICAL EXAMINATION: CN 3-12 grossly intact PSYCHIATRIC EXAMINATION: Normal mood and affect LABORATORY DATA: Please see below. IMAGING: (radiology impression) CT head Minimal chronic ischemic white matter change and atrophy which is similar to 02/29/2020. No acute interval intracranial process is identified. CXR Negative chest without significant change from 03/01/2020. PROGNOSIS: Good ACTIVITY: As tolerated. DIET: Carbohydrate consistent diet DISCHARGE PLAN: Discharge to [facility] DISPOSITION: [facility]. DISCHARGE INSTRUCTIONS: 1. Follow up with your provider at [facility] DISCHARGE CONDITION: Stable. Total time spent on discharge planning, discharge summary, and medication reconciliation: 45 minutes Vital Signs/I&Os Vital Signs Date Time Temp Pulse Resp B/P (MAP) Pulse Ox O2 Delivery O2 Flow Rate FiO2 05/04/20 08:07 82 138/60 05/04/20 06:00 99.5 18 97 Room Air I&O- Last 24 Hours up to 6 AM 05/04/20 06:00 Intake Total 716 ml Output Total 300 ml Balance 416 ml Laboratory Data Labs 24H Laboratory Tests 2 05/04/20 06:08: Bedside Glucose (Misc Panel) 554*H 05/04/20 06:17: Bedside Glucose Confirm (Misc) 574*H 05/04/20 06:55: Bedside Glucose (Misc Panel) 514*H 05/04/20 07:45: Bedside Glucose (Misc Panel) 554*H 05/04/20 11:19: Bedside Glucose (Misc Panel) 178H 05/04/20 11:36: Coronavirus (COVID-19)(PCR) NEGATIVE FSBS Laboratory Tests Test 05/04/20 06:08 05/04/20 06:55 05/04/20 07:45 05/04/20 11:19 Range/Units Bedside Glucose (Misc Panel) 554 514 554 178 83-110 MG/DL Discharge Medications Scheduled Amlodipine Besylate (Amlodipine Besylate) 5 Mg Tablet, 5 MG PO DAILY, (Reported) Atorvastatin Calcium (Atorvastatin Calcium) 20 Mg Tablet, 20 MG PO DAILY, (Reported) Bimatoprost (Lumigan) 0.01% 2.5ML Drops, 1 DROP OU QHS, (Reported) Cholecalciferol (Vitamin D3) (Vitamin D3) 125 Mcg Tablet, 125 MCG PO DAILY, (Reported) Clopidogrel Bisulfate (Clopidogrel) 75 Mg Tablet, 75 MG PO DAILY, (Reported) Cyanocobalamin (Vitamin B-12) (Vitamin B-12) 1,000 Mcg Capsule, 1,000 MCG PO DAILY, (Reported) Dorzolamide HCl/Timolol Maleat (Dorzolamide-Timolol Eye Drops) 10 Ml Drops, 1 DROP OU BID, (Reported) Insulin Detemir (Levemir) 100 Unit/1 Ml Vial, 10 UNITS SC QHS Insulin Human Lispro (Humalog) 100 Unit/1 Ml Vial, 0 UNITS SC AC Insulin Human Lispro (Humalog) 100 Unit/1 Ml Vial, 0 UNITS SC QHS Levothyroxine Sodium (Synthroid) 100 Mcg Tablet, 100 MCG PO DAILY, (Reported) Netarsudil Mesylate (Rhopressa) 2.5 Ml Drops, 1 DROP OU QAM, (Reported) Nitroglycerin (Nitroglycerin) 0.4 Mg Tab.subl, 0.4 MG SL NITRO, (Reported) [place]-3 Fatty Acids/Fish Oil (Fish Oil 1,000 mg Capsule) 1 Each Capsule, 1,000 MG PO QHS, (Reported) Pantoprazole Sodium (Pantoprazole Sodium) 40 Mg Tablet.dr, 40 MG PO DAILY, (Reported) Senna (Senna Lax) 8.6 Mg Tablet, 2 TAB PO BID Scheduled PRN Acetaminophen (Acetaminophen) 325 Mg Tablet, 650 MG PO Q4H PRN for PAIN OR FEVER Glucagon,Human Recombinant (Glucagon Emergency Kit) 1 Mg Vial, 1 MG IM ASDIRECTED PRN for LOW BLOOD SUGAR, (Reported) Miscellaneous Medications [Patient Comment] , (Reported) PATIENT IS NOT A GOOD HISTORIAN. COMPLETED MED REC VIA EXTERNAL MED HISTORY. Allergies Coded Allergies: Penicillins (Verified Allergy, Unknown, 08/20/18) PEYTON TORREZ DO May 05, 2020 00:10
== END 2020-05-04 13:58 | DRG 689 ==
LOC: EDBD 21:56 → M ED 21:56 → EDSEX 21:56 → M ED INP 04-18 03:51 → ENRESERV 04-18 05:08 → M MSPAV 04-18 05:10
PROVIDERS: ADMIT Family Medicine; ATTEND Internal Medicine
DX: N39.0 Urinary tract infection, site not specified (principal); G93.41 Metabolic encephalopathy; N17.9 Acute kidney failure, unspecified; F03.90 Unspecified dementia, unspecified severity, without behavioral disturbance, psychotic disturbance, mood disturbance, and anxiety; E10.65 Type 1 diabetes mellitus with hyperglycemia; Z79.899 Other long term (current) drug therapy; Z88.0 Allergy status to penicillin; Z79.82 Long term (current) use of aspirin

== ENCOUNTER → 2020-05-11 | Outpatient (REF) ==
[~2020-05-11] MED LIST changes: +ACET1TAB55 PO; +ASPI-161 PO; +B-12100010 PO; +D-50TAB PO; +DONE10TA90 PO; +RA N1TAB PO; +SENN18TA PO
== END ==
LOC: SKLAB2 07:00
PROVIDERS: ATTEND Internal Medicine
DX: Z11.52 Encounter for screening for COVID-19 (principal)

== ENCOUNTER → 2020-05-18 | Outpatient (REF) ==
[2020-05-18 14:31] LABS: CALCIUM LEVEL 9.1 MG/DL (8.8-10.2); CREATININE FOR GFR 1.44 MG/DL (0.55-1.30); GLOMERULAR FILTRATION RATE 37.4 (>39); POTASSIUM SERUM 4.4 MEQ/L (3.5-5.1)
== END ==
LOC: SKLAB3 12:17
PROVIDERS: ATTEND Internal Medicine
DX: Z20.822 Contact with and (suspected) exposure to COVID-19 (principal)

== ENCOUNTER → 2020-05-25 | Outpatient (REF) | payer MEDICARE | LOC: SKLAB3 07:00 | PROVIDERS: ATTEND Internal Medicine | DX: Z20.822 Contact with and (suspected) exposure to COVID-19 (principal) ==

== ENCOUNTER → 2020-06-01 | Outpatient (REF) | payer MEDICARE ==
[2020-06-01 10:16] LABS: HEMATOCRIT 34.3 % (36.0-47.0); MEAN CORPUSCULAR HEMOGLOBIN 29.6 pg (27.0-33.0); MEAN CORPUSCULAR HGB CONC 32.1 g/dl (32.0-36.5); MEAN CORPUSCULAR VOLUME 92.2 fl (80.0-96.0); PLATELET COUNT, AUTOMATED 287 10^3/uL (150-450); RED BLOOD COUNT 3.72 10^6/uL (4.00-5.40); WHITE BLOOD COUNT 7.5 10^3/uL (4.0-10.0)
[2020-06-01 10:37] LABS: CALCIUM LEVEL 9.5 MG/DL (8.8-10.2); CREATININE FOR GFR 1.15 MG/DL (0.55-1.30); GLOMERULAR FILTRATION RATE 48.5 (>39); POTASSIUM SERUM 3.9 MEQ/L (3.5-5.1)
[2020-06-01 14:26] LABS: APPEARANCE, URINE CLOUDY (CLEAR); BACTERIA, URINE AUTO 1+ (NEGATIVE); BILIRUBIN, URINE AUTO NEGATIVE (NEGATIVE); BLOOD, URINE BLOOD 1+ (NEGATIVE); COLOR, URINE AMBER (YELLOW); GLUCOSE, URINE (UA) AUTO NEGATIVE (NEGATIVE); KETONE, URINE AUTO TRACE mg/dL (NEGATIVE); LEUKOCYTE ESTERASE, URINE AUTO 3+ (NEGATIVE); MUCUS, URINE SMALL (NEGATIVE); NITRITE, URINE AUTO NEGATIVE (NEGATIVE); PROTEIN, URINE AUTO 1+ mg/dL (NEGATIVE); RBC, URINE AUTO 23 /HPF (0-3); SPECIFIC GRAVITY URINE AUTO 1.017 (1.002-1.035); SQUAMOUS EPITHELIAL CELL UR AU 1 /HPF (0-6); UROBILINOGEN, URINE AUTO 0.2 mg/dL (0.0-2.0); WBC, URINE AUTO TNTC /HPF (0-3)
== END ==
LOC: SKLAB3 07:09
PROVIDERS: ATTEND Internal Medicine
DX: F29 Unspecified psychosis not due to a substance or known physiological condition (principal); Z20.822 Contact with and (suspected) exposure to COVID-19
CPT/HCPCS: 36415; 80048; 81001; 85027; U0003

== ENCOUNTER → 2020-06-08 | Outpatient (REF) | payer MEDICARE | LOC: SKLAB3 07:00 | PROVIDERS: ATTEND Internal Medicine | DX: Z11.52 Encounter for screening for COVID-19 (principal) ==

== ENCOUNTER → 2020-06-15 | Outpatient (REF) | payer MEDICARE | LOC: SKLAB3 11:25 | PROVIDERS: ATTEND Internal Medicine | DX: Z20.822 Contact with and (suspected) exposure to COVID-19 (principal) ==

== ENCOUNTER → 2020-06-22 | Outpatient (REF) | payer MEDICARE | LOC: SKLAB3 07:00 | PROVIDERS: ATTEND Internal Medicine | DX: Z20.822 Contact with and (suspected) exposure to COVID-19 (principal) ==

== ENCOUNTER → 2020-06-29 | Outpatient (REF) | payer MEDICARE | LOC: SKLAB3 07:00 | PROVIDERS: ATTEND Internal Medicine | DX: Z20.822 Contact with and (suspected) exposure to COVID-19 (principal) ==

== ENCOUNTER → 2020-06-30 | Outpatient (REF) | payer MEDICARE ==
[2020-06-30 14:29] LABS: HEMATOCRIT 35.6 % (36.0-47.0); HEMOGLOBIN 11.3 g/dl (12.0-15.5); MEAN CORPUSCULAR HEMOGLOBIN 28.9 pg (27.0-33.0); MEAN CORPUSCULAR HGB CONC 31.7 g/dl (32.0-36.5); PLATELET COUNT, AUTOMATED 202 10^3/uL (150-450); RED BLOOD COUNT 3.91 10^6/uL (4.00-5.40); WHITE BLOOD COUNT 9.5 10^3/uL (4.0-10.0)
[2020-06-30 14:50] LABS: CALCIUM LEVEL 9.2 MG/DL (8.8-10.2); CREATININE FOR GFR 1.39 MG/DL (0.55-1.30); GLOMERULAR FILTRATION RATE 38.9 (>39); POTASSIUM SERUM 4.2 MEQ/L (3.5-5.1)
== END ==
LOC: SKLAB3 12:01
DX: R73.09 Other abnormal glucose (principal)

== ENCOUNTER → 2020-07-04 | Outpatient (REF) | payer MEDICARE ==
[2020-07-04 09:07] LABS: BLOOD UREA NITROGEN 26 MG/DL (7-18); CARBON DIOXIDE LEVEL 26 MEQ/L (21-32); CHLORIDE LEVEL 108 MEQ/L (98-107); CREATININE FOR GFR 0.95 MG/DL (0.55-1.30); GLOMERULAR FILTRATION RATE > 60.0 (>39); GLUCOSE, FASTING 274 MG/DL (70-100); POTASSIUM SERUM 4.6 MEQ/L (3.5-5.1); SODIUM LEVEL 140 MEQ/L (136-145)
== END ==
LOC: SKLAB3 11:05
DX: N18.9 Chronic kidney disease, unspecified (principal)

== ENCOUNTER → 2020-07-13 | Outpatient (REF) | payer MEDICARE | LOC: SKLAB3 14:10 | PROVIDERS: ATTEND Internal Medicine | DX: Z20.822 Contact with and (suspected) exposure to COVID-19 (principal) ==

== ENCOUNTER → 2020-07-20 | Outpatient (REF) | payer MEDICARE | LOC: SKLAB3 07:00 | PROVIDERS: ATTEND Internal Medicine | DX: Z20.822 Contact with and (suspected) exposure to COVID-19 (principal) ==

== ENCOUNTER → 2020-08-05 | Outpatient (REF) | payer MEDICARE | LOC: SKLAB3 08:53 | PROVIDERS: ATTEND Internal Medicine | DX: Z20.822 Contact with and (suspected) exposure to COVID-19 (principal) ==

== ENCOUNTER → 2020-08-10 | Outpatient (REF) | payer MEDICARE ==
[~2020-08-10] MED LIST changes: +ACYC1TAB PO; -ACYC400T PO
== END ==
LOC: SKLAB3 08:00
PROVIDERS: ATTEND Internal Medicine
DX: E10.649 Type 1 diabetes mellitus with hypoglycemia without coma (principal)

== ENCOUNTER → 2020-09-20 | Outpatient (REF) | payer MEDICARE ==
[2020-09-20 09:14] LABS: HEMATOCRIT 36.3 % (36.0-47.0); HEMOGLOBIN 11.6 g/dl (12.0-15.5); MEAN CORPUSCULAR HEMOGLOBIN 28.8 pg (27.0-33.0); MEAN CORPUSCULAR VOLUME 90.1 fl (80.0-96.0); PLATELET COUNT, AUTOMATED 212 10^3/uL (150-450); RED BLOOD COUNT 4.03 10^6/uL (4.00-5.40); WHITE BLOOD COUNT 6.8 10^3/uL (4.0-10.0)
[2020-09-20 09:46] LABS: ALBUMIN 3.1 GM/DL (3.2-5.2); BILIRUBIN,TOTAL 0.8 MG/DL (0.2-1.0); CHOLESTEROL RISK RATIO 2.315 (<5); CREATININE FOR GFR 0.96 MG/DL (0.55-1.30); GLOMERULAR FILTRATION RATE 59.5 (>32); POTASSIUM SERUM 4.4 MEQ/L (3.5-5.1); THYROID STIMULATING HORMONE 0.07 uIU/ML (0.358-3.740); TOTAL PROTEIN 5.8 GM/DL (6.4-8.2)
[2020-09-20 09:55] LABS: CREATININE, URINE 90.1 MG/DL; MALB URINE SIEMENS 34.2 MG/L; MAU/CREAT RATIO 37.9 MCG/MG (0.0-30.0)
[2020-09-20 10:33] LABS: HEMOGLOBIN A1c 9.8 %
== END ==
LOC: SKLAB3 07:00
DX: E78.5 Hyperlipidemia, unspecified (principal); F03.90 Unspecified dementia, unspecified severity, without behavioral disturbance, psychotic disturbance, mood disturbance, and anxiety; E53.8 Deficiency of other specified B group vitamins; I10 Essential (primary) hypertension; E11.9 Type 2 diabetes mellitus without complications

== ENCOUNTER → 2020-10-11 | Outpatient (REF) | payer MEDICARE ==
[2020-10-11 13:06] LABS: CALCIUM LEVEL 9.3 MG/DL (8.8-10.2); CREATININE FOR GFR 1.36 MG/DL (0.55-1.30); GLOMERULAR FILTRATION RATE 39.8 (>32); POTASSIUM SERUM 5.6 MEQ/L (3.5-5.1); THYROID STIMULATING HORMONE 0.378 uIU/ML (0.358-3.740)
== END ==
LOC: SKLAB3 07:00
DX: E11.9 Type 2 diabetes mellitus without complications (principal)

== ENCOUNTER → 2020-10-12 | Outpatient (REF) | payer MEDICARE ==
[2020-10-12 13:19] LABS: HEMATOCRIT 35.1 % (36.0-47.0); HEMOGLOBIN 11.4 g/dl (12.0-15.5); MEAN CORPUSCULAR HGB CONC 32.5 g/dl (32.0-36.5); MEAN CORPUSCULAR VOLUME 89.3 fl (80.0-96.0); PLATELET COUNT, AUTOMATED 211 10^3/uL (150-450); RED BLOOD COUNT 3.93 10^6/uL (4.00-5.40); WHITE BLOOD COUNT 8.4 10^3/uL (4.0-10.0)
[2020-10-12 13:36] LABS: BILIRUBIN,TOTAL 0.7 MG/DL (0.2-1.0); CREATININE FOR GFR 1.14 MG/DL (0.55-1.30); GLOMERULAR FILTRATION RATE 48.8 (>32); TOTAL PROTEIN 5.6 GM/DL (6.4-8.2)
[2020-10-12 14:12] LABS: APPEARANCE, URINE CLOUDY (CLEAR); BACTERIA, URINE AUTO 2+ (NEGATIVE); BILIRUBIN, URINE AUTO NEGATIVE (NEGATIVE); BLOOD, URINE BLOOD 1+ (NEGATIVE); COLOR, URINE YELLOW (YELLOW); GLUCOSE, URINE (UA) AUTO 3+ mg/dL (NEGATIVE); KETONE, URINE AUTO NEGATIVE (NEGATIVE); LEUKOCYTE ESTERASE, URINE AUTO 3+ (NEGATIVE); MUCUS, URINE MODERATE (NEGATIVE); NITRITE, URINE AUTO NEGATIVE (NEGATIVE); PROTEIN, URINE AUTO NEGATIVE (NEGATIVE); RBC, URINE AUTO 7 /HPF (0-3); SPECIFIC GRAVITY URINE AUTO 1.015 (1.002-1.035); SQUAMOUS EPITHELIAL CELL UR AU 0 /HPF (0-6); UROBILINOGEN, URINE AUTO 0.2 mg/dL (0.0-2.0); WBC, URINE AUTO TNTC /HPF (0-3)
== END ==
LOC: SKLAB3 11:59
DX: R41.0 Disorientation, unspecified (principal); R73.09 Other abnormal glucose

== ENCOUNTER → 2020-10-13 | Outpatient (REF) | payer MEDICARE | LOC: SKLAB3 09:52 | DX: Z53.8 Procedure and treatment not carried out for other reasons (principal) ==

== ENCOUNTER → 2020-10-15 | Outpatient (REF) | payer MEDICARE ==
[2020-10-15 10:40] LABS: CALCIUM LEVEL 8.9 MG/DL (8.8-10.2); CREATININE FOR GFR 1.31 MG/DL (0.55-1.30); GLOMERULAR FILTRATION RATE 41.6 (>32); POTASSIUM SERUM 5.1 MEQ/L (3.5-5.1)
== END ==
LOC: SKLAB3 07:00
DX: E11.9 Type 2 diabetes mellitus without complications (principal)

== ENCOUNTER → 2020-10-19 | Outpatient (CLI) | payer MEDICARE | LOC: SKLAB3 00:46 → M LAB 00:46 | DX: R81 Glycosuria (principal) ==

== ENCOUNTER → 2020-10-25 | Outpatient (REF) | payer MEDICARE | LOC: SKLAB3 16:35 | DX: R73.09 Other abnormal glucose (principal); Z53.8 Procedure and treatment not carried out for other reasons ==

== ENCOUNTER → 2021-01-24 | Outpatient (REF) | payer MEDICARE ==
[2021-01-24 09:52] LABS: CALCIUM LEVEL 9.1 MG/DL (8.8-10.2); PHOSPHORUS LEVEL 3.5 MG/DL (2.5-4.9)
[2021-01-24 10:03] LABS: TOTAL 25(OH) VITAMIN D 33.1 NG/ML (30.0-100.0)
[2021-01-24 10:20] LABS: HEMOGLOBIN A1c 9.7 %
== END ==
LOC: SKLAB3 07:00
PROVIDERS: ATTEND Neuromusculoskeletal Medicine & OMM
DX: E11.69 Type 2 diabetes mellitus with other specified complication (principal); Z79.899 Other long term (current) drug therapy

== ENCOUNTER → 2021-02-21 | Outpatient (REF) | payer MEDICARE | LOC: SKLAB3 06:38 | PROVIDERS: ATTEND Neuromusculoskeletal Medicine & OMM | DX: E11.9 Type 2 diabetes mellitus without complications (principal); E03.9 Hypothyroidism, unspecified ==

== ENCOUNTER → 2021-02-23 | Outpatient (REF) | payer MEDICARE | LOC: SKLAB3 07:58 | PROVIDERS: ATTEND Neuromusculoskeletal Medicine & OMM | DX: Z20.822 Contact with and (suspected) exposure to COVID-19 (principal) ==

== ENCOUNTER → 2021-02-27 | Outpatient (REF) | payer MEDICARE | LOC: SKLAB3 07:00 | PROVIDERS: ATTEND Internal Medicine | DX: Z20.822 Contact with and (suspected) exposure to COVID-19 (principal) ==

== ENCOUNTER → 2021-02-28 | Outpatient (REF) | payer MEDICARE ==
[~2021-02-28] MED LIST changes: -CITA10TA5 PO; +CITA10TA7 PO; -LEVO250T12 PO; +LEVO250T3 PO; +LOSA100T45 PO; -LOSA100T50 PO; +METH25TA10 PO; -METH25TA3 PO; +OMEP-173 PO; -OMEP-218 PO
== END ==
LOC: SKLAB3 22:30
PROVIDERS: ATTEND Internal Medicine
DX: Z20.822 Contact with and (suspected) exposure to COVID-19 (principal)

== ENCOUNTER → 2021-03-02 | Outpatient (REF) | payer MEDICARE ==
[~2021-03-02] MED LIST changes: +CITA10TA5 PO; -CITA10TA7 PO; +LEVO250T12 PO; -LEVO250T3 PO; -LOSA100T45 PO; +LOSA100T50 PO; -METH25TA10 PO; +METH25TA3 PO; -OMEP-173 PO; +OMEP-218 PO
== END ==
LOC: SKLAB3 06:28
PROVIDERS: ATTEND Internal Medicine
DX: Z20.822 Contact with and (suspected) exposure to COVID-19 (principal)

== ENCOUNTER → 2021-03-04 | Outpatient (REF) | payer MEDICARE | LOC: SKLAB3 07:00 | PROVIDERS: ATTEND Neuromusculoskeletal Medicine & OMM | DX: R73.09 Other abnormal glucose (principal) ==

== ENCOUNTER → 2021-03-06 | Outpatient (REF) | payer MEDICARE | LOC: SKLAB3 06:22 | PROVIDERS: ATTEND Internal Medicine | DX: Z20.822 Contact with and (suspected) exposure to COVID-19 (principal) ==

== ENCOUNTER → 2021-03-08 | Outpatient (REF) | payer MEDICARE ==
[2021-03-08 12:41] LABS: HEMATOCRIT 39.1 % (36.0-47.0); HEMOGLOBIN 12.6 g/dl (12.0-15.5); MEAN CORPUSCULAR HEMOGLOBIN 29.2 pg (27.0-33.0); MEAN CORPUSCULAR HGB CONC 32.2 g/dl (32.0-36.5); MEAN CORPUSCULAR VOLUME 90.5 fl (80.0-96.0); PLATELET COUNT, AUTOMATED 241 10^3/uL (150-450); RED BLOOD COUNT 4.32 10^6/uL (4.00-5.40); WHITE BLOOD COUNT 11.6 10^3/uL (4.0-10.0)
[2021-03-08 13:10] LABS: ALBUMIN 3.5 GM/DL (3.2-5.2); BILIRUBIN,TOTAL 0.7 MG/DL (0.2-1.0); CALCIUM LEVEL 9.7 MG/DL (8.8-10.2); CREATININE FOR GFR 1.43 MG/DL (0.55-1.30); GLOMERULAR FILTRATION RATE 37.6 (>32); POTASSIUM SERUM 3.9 MEQ/L (3.5-5.1); TOTAL PROTEIN 6.8 GM/DL (6.4-8.2)
== END ==
LOC: SKLAB3 08:02
PROVIDERS: ATTEND Neuromusculoskeletal Medicine & OMM
DX: U07.1 COVID-19 (principal); Z79.899 Other long term (current) drug therapy

== ENCOUNTER → 2021-03-10 | Outpatient (REF) | payer MEDICARE ==
[2021-03-10 11:30] LABS: HEMATOCRIT 37.8 % (36.0-47.0); HEMOGLOBIN 12.2 g/dl (12.0-15.5); MEAN CORPUSCULAR HEMOGLOBIN 29.4 pg (27.0-33.0); MEAN CORPUSCULAR HGB CONC 32.3 g/dl (32.0-36.5); MEAN CORPUSCULAR VOLUME 91.1 fl (80.0-96.0); PLATELET COUNT, AUTOMATED 200 10^3/uL (150-450); RED BLOOD COUNT 4.15 10^6/uL (4.00-5.40); WHITE BLOOD COUNT 8.1 10^3/uL (4.0-10.0)
[2021-03-10 12:19] LABS: BILIRUBIN,TOTAL 0.5 MG/DL (0.2-1.0); CREATININE FOR GFR 1.11 MG/DL (0.55-1.30); GLOMERULAR FILTRATION RATE 50.3 (>32); POTASSIUM SERUM 5.2 MEQ/L (3.5-5.1); TOTAL PROTEIN 5.9 GM/DL (6.4-8.2)
== END ==
LOC: SKLAB3 06:00
PROVIDERS: ATTEND Nurse Practitioner
DX: U07.1 COVID-19 (principal); Z79.899 Other long term (current) drug therapy

== ENCOUNTER → 2021-03-13 | Outpatient (REF) | payer MEDICARE ==
[2021-03-13 09:27] LABS: HEMATOCRIT 38.8 % (36.0-47.0); HEMOGLOBIN 12.3 g/dl (12.0-15.5); MEAN CORPUSCULAR HGB CONC 31.7 g/dl (32.0-36.5); MEAN CORPUSCULAR VOLUME 91.5 fl (80.0-96.0); PLATELET COUNT, AUTOMATED 228 10^3/uL (150-450); RED BLOOD COUNT 4.24 10^6/uL (4.00-5.40); WHITE BLOOD COUNT 8.6 10^3/uL (4.0-10.0)
[2021-03-13 10:02] LABS: ALBUMIN 3.2 GM/DL (3.2-5.2); BILIRUBIN,TOTAL 0.8 MG/DL (0.2-1.0); CALCIUM LEVEL 8.7 MG/DL (8.8-10.2); CREATININE FOR GFR 1.34 MG/DL (0.55-1.30); GLOMERULAR FILTRATION RATE 40.5 (>32); POTASSIUM SERUM 4.7 MEQ/L (3.5-5.1); TOTAL PROTEIN 6.1 GM/DL (6.4-8.2)
== END ==
LOC: SKLAB3 08:00
PROVIDERS: ATTEND Neuromusculoskeletal Medicine & OMM
DX: U07.1 COVID-19 (principal); Z79.899 Other long term (current) drug therapy

== ENCOUNTER → 2021-03-15 | Outpatient (REF) | payer MEDICARE ==
[2021-03-15 09:16] LABS: HEMATOCRIT 37.5 % (36.0-47.0); HEMOGLOBIN 12.1 g/dl (12.0-15.5); MEAN CORPUSCULAR HGB CONC 32.3 g/dl (32.0-36.5); MEAN CORPUSCULAR VOLUME 89.9 fl (80.0-96.0); PLATELET COUNT, AUTOMATED 208 10^3/uL (150-450); RED BLOOD COUNT 4.17 10^6/uL (4.00-5.40); WHITE BLOOD COUNT 9.3 10^3/uL (4.0-10.0)
[2021-03-15 09:25] LABS: CALCIUM LEVEL 8.9 MG/DL (8.8-10.2); CREATININE FOR GFR 1.18 MG/DL (0.55-1.30); GLOMERULAR FILTRATION RATE 46.9 (>32); POTASSIUM SERUM 5.1 MEQ/L (3.5-5.1)
== END ==
LOC: SKLAB3 10:45
PROVIDERS: ATTEND Neuromusculoskeletal Medicine & OMM
DX: U07.1 COVID-19 (principal); Z79.899 Other long term (current) drug therapy

== ENCOUNTER → 2021-03-17 | Outpatient (REF) | payer MEDICARE ==
[2021-03-17 13:30] LABS: HEMATOCRIT 38.5 % (36.0-47.0); HEMOGLOBIN 12.4 g/dl (12.0-15.5); MEAN CORPUSCULAR HEMOGLOBIN 29.5 pg (27.0-33.0); MEAN CORPUSCULAR HGB CONC 32.2 g/dl (32.0-36.5); MEAN CORPUSCULAR VOLUME 91.4 fl (80.0-96.0); PLATELET COUNT, AUTOMATED 247 10^3/uL (150-450); RED BLOOD COUNT 4.21 10^6/uL (4.00-5.40); WHITE BLOOD COUNT 12.7 10^3/uL (4.0-10.0)
[2021-03-17 13:57] LABS: CALCIUM LEVEL 9.7 MG/DL (8.8-10.2); CREATININE FOR GFR 1.3 MG/DL (0.55-1.30); POTASSIUM SERUM 4.7 MEQ/L (3.5-5.1)
== END ==
LOC: SKLAB3 12:12
PROVIDERS: ATTEND Neuromusculoskeletal Medicine & OMM
DX: U07.1 COVID-19 (principal); Z79.899 Other long term (current) drug therapy

== ENCOUNTER → 2021-03-27 | Outpatient (REF) | payer MEDICARE ==
[2021-03-27 14:46] LABS: APPEARANCE, URINE CLEAR (CLEAR); BACTERIA, URINE AUTO NEGATIVE (NEGATIVE); BILIRUBIN, URINE AUTO NEGATIVE (NEGATIVE); BLOOD, URINE BLOOD NEGATIVE (NEGATIVE); COLOR, URINE YELLOW (YELLOW); GLUCOSE, URINE (UA) AUTO 3+ mg/dL (NEGATIVE); KETONE, URINE AUTO NEGATIVE (NEGATIVE); LEUKOCYTE ESTERASE, URINE AUTO NEGATIVE (NEGATIVE); NITRITE, URINE AUTO NEGATIVE (NEGATIVE); PROTEIN, URINE AUTO NEGATIVE (NEGATIVE); RBC, URINE AUTO 0 /HPF (0-3); SPECIFIC GRAVITY URINE AUTO 1.016 (1.002-1.035); SQUAMOUS EPITHELIAL CELL UR AU 0 /HPF (0-6); UROBILINOGEN, URINE AUTO 0.2 mg/dL (0.0-2.0); WBC, URINE AUTO 0 /HPF (0-3)
== END ==
LOC: SKLAB3 11:30
PROVIDERS: ATTEND Neuromusculoskeletal Medicine & OMM
DX: R35.0 Frequency of micturition (principal)

== ENCOUNTER → 2021-04-19 | Outpatient (REF) | payer MEDICARE | LOC: SKLAB3 07:00 | PROVIDERS: ATTEND Neuromusculoskeletal Medicine & OMM | DX: Z20.822 Contact with and (suspected) exposure to COVID-19 (principal); Z53.9 Procedure and treatment not carried out, unspecified reason ==

== ENCOUNTER → 2021-04-26 | Outpatient (REF) | payer MEDICARE | LOC: SKLAB3 11:25 | PROVIDERS: ATTEND Neuromusculoskeletal Medicine & OMM | DX: Z20.822 Contact with and (suspected) exposure to COVID-19 (principal); Z53.9 Procedure and treatment not carried out, unspecified reason ==

== ENCOUNTER → 2021-05-03 | Outpatient (REF) | payer MEDICARE | LOC: SKLAB3 06:59 | PROVIDERS: ATTEND Neuromusculoskeletal Medicine & OMM | DX: Z20.822 Contact with and (suspected) exposure to COVID-19 (principal) ==

== ENCOUNTER → 2021-05-10 | Outpatient (REF) | payer MEDICARE ==
[~2021-05-10] MED LIST changes: -CITA10TA5 PO; +CITA10TA7 PO; -LEVO250T12 PO; +LEVO250T3 PO; +LOSA100T45 PO; -LOSA100T50 PO; +METH25TA10 PO; -METH25TA3 PO
== END ==
LOC: SKLAB3 08:58
PROVIDERS: ATTEND Neuromusculoskeletal Medicine & OMM
DX: Z20.822 Contact with and (suspected) exposure to COVID-19 (principal); Z53.9 Procedure and treatment not carried out, unspecified reason

== ENCOUNTER → 2021-05-23 | Outpatient (REF) | payer MEDICARE ==
[~2021-05-23] MED LIST changes: +OMEP-173 PO; -OMEP-218 PO
[2021-05-23 08:50] LABS: HEMOGLOBIN A1c 9.3 %
[2021-05-23 14:32] LABS: APPEARANCE, URINE CLEAR (CLEAR); BACTERIA, URINE AUTO NEGATIVE (NEGATIVE); BILIRUBIN, URINE AUTO NEGATIVE (NEGATIVE); BLOOD, URINE BLOOD NEGATIVE (NEGATIVE); COLOR, URINE YELLOW (YELLOW); GLUCOSE, URINE (UA) AUTO 3+ mg/dL (NEGATIVE); KETONE, URINE AUTO NEGATIVE (NEGATIVE); LEUKOCYTE ESTERASE, URINE AUTO NEGATIVE (NEGATIVE); NITRITE, URINE AUTO NEGATIVE (NEGATIVE); PROTEIN, URINE AUTO NEGATIVE (NEGATIVE); RBC, URINE AUTO 0 /HPF (0-3); SPECIFIC GRAVITY URINE AUTO 1.024 (1.002-1.035); SQUAMOUS EPITHELIAL CELL UR AU 1 /HPF (0-6); UROBILINOGEN, URINE AUTO 0.2 mg/dL (0.0-2.0); WBC, URINE AUTO 0 /HPF (0-3)
== END ==
LOC: SKLAB3 14:03
PROVIDERS: ATTEND Neuromusculoskeletal Medicine & OMM
DX: E11.9 Type 2 diabetes mellitus without complications (principal); Z79.899 Other long term (current) drug therapy

== ENCOUNTER → 2021-06-20 | Outpatient (REF) | payer MEDICARE | LOC: SKLAB3 11:24 | PROVIDERS: ATTEND Neuromusculoskeletal Medicine & OMM | DX: E03.9 Hypothyroidism, unspecified (principal) ==

== ENCOUNTER → 2021-06-26 | Outpatient (CLI) | payer MEDICARE | LOC: SKLAB3 23:50 | PROVIDERS: ATTEND Neuromusculoskeletal Medicine & OMM | DX: N39.0 Urinary tract infection, site not specified (principal) ==

== ENCOUNTER → 2021-07-18 | Outpatient (REF) | payer MEDICARE ==
[2021-07-18 09:04] LABS: HEMATOCRIT 38.4 % (36.0-47.0); HEMOGLOBIN 12.4 g/dl (12.0-15.5); MEAN CORPUSCULAR HEMOGLOBIN 28.8 pg (27.0-33.0); MEAN CORPUSCULAR HGB CONC 32.3 g/dl (32.0-36.5); MEAN CORPUSCULAR VOLUME 89.1 fl (80.0-96.0); PLATELET COUNT, AUTOMATED 214 10^3/uL (150-450); RED BLOOD COUNT 4.31 10^6/uL (4.00-5.40); WHITE BLOOD COUNT 10.3 10^3/uL (4.0-10.0)
== END ==
LOC: SKLAB3 07:03
PROVIDERS: ATTEND Neuromusculoskeletal Medicine & OMM
DX: E11.9 Type 2 diabetes mellitus without complications (principal); I10 Essential (primary) hypertension; I25.10 Atherosclerotic heart disease of native coronary artery without angina pectoris

== ENCOUNTER → 2021-08-22 | Outpatient (REF) | payer MEDICARE ==
[2021-08-22 12:18] LABS: HEMOGLOBIN A1c 9.6 %
== END ==
LOC: SKLAB3 11:40
PROVIDERS: ATTEND Neuromusculoskeletal Medicine & OMM
DX: E11.9 Type 2 diabetes mellitus without complications (principal)

== ENCOUNTER → 2021-09-12 | Outpatient (CLI) | payer MEDICARE | LOC: M RAD 14:12 | PROVIDERS: ATTEND Neuromusculoskeletal Medicine & OMM | DX: M19.072 Primary osteoarthritis, left ankle and foot (principal) ==

== ENCOUNTER → 2021-09-12 | Outpatient (REF) | payer MEDICARE | LOC: SKLAB3 12:24 | PROVIDERS: ATTEND Neuromusculoskeletal Medicine & OMM | DX: Z53.9 Procedure and treatment not carried out, unspecified reason (principal) ==

== ENCOUNTER → 2021-09-19 | Outpatient (REF) | payer MEDICARE ==
[2021-09-19 08:48] LABS: ALBUMIN 2.9 GM/DL (3.2-5.2); BILIRUBIN,TOTAL 0.5 MG/DL (0.2-1.0); CALCIUM LEVEL 9.3 MG/DL (8.8-10.2); CHOLESTEROL RISK RATIO 2.428 (<5); CREATININE FOR GFR 1.05 MG/DL (0.55-1.30); GLOMERULAR FILTRATION RATE 53.5 (>32); POTASSIUM SERUM 4.9 MEQ/L (3.5-5.1); TOTAL PROTEIN 5.8 GM/DL (6.4-8.2)
== END ==
LOC: SKLAB3 11:23
PROVIDERS: ATTEND Neuromusculoskeletal Medicine & OMM
DX: E11.9 Type 2 diabetes mellitus without complications (principal); I25.10 Atherosclerotic heart disease of native coronary artery without angina pectoris; I10 Essential (primary) hypertension

== ENCOUNTER → 2021-10-19 | Outpatient (REF) | payer MEDICARE, MEDICAID | LOC: SKLAB3 09:00 | PROVIDERS: ATTEND Nurse Practitioner | DX: E03.9 Hypothyroidism, unspecified (principal) ==

== ENCOUNTER → 2021-11-20 | Outpatient (REF) | LOC: SKCOV 20:07 | PROVIDERS: ATTEND Neuromusculoskeletal Medicine & OMM | DX: M25.532 Pain in left wrist (principal); M25.542 Pain in joints of left hand ==

== ENCOUNTER → 2021-11-21 | Outpatient (REF) | payer MEDICARE ==
[2021-11-21 08:48] LABS: HEMATOCRIT 35.6 % (36.0-47.0); HEMOGLOBIN 11.6 g/dl (12.0-15.5); MEAN CORPUSCULAR HEMOGLOBIN 28.9 pg (27.0-33.0); MEAN CORPUSCULAR HGB CONC 32.6 g/dl (32.0-36.5); MEAN CORPUSCULAR VOLUME 88.6 fl (80.0-96.0); PLATELET COUNT, AUTOMATED 187 10^3/uL (150-450); RED BLOOD COUNT 4.02 10^6/uL (4.00-5.40); WHITE BLOOD COUNT 9.5 10^3/uL (4.0-10.0)
== END ==
LOC: SKLAB3 09:48
PROVIDERS: ATTEND Nurse Practitioner
DX: E11.9 Type 2 diabetes mellitus without complications (principal); I10 Essential (primary) hypertension

== ENCOUNTER → 2021-12-01 | Outpatient (REF) | payer MEDICARE | LOC: SKLAB3 11:42 | PROVIDERS: ATTEND Neuromusculoskeletal Medicine & OMM | DX: Z20.822 Contact with and (suspected) exposure to COVID-19 (principal) ==

== ENCOUNTER → 2021-12-19 | Outpatient (REF) | payer MEDICARE ==
[~2021-12-19] MED LIST changes: +LEVO1TAB38 PO; -LEVO250T3 PO
[2021-12-19 10:25] LABS: HEMOGLOBIN A1c 9.4 %
== END ==
LOC: SKLAB3 09:44
PROVIDERS: ATTEND Nurse Practitioner
DX: E11.9 Type 2 diabetes mellitus without complications (principal)

== ENCOUNTER → 2022-01-17 | Outpatient (REF) | payer MEDICARE ==
[~2022-01-17] MED LIST changes: +COLE625T17 PO; -COLE625TAB PO
[2022-01-17 17:09] LABS: HEMATOCRIT 36.7 % (36.0-47.0); MEAN CORPUSCULAR HEMOGLOBIN 28.8 pg (27.0-33.0); MEAN CORPUSCULAR HGB CONC 32.7 g/dl (32.0-36.5); MEAN CORPUSCULAR VOLUME 88.2 fl (80.0-96.0); PLATELET COUNT, AUTOMATED 201 10^3/uL (150-450); RED BLOOD COUNT 4.16 10^6/uL (4.00-5.40); WHITE BLOOD COUNT 9.8 10^3/uL (4.0-10.0)
[2022-01-17 17:22] LABS: CALCIUM LEVEL 9.5 MG/DL (8.8-10.2); CREATININE FOR GFR 1.31 MG/DL (0.55-1.30); GLOMERULAR FILTRATION RATE 41.5 (>32)
== END ==
LOC: SKLAB3 13:13
PROVIDERS: ATTEND Nurse Practitioner
DX: E11.69 Type 2 diabetes mellitus with other specified complication (principal); R41.0 Disorientation, unspecified

== ENCOUNTER → 2022-01-23 | Outpatient (REF) | payer MEDICARE | LOC: SKLAB3 10:52 | PROVIDERS: ATTEND Nurse Practitioner | DX: E11.9 Type 2 diabetes mellitus without complications (principal) ==

== ENCOUNTER → 2022-01-23 | Outpatient (REF) | payer MEDICARE ==
[2022-01-23 11:55] LABS: PHOSPHORUS LEVEL 3.8 MG/DL (2.5-4.9)
[2022-01-23 12:29] LABS: PTH INTACT 47.2 PG/ML (18.5-88.0); TOTAL 25(OH) VITAMIN D 29.3 NG/ML (30.0-100.0)
== END ==
LOC: SKLAB3 10:51
PROVIDERS: ATTEND Nurse Practitioner
DX: E11.9 Type 2 diabetes mellitus without complications (principal); I25.10 Atherosclerotic heart disease of native coronary artery without angina pectoris; Z79.899 Other long term (current) drug therapy

== ENCOUNTER → 2022-01-31 | Outpatient (REF) | payer MEDICARE ==
[2022-01-31 12:46] LABS: APPEARANCE, URINE MANUAL CLEAR (CLEAR); COLOR, URINE MANUAL YELLOW (YELLOW)
[2022-01-31 12:47] LABS: BILIRUBIN, URINE MANUAL NEGATIVE (NEGATIVE); KETONE, URINE MANUAL NEGATIVE (NEGATIVE); UROBILINOGEN, URINE MANUAL NORMAL (NORMAL)
[2022-01-31 12:48] LABS: BLOOD URINE MANUAL NEGATIVE (NEGATIVE); GLUCOSE, URINE (UA) MANUAL 4+(1000 MG/DL) mg/dL (NEGATIVE); LEUKOCYTE ESTERASE, URINE MAN POSITIVE (NEGATIVE); NITRITE, URINE MANUAL NEGATIVE (NEGATIVE); PROTEIN, URINE MANUAL TRACE mg/dL (NEGATIVE)
[2022-01-31 13:23] LABS: BACTERIA, URINE SMALL AMOUNT; RBC, URINE 0-1 /hpf (0-3); SQUAMOUS EPITHELIAL CELL URINE MOD AMOUNT /hpf (SMALL AMT); TRANSITIONAL EPI CELLS, URINE SMALL AMOUNT /hpf; WBC, URINE 30-40 /hpf (0-3)
[2022-01-31 13:24] LABS: HYALINE CAST, URINE NONE SEEN /lpf (0-1); MUCUS, URINE SMALL AMOUNT (NEGATIVE)
== END ==
LOC: SKLAB3 12:27
PROVIDERS: ATTEND Nurse Practitioner
DX: R41.0 Disorientation, unspecified (principal)

== ENCOUNTER → 2022-02-08 | Outpatient (REF) | payer MEDICARE | LOC: SKLAB3 13:47 | PROVIDERS: ATTEND Nurse Practitioner | DX: J02.9 Acute pharyngitis, unspecified (principal) ==

== ENCOUNTER → 2022-04-20 | Outpatient (REF) | payer MEDICARE ==
[~2022-04-20] MED LIST changes: +CLOP75TA99 PO; -PLAV1TAB2 PO
== END ==
LOC: SKLAB3 11:30
PROVIDERS: ATTEND Nurse Practitioner
DX: E11.9 Type 2 diabetes mellitus without complications (principal)

== ENCOUNTER → 2022-04-24 | Outpatient (REF) | payer MEDICARE ==
[2022-04-24 08:25] LABS: HEMATOCRIT 37.4 % (36.0-47.0); MEAN CORPUSCULAR HEMOGLOBIN 28.7 pg (27.0-33.0); MEAN CORPUSCULAR HGB CONC 32.1 g/dl (32.0-36.5); MEAN CORPUSCULAR VOLUME 89.5 fl (80.0-96.0); PLATELET COUNT, AUTOMATED 199 10^3/uL (150-450); RED BLOOD COUNT 4.18 10^6/uL (4.00-5.40); WHITE BLOOD COUNT 8.4 10^3/uL (4.0-10.0)
[2022-04-24 09:58] LABS: HEMOGLOBIN A1c 10.3 % (4.0-6.0)
== END ==
LOC: SKLAB3 09:17
PROVIDERS: ATTEND Nurse Practitioner
DX: E11.9 Type 2 diabetes mellitus without complications (principal)

== ENCOUNTER → 2022-07-03 | Outpatient (REF) | payer MEDICARE ==
[2022-07-03 10:10] LABS: CALCIUM LEVEL 8.7 MG/DL (8.3-10.6); CREATININE FOR GFR 0.97 MG/DL (0.55-1.30); GLOMERULAR FILTRATION RATE 58.7 (>32); POTASSIUM SERUM 4.8 MMOL/L (3.5-5.1); THYROID STIMULATING HORMONE 2.994 uIU/ML (0.55-4.78)
== END ==
LOC: SKLAB3 09:17
PROVIDERS: ATTEND Internal Medicine
DX: E11.9 Type 2 diabetes mellitus without complications (principal); E03.9 Hypothyroidism, unspecified

== ENCOUNTER → 2022-08-21 | Outpatient (REF) | payer MEDICARE ==
[~2022-08-21] MED LIST changes: -COSO1SOL3 OU; +DORZ10DR10 OU; +TIMO0.5S20 OS; -TIMO0.5S29 OS
[2022-08-21 07:36] LABS: HEMATOCRIT 38.1 % (36.0-47.0); HEMOGLOBIN 11.9 g/dl (12.0-15.5); MEAN CORPUSCULAR HEMOGLOBIN 28.9 pg (27.0-33.0); MEAN CORPUSCULAR HGB CONC 31.2 g/dl (32.0-36.5); MEAN CORPUSCULAR VOLUME 92.5 fl (80.0-96.0); PLATELET COUNT, AUTOMATED 216 10^3/uL (150-450); RED BLOOD COUNT 4.12 10^6/uL (4.00-5.40); WHITE BLOOD COUNT 8.4 10^3/uL (4.0-10.0)
== END ==
LOC: SKLAB3 11:41
PROVIDERS: ATTEND Nurse Practitioner
DX: E11.9 Type 2 diabetes mellitus without complications (principal)

== ENCOUNTER → 2022-09-18 | Outpatient (REF) | payer MEDICARE ==
[~2022-09-18] MED LIST changes: -LOSA100T45 PO; +LOSA100T46 PO
[2022-09-18 08:23] LABS: ALBUMIN 3.3 G/DL (3.2-5.2); BILIRUBIN,TOTAL 0.4 MG/DL (0.3-1.2); CALCIUM LEVEL 8.9 MG/DL (8.3-10.6); CHOLESTEROL RISK RATIO 3.09 (<5); CREATININE FOR GFR 1.05 MG/DL (0.55-1.30); GLOMERULAR FILTRATION RATE 53.4 (>32); HDL CHOLESTEROL 55.6 MG/DL (>40); LDL CHOLESTEROL 63.8 MG/DL (<100); NON-HDL-C 116.4 MG/DL; POTASSIUM SERUM 4.5 MMOL/L (3.5-5.1); TOTAL PROTEIN 5.5 G/DL (5.7-8.2)
== END ==
LOC: SKLAB3 09:40
PROVIDERS: ATTEND Nurse Practitioner
DX: E11.9 Type 2 diabetes mellitus without complications (principal); E03.9 Hypothyroidism, unspecified

== ENCOUNTER → 2022-10-23 | Outpatient (REF) | payer MEDICARE ==
[~2022-10-23] MED LIST changes: +SENN-111 PO; -SENN18TA PO
== END ==
LOC: SKLAB3 07:19
PROVIDERS: ATTEND Nurse Practitioner
DX: E03.9 Hypothyroidism, unspecified (principal)

== ENCOUNTER → 2022-11-10 | Outpatient (REF) | payer MEDICARE, MEDICAID | LOC: M RAD 11:30 | PROVIDERS: ATTEND Internal Medicine | DX: M19.90 Unspecified osteoarthritis, unspecified site (principal) ==

== ENCOUNTER → 2022-11-12 | Outpatient (REF) | payer MEDICARE, MEDICAID | LOC: SKLAB3 21:20 | PROVIDERS: ATTEND Internal Medicine | DX: D72.829 Elevated white blood cell count, unspecified (principal) ==

== ENCOUNTER → 2022-11-12 | Outpatient (REF) | payer MEDICARE, MEDICAID ==
[2022-11-12 08:12] LABS: HEMATOCRIT 36.7 % (36.0-47.0); HEMOGLOBIN 11.6 g/dl (12.0-15.5); MEAN CORPUSCULAR HEMOGLOBIN 29.4 pg (27.0-33.0); MEAN CORPUSCULAR HGB CONC 31.6 g/dl (32.0-36.5); MEAN CORPUSCULAR VOLUME 92.9 fl (80.0-96.0); PLATELET COUNT, AUTOMATED 167 10^3/uL (150-450); RED BLOOD COUNT 3.95 10^6/uL (4.00-5.40)
[2022-11-12 08:43] LABS: BLOOD UREA NITROGEN 34 MG/DL (9-23); CALCIUM LEVEL 8.9 MG/DL (8.3-10.6); CARBON DIOXIDE LEVEL 30 MMOL/L (20-31); CHLORIDE LEVEL 104 MMOL/L (98-107); CREATININE FOR GFR 0.88 MG/DL (0.55-1.30); GLOMERULAR FILTRATION RATE > 60.0 (>32); GLUCOSE, FASTING 290 MG/DL (74-106); POTASSIUM SERUM 4.3 MMOL/L (3.5-5.1); SODIUM LEVEL 139 MMOL/L (136-145)
[2022-11-12 22:12] LABS: APPEARANCE, URINE HAZY (CLEAR); BACTERIA, URINE AUTO NEGATIVE (NEGATIVE); BILIRUBIN, URINE AUTO NEGATIVE (NEGATIVE); BLOOD, URINE BLOOD NEGATIVE (NEGATIVE); COLOR, URINE YELLOW (YELLOW); GLUCOSE, URINE (UA) AUTO 3+ mg/dL (NEGATIVE); KETONE, URINE AUTO NEGATIVE (NEGATIVE); LEUKOCYTE ESTERASE, URINE AUTO 2+ (NEGATIVE); MUCUS, URINE SMALL (NEGATIVE); NITRITE, URINE AUTO NEGATIVE (NEGATIVE); PROTEIN, URINE AUTO NEGATIVE (NEGATIVE); RBC, URINE AUTO 1 /HPF (0-3); SPECIFIC GRAVITY URINE AUTO 1.027 (1.002-1.035); SQUAMOUS EPITHELIAL CELL UR AU 3 /HPF (0-6); UROBILINOGEN, URINE AUTO 0.2 mg/dL (0.0-2.0); WBC, URINE AUTO 31 /HPF (0-3)
== END ==
LOC: SKLAB3 07:12
PROVIDERS: ATTEND Nurse Practitioner
DX: E11.9 Type 2 diabetes mellitus without complications (principal); D72.829 Elevated white blood cell count, unspecified; Z79.899 Other long term (current) drug therapy

== ENCOUNTER → 2022-11-13 | Outpatient (CLI) | payer MEDICARE, MEDICAID | LOC: M RAD 10:49 | PROVIDERS: ATTEND Nurse Practitioner | DX: R29.6 Repeated falls (principal); M25.512 Pain in left shoulder ==

== ENCOUNTER → 2022-11-27 | Outpatient (CLI) | payer MEDICARE, MEDICAID | LOC: M SOG 10:20 | PROVIDERS: ATTEND Orthopaedic Surgery Hand Surgery | DX: M25.512 Pain in left shoulder (principal) ==

== ENCOUNTER → 2022-12-18 | Outpatient (REF) | payer MEDICARE, MEDICAID ==
[2022-12-18 08:39] LABS: HEMATOCRIT 35.6 % (36.0-47.0); HEMOGLOBIN 10.9 g/dl (12.0-15.5); MEAN CORPUSCULAR HEMOGLOBIN 29.5 pg (27.0-33.0); MEAN CORPUSCULAR HGB CONC 30.6 g/dl (32.0-36.5); MEAN CORPUSCULAR VOLUME 96.2 fl (80.0-96.0); PLATELET COUNT, AUTOMATED 171 10^3/uL (150-450); WHITE BLOOD COUNT 6.8 10^3/uL (4.0-10.0)
[2022-12-18 08:59] LABS: HEMOGLOBIN A1c 9.5 % (4.0-6.0)
[2022-12-18 09:11] LABS: CALCIUM LEVEL 8.8 MG/DL (8.3-10.6); CREATININE FOR GFR 0.96 MG/DL (0.55-1.30); GLOMERULAR FILTRATION RATE 59.2 (>32); POTASSIUM SERUM 4.8 MMOL/L (3.5-5.1)
== END ==
LOC: SKLAB3 14:43
PROVIDERS: ATTEND Nurse Practitioner
DX: E11.9 Type 2 diabetes mellitus without complications (principal)

== ENCOUNTER → 2023-01-01 | Outpatient (CLI) | payer MEDICARE, MEDICAID | LOC: M SOG 08:23 | PROVIDERS: ATTEND Physician Assistant | DX: S42.032A Displaced fracture of lateral end of left clavicle, initial encounter for closed fracture (principal); S42.102A Fracture of unspecified part of scapula, left shoulder, initial encounter for closed fracture ==

== ENCOUNTER → 2023-03-26 | Outpatient (REF) | payer MEDICARE, MEDICAID ==
[2023-03-26 08:15] LABS: HEMOGLOBIN 11.2 g/dl (12.0-15.5); MEAN CORPUSCULAR HEMOGLOBIN 29.9 pg (27.0-33.0); MEAN CORPUSCULAR VOLUME 93.3 fl (80.0-96.0); PLATELET COUNT, AUTOMATED 250 10^3/uL (150-450); RED BLOOD COUNT 3.75 10^6/uL (4.00-5.40); WHITE BLOOD COUNT 13.2 10^3/uL (4.0-10.0)
== END ==
LOC: SKLAB3 07:00
PROVIDERS: ATTEND Internal Medicine
DX: E11.9 Type 2 diabetes mellitus without complications (principal)

== ENCOUNTER → 2023-03-29 | Outpatient (REF) | payer MEDICARE, MEDICAID | LOC: SKLAB3 14:59 → M LAB 14:59 | PROVIDERS: ATTEND Nurse Practitioner Adult Health | DX: D72.829 Elevated white blood cell count, unspecified (principal); Z53.8 Procedure and treatment not carried out for other reasons ==

== ENCOUNTER → 2023-04-01 | Outpatient (REF) | payer MEDICARE, MEDICAID ==
[2023-04-01 11:31] LABS: HEMATOCRIT 33.3 % (36.0-47.0); HEMOGLOBIN 10.6 g/dl (12.0-15.5); MEAN CORPUSCULAR HEMOGLOBIN 29.7 pg (27.0-33.0); MEAN CORPUSCULAR HGB CONC 31.8 g/dl (32.0-36.5); MEAN CORPUSCULAR VOLUME 93.3 fl (80.0-96.0); PLATELET COUNT, AUTOMATED 263 10^3/uL (150-450); RED BLOOD COUNT 3.57 10^6/uL (4.00-5.40); WHITE BLOOD COUNT 10.7 10^3/uL (4.0-10.0)
== END ==
LOC: SKLAB3 10:28
PROVIDERS: ATTEND Internal Medicine
DX: D72.829 Elevated white blood cell count, unspecified (principal)

== ENCOUNTER → 2023-04-03 | Outpatient (REF) | payer MEDICARE, MEDICAID ==
[2023-04-03 09:01] LABS: HEMATOCRIT 33.7 % (36.0-47.0); HEMOGLOBIN 10.8 g/dl (12.0-15.5); MEAN CORPUSCULAR HEMOGLOBIN 29.8 pg (27.0-33.0); MEAN CORPUSCULAR VOLUME 92.8 fl (80.0-96.0); PLATELET COUNT, AUTOMATED 295 10^3/uL (150-450); RED BLOOD COUNT 3.63 10^6/uL (4.00-5.40); WHITE BLOOD COUNT 9.8 10^3/uL (4.0-10.0)
== END ==
LOC: SKLAB3 08:24
PROVIDERS: ATTEND Nurse Practitioner Adult Health
DX: N39.0 Urinary tract infection, site not specified (principal)

== ENCOUNTER → 2023-04-23 | Outpatient (REF) | payer MEDICARE, MEDICAID ==
[2023-04-23 10:42] LABS: HEMOGLOBIN A1c 8.3 % (4.0-6.0)
== END ==
LOC: SKLAB3 08:29
PROVIDERS: ATTEND Internal Medicine
DX: E11.9 Type 2 diabetes mellitus without complications (principal)

== ENCOUNTER → 2023-05-05 | Outpatient (REF) | payer MEDICARE, MEDICAID | LOC: SKLAB3 20:30 | PROVIDERS: ATTEND Internal Medicine | DX: R73.9 Hyperglycemia, unspecified (principal) ==

== ENCOUNTER → 2023-05-21 | Outpatient (REF) | payer MEDICARE, MEDICAID ==
[2023-05-21 11:46] LABS: BLOOD UREA NITROGEN 38 MG/DL (9-23); CALCIUM LEVEL 8.9 MG/DL (8.3-10.6); CARBON DIOXIDE LEVEL 26 MMOL/L (20-31); CHLORIDE LEVEL 107 MMOL/L (98-107); CREATININE FOR GFR 0.87 MG/DL (0.55-1.30); GLOMERULAR FILTRATION RATE > 60.0 (>32); GLUCOSE, FASTING 255 MG/DL (74-106); POTASSIUM SERUM 4.5 MMOL/L (3.5-5.1); SODIUM LEVEL 140 MMOL/L (136-145)
== END ==
LOC: SKLAB3 10:13
PROVIDERS: ATTEND Internal Medicine
DX: E11.9 Type 2 diabetes mellitus without complications (principal)

== ENCOUNTER → 2023-08-15 | Outpatient (REF) | payer MEDICARE, MEDICAID ==
[~2023-08-15] MED LIST changes: -ASPI-161 PO; +ASPI-615 PO
== END ==
LOC: SKLAB3 02:48
PROVIDERS: ATTEND Internal Medicine
DX: E11.65 Type 2 diabetes mellitus with hyperglycemia (principal)

== ENCOUNTER → 2023-08-28 | Outpatient (REF) | payer MEDICARE, MEDICAID ==
[2023-08-28 09:27] LABS: HEMATOCRIT 34.9 % (36.0-47.0); HEMOGLOBIN 11.2 g/dl (12.0-15.5); MEAN CORPUSCULAR HEMOGLOBIN 29.2 pg (27.0-33.0); MEAN CORPUSCULAR HGB CONC 32.1 g/dl (32.0-36.5); MEAN CORPUSCULAR VOLUME 91.1 fl (80.0-96.0); PLATELET COUNT, AUTOMATED 176 10^3/uL (150-450); RED BLOOD COUNT 3.83 10^6/uL (4.00-5.40); WHITE BLOOD COUNT 9.6 10^3/uL (4.0-10.0)
[2023-08-28 10:53] LABS: HEMOGLOBIN A1c 8.6 % (4.0-6.0)
== END ==
LOC: SKLAB3 06-29 07:00
PROVIDERS: ATTEND Nurse Practitioner
DX: E11.9 Type 2 diabetes mellitus without complications (principal)

== ENCOUNTER → 2023-12-02 | Outpatient (REF) | payer MEDICARE, MEDICAID ==
[2023-12-02 12:31] LABS: HEMATOCRIT 31.6 % (36.0-47.0); HEMOGLOBIN 10.2 g/dl (12.0-15.5); MEAN CORPUSCULAR HEMOGLOBIN 30.2 pg (27.0-33.0); MEAN CORPUSCULAR HGB CONC 32.3 g/dl (32.0-36.5); MEAN CORPUSCULAR VOLUME 93.5 fl (80.0-96.0); PLATELET COUNT, AUTOMATED 171 10^3/uL (150-450); RED BLOOD COUNT 3.38 10^6/uL (4.00-5.40); WHITE BLOOD COUNT 8.4 10^3/uL (4.0-10.0)
[2023-12-02 13:03] LABS: ALBUMIN 3.1 G/DL (3.2-5.2); BILIRUBIN,TOTAL 0.5 MG/DL (0.3-1.2); CALCIUM LEVEL 8.9 MG/DL (8.3-10.6); CREATININE FOR GFR 1.02 MG/DL (0.55-1.30); GLOMERULAR FILTRATION RATE 55.1 (>32); POTASSIUM SERUM 4.6 MMOL/L (3.5-5.1); TOTAL PROTEIN 5.6 G/DL (5.7-8.2)
== END ==
LOC: SKLAB3 10:31
PROVIDERS: ATTEND Internal Medicine
DX: R41.82 Altered mental status, unspecified (principal)

== ENCOUNTER → 2024-02-02 | Outpatient (REF) | payer MEDICARE, MEDICAID ==
[~2024-02-02] MED LIST changes: -SENN-111 PO; +SENN-165 PO
[2024-02-02 16:14] LABS: ALBUMIN 2.9 G/DL (3.2-5.2); BILIRUBIN,TOTAL 0.4 MG/DL (0.3-1.2); CALCIUM LEVEL 9.1 MG/DL (8.3-10.6); CREATININE FOR GFR 0.98 MG/DL (0.55-1.30); GLOMERULAR FILTRATION RATE 57.7 (>32); POTASSIUM SERUM 4.1 MMOL/L (3.5-5.1); TOTAL PROTEIN 5.7 G/DL (5.7-8.2)
[2024-02-02 16:21] LABS: HEMATOCRIT 33.2 % (36.0-47.0); HEMOGLOBIN 10.6 g/dl (12.0-15.5); MEAN CORPUSCULAR HEMOGLOBIN 29.9 pg (27.0-33.0); MEAN CORPUSCULAR HGB CONC 31.9 g/dl (32.0-36.5); MEAN CORPUSCULAR VOLUME 93.5 fl (80.0-96.0); PLATELET COUNT, AUTOMATED 181 10^3/uL (150-450); RED BLOOD COUNT 3.55 10^6/uL (4.00-5.40); WHITE BLOOD COUNT 8.1 10^3/uL (4.0-10.0)
== END ==
LOC: SKLAB3 12:00
PROVIDERS: ATTEND Internal Medicine
DX: E10.9 Type 1 diabetes mellitus without complications (principal)

== ENCOUNTER → 2024-02-27 | Outpatient (REF) | payer MEDICARE, MEDICAID ==
[2024-02-27 08:51] LABS: HEMATOCRIT 32.2 % (36.0-47.0); HEMOGLOBIN 10.3 g/dl (12.0-15.5); MEAN CORPUSCULAR HEMOGLOBIN 30.2 pg (27.0-33.0); MEAN CORPUSCULAR VOLUME 94.4 fl (80.0-96.0); PLATELET COUNT, AUTOMATED 151 10^3/uL (150-450); RED BLOOD COUNT 3.41 10^6/uL (4.00-5.40); WHITE BLOOD COUNT 8.2 10^3/uL (4.0-10.0)
== END ==
LOC: SKLAB3 07:00
PROVIDERS: ATTEND Internal Medicine
DX: F03.90 Unspecified dementia, unspecified severity, without behavioral disturbance, psychotic disturbance, mood disturbance, and anxiety (principal)

== ENCOUNTER → 2024-04-21 | Outpatient (REF) | payer MEDICARE, MEDICAID ==
[~2024-04-21] MED LIST changes: +CARB15DR64 OP; -LUBR0.5D OP
[2024-04-21 11:15] LABS: HEMOGLOBIN A1c 9.2 % (4.0-6.0)
== END ==
LOC: SKLAB3 07:00
PROVIDERS: ATTEND Internal Medicine
DX: E11.9 Type 2 diabetes mellitus without complications (principal)

== ENCOUNTER 2024-05-19 17:39 | Inpatient (IN) | payer MEDICARE, MEDICAID ==
[~2024-05-19 17:39] MED LIST changes: -ACET650T15 PO; -BISA10SU27 PR; -CHOL1250 PO; -DEXT2TAB3 PO; -GLUCLIQ37 PO; -HUMA100I5 SC; -INSULANT SC; -LEVO88TA3 PO; -METH50TA10 PO; -MILKSUS3 PO; -NYST-38 PO; -QUET1TAB17 PO; -SENN-23 PO; -SERT50TA29 PO
[2024-05-19] MEDS: NS (Normal Saline) 0.9% 1,000 ML IV SCH (20:12)
[2024-05-19 20:23] LABS: HEMATOCRIT 33.9 % (36.0-47.0); MEAN CORPUSCULAR HEMOGLOBIN 29.4 pg (27.0-33.0); MEAN CORPUSCULAR HGB CONC 32.4 g/dl (32.0-36.5); MEAN CORPUSCULAR VOLUME 90.6 fl (80.0-96.0); RED BLOOD COUNT 3.74 10^6/uL (4.00-5.40); WHITE BLOOD COUNT 16.5 10^3/uL (4.0-10.0)
[2024-05-19 20:47] LABS: ATYPICAL LYMPH 2 % (0-5); LYMPHOCYTES 14 % (16-44); MONOCYTES 4 % (0-5); NEUTROPHILS 78 % (28-66)
[2024-05-19 20:48] LABS: PLATELET CLUMPS SMALL AMT; PLATELET ESTIMATE NORMAL (NORMAL)
[2024-05-19 20:51] LABS: CALCIUM LEVEL 8.1 MG/DL (8.3-10.6); CREATININE FOR GFR 2.71 MG/DL (0.55-1.30); GLOMERULAR FILTRATION RATE 17.8 (>32); POTASSIUM SERUM 4.6 MMOL/L (3.5-5.1)
[2024-05-19] MEDS: cefTRIAXone SOD 1 GM in DEXTROSE 5% (D5W) ADV/MINI-BAG 50 ML IV ONE (21:57)
[2024-05-19] MEDS: HumuLIN R (REGULAR) INSULIN (NovoLIN R) **100U/ML** PER UNIT IV ONE (21:58)
[2024-05-19] MEDS ORDERED: ACETAMINOPHEN 325 MG TAB PO PRN (23:10)
[2024-05-19] MEDS ORDERED: MOM 30ML SUSPENSION UDC PO PRN (23:10)
[2024-05-19] MEDS ORDERED: MAALOX 30 ML SUSP *UDC PO PRN (23:10)
[2024-05-19] MEDS ORDERED: HUMA100I5 SC (23:12)
[2024-05-19] MEDS ORDERED: SERT50TA29 PO (23:12)
[2024-05-19] MEDS ORDERED: CHOL1250 PO (23:12)
[2024-05-19] MEDS ORDERED: ACET650T15 PO (23:12)
[2024-05-19] MEDS ORDERED: QUET1TAB17 PO (23:12)
[2024-05-19] MEDS ORDERED: INSULANT SC (23:12)
[2024-05-19] MEDS ORDERED: BISA10SU27 PR (23:12)
[2024-05-19] MEDS ORDERED: ATOR1TAB21 PO (23:12)
[2024-05-19] MEDS ORDERED: METH50TA10 PO (23:12)
[2024-05-19] MEDS ORDERED: DEXT2TAB3 PO (23:12)
[2024-05-19] MEDS ORDERED: GLUCLIQ37 PO (23:12)
[2024-05-19] MEDS ORDERED: NYST-38 PO (23:12)
[2024-05-19] MEDS ORDERED: ACET1TAB55 PO (23:12)
[2024-05-19] MEDS ORDERED: MILKSUS3 PO (23:12)
[2024-05-19] MEDS ORDERED: SENN-23 PO (23:12)
[2024-05-19] MEDS ORDERED: LEVO88TA3 PO (23:12)
[2024-05-19] MEDS ORDERED: HOME MED LIST COMPLETE! XX SCH (23:15)
[2024-05-19] MEDS ORDERED: GLUCOSE 4 GM CHEW PO PRN (23:45)
[2024-05-19] MEDS ORDERED: GLUCAGON INJ 1MG VIAL SC PRN (23:45)
[2024-05-19] MEDS ORDERED: DEXTROSE 50% 50ML SYRINGE IV PRN (23:45)
[2024-05-19] MEDS ORDERED: NITROGLYCERIN 0.4MG SUBL TABLET SL PRN (23:50)
[2024-05-19] MEDS ORDERED: BISACODYL 10MG SUPP PR PRN (23:50)
[2024-05-20] MEDS: DOXYCYCLINE HYCLATE 100MG TABLET PO SCH (00:12)
[2024-05-20] MEDS: NS (Normal Saline) 0.9% 1,000 ML IV SCH (00:12)
[2024-05-20] MEDS: DOCUSATE SODIUM 100MG CAPSULE PO SCH (00:12)
[2024-05-20] MEDS: INSULIN LISPRO (NovoLOG) PER UNIT SC SCH ×3 (00:13→12:25)
[2024-05-20 01:23] LABS: VENOUS HCO3 22.2 MMOL/L (23.0-27.0); VENOUS O2 SATURATION 63.1 % (60.0-80.0); VENOUS PARTIAL PRESSURE CO2 44.4 mmHg (38.0-50.0); VENOUS PARTIAL PRESSURE O2 31.7 mmHg (30.0-50.0); VENOUS PH 7.316 UNITS (7.330-7.430); VENOUS STANDARD HCO3 20.5 MMOL/L; VENOUS TOTAL CO2 23.5 MMOL/L (24.0-28.0)
[2024-05-20 01:35] LABS: INR 1.03; PROTHROMBIN TIME 13.8 SECONDS (12.5-14.5)
[2024-05-20 01:52] LABS: BILIRUBIN,DIRECT 0.2 MG/DL (<0.4); BILIRUBIN,TOTAL 0.6 MG/DL (0.3-1.2); TOTAL PROTEIN 5.5 G/DL (5.7-8.2)
[2024-05-20 03:27] LABS: PROCALCITONIN 34.71 ng/ml
[2024-05-20 06:27] LABS: HEMATOCRIT 35.1 % (36.0-47.0); MEAN CORPUSCULAR HEMOGLOBIN 29.4 pg (27.0-33.0); MEAN CORPUSCULAR HGB CONC 31.3 g/dl (32.0-36.5); MEAN CORPUSCULAR VOLUME 93.9 fl (80.0-96.0); RED BLOOD COUNT 3.74 10^6/uL (4.00-5.40); WHITE BLOOD COUNT 14.8 10^3/uL (4.0-10.0)
[2024-05-20] MEDS: LEVOTHYROXINE 88MCG TABLET (0.088 MG) PO SCH (06:34)
[2024-05-20 06:49] LABS: BILIRUBIN,TOTAL 0.6 MG/DL (0.3-1.2); CALCIUM LEVEL 8.6 MG/DL (8.3-10.6); CREATININE FOR GFR 2.37 MG/DL (0.55-1.30); GLOMERULAR FILTRATION RATE 20.8 (>32); MAGNESIUM LEVEL 2.1 MG/DL (1.8-2.4); POTASSIUM SERUM 4.3 MMOL/L (3.5-5.1); TOTAL PROTEIN 5.3 G/DL (5.7-8.2)
[2024-05-20 07:02] LABS: PLATELET COUNT, AUTOMATED 85 10^3/uL (150-450)
[2024-05-20] MEDS: HEPARIN SOD (PORCINE) 5000UNITS/ML 1ML VIAL/SYRINGE SC SCH (09:00)
[2024-05-20] MEDS ORDERED: METHAZOLAMIDE 50 MG PO SCH (09:00)
[2024-05-20] MEDS: SERTRALINE HCL 25 MG TABLET PO SCH (09:50)
[2024-05-20] MEDS: SERTRALINE HCL 50 MG TAB PO SCH (09:50)
[2024-05-20] MEDS: NYSTATIN 500,000U/5ML SUSP UDC SS SCH (09:50)
[2024-05-20] MEDS: LEVEMIR (INSULIN DETEMIR) 1 UNITS/0.01ML SC SCH (09:50)
[2024-05-20] MEDS: ACETAMINOPHEN 650MG ER TAB (TYLENOL ARTHRITIS) PO SCH (09:51)
[2024-05-20] MEDS: QUEtiapine FUMARATE 12.5 MG HALF-TAB PO SCH (09:51)
[2024-05-20] MEDS: SENOKOT S TAB PO SCH (09:51)
[2024-05-20] MEDS ORDERED: GLUCAGON INJ 1MG VIAL SC PRN (11:05)
[2024-05-20] MEDS ORDERED: D5W/0.45% SODIUM CHLORIDE 1,000 ML IV SCH (11:05)
[2024-05-20] MEDS ORDERED: GLUCOSE 4 GM CHEW PO PRN (11:05)
[2024-05-20] MEDS: NS 0.45% 1,000 ML IV SCH (12:24)
[2024-05-20 17:42] LABS: CREATININE FOR GFR 2.23 MG/DL (0.55-1.30); GLOMERULAR FILTRATION RATE 22.3 (>32); POTASSIUM SERUM 3.8 MMOL/L (3.5-5.1)
[2024-05-20 21:30] VITALS: BP 128/46; TEMP 97.3; O2SAT 96
[2024-05-20] MEDS: ATORVASTATIN 20 MG TAB PO SCH (21:56)
[2024-05-20] MEDS: cefTRIAXone SOD 1 GM in DEXTROSE 5% (D5W) ADV/MINI-BAG 50 ML IV SCH (22:00)
[2024-05-21] VITALS: O2SAT 95
[2024-05-21 05:14] LABS: BASO % 0.3 % (0.0-1.0); EOS # 0.1 10^3/uL (0.0-0.5); EOS % 0.8 % (0.0-3.0); HEMATOCRIT 33.2 % (36.0-47.0); HEMOGLOBIN 10.2 g/dl (12.0-15.5); LYMPH # 2.6 10^3/uL (1.5-5.0); LYMPH % 18.8 % (24.0-44.0); MEAN CORPUSCULAR HEMOGLOBIN 29.1 pg (27.0-33.0); MEAN CORPUSCULAR HGB CONC 30.7 g/dl (32.0-36.5); MEAN CORPUSCULAR VOLUME 94.9 fl (80.0-96.0); MONO # 1.1 10^3/uL (0.0-0.8); MONO % 7.8 % (2.0-8.0); NEUTROPHILS # 9.7 10^3/uL (1.5-8.5); NEUTROPHILS % 71.3 % (36.0-66.0); WHITE BLOOD COUNT 13.7 10^3/uL (4.0-10.0)
[2024-05-21] MEDS: DEXTROSE 50% 50ML SYRINGE IV PRN (05:19)
[2024-05-21 05:20] VITALS: BP 121/50; TEMP 97.9; O2SAT 95
[2024-05-21 05:37] LABS: CALCIUM LEVEL 7.9 MG/DL (8.3-10.6); GLOMERULAR FILTRATION RATE 25.3 (>32); POTASSIUM SERUM 3.7 MMOL/L (3.5-5.1)
[2024-05-21 05:43] LABS: PLATELET COUNT, AUTOMATED 73 10^3/uL (150-450)
[2024-05-21] MEDS: D5W 1,000 ML IV SCH (07:53)
[2024-05-21] MEDS ORDERED: SCOPOLAMINE 1MG TRANSDERMAL PATCH TOP PRN (09:00)
[2024-05-21 10:14] LABS: CALCIUM LEVEL 7.6 MG/DL (8.3-10.6); CREATININE FOR GFR 1.96 MG/DL (0.55-1.30); GLOMERULAR FILTRATION RATE 25.9 (>32); POTASSIUM SERUM 3.8 MMOL/L (3.5-5.1)
[2024-05-21] MEDS ORDERED: BISACODYL 10MG SUPP PR PRN (10:40)
[2024-05-21] MEDS ORDERED: ATROPINE SULFATE 1% OPHTH SOLN 2ML BTL SL PRN (10:40)
[2024-05-21] MEDS ORDERED: MORPHINE 10MG/0.5ML ORAL CONCENTRATE SOLUTION U/D SL PRN (10:40)
[2024-05-21] MEDS ORDERED: ONDANSETRON 4MG ORAL DISINTEGRATING TAB PO PRN (10:40)
[2024-05-21] MEDS ORDERED: MORP1SOL SL (10:43)
[2024-05-21] MEDS ORDERED: ATRO2DRO4 SL (10:43)
[2024-05-21] MEDS ORDERED: ONDA-282 PO (10:43)
[2024-05-21] MEDS ORDERED: TRAN1DIS4 TOP (10:43)
[2024-05-21] MEDS ORDERED: ACETAMINOPHEN 650MG SUPP PR PRN (13:00)
[2024-05-25 19:37] LABS: URINE STREP PNEUMONIAE ANTIGEN NOT DETECTED (NOT DETECT)
== END 2024-05-21 13:26 | DRG 682 ==
LOC: EDBD 17:39 → M ED 17:39 → M ED INP 23:07 → M MSPAV 05-20 20:44 → M ED INP 05-20 20:56 → M MSPAV 05-20 21:00
PROVIDERS: ADMIT Family Medicine; ATTEND Student in an Organized Health Care Education/Training Program
DX: N17.9 Acute kidney failure, unspecified (principal); J18.9 Pneumonia, unspecified organism; J98.11 Atelectasis; F03.C18 Unspecified dementia, severe, with other behavioral disturbance; N39.0 Urinary tract infection, site not specified; E87.0 Hyperosmolality and hypernatremia; E86.0 Dehydration; I25.10 Atherosclerotic heart disease of native coronary artery without angina pectoris; E78.5 Hyperlipidemia, unspecified; I12.9 Hypertensive chronic kidney disease with stage 1 through stage 4 chronic kidney disease, or unspecified chronic kidney disease; E10.40 Type 1 diabetes mellitus with diabetic neuropathy, unspecified; E10.22 Type 1 diabetes mellitus with diabetic chronic kidney disease; N18.30 Chronic kidney disease, stage 3 unspecified; Z51.5 Encounter for palliative care; Z66 Do not resuscitate; H40.9 Unspecified glaucoma; K21.9 Gastro-esophageal reflux disease without esophagitis; E03.9 Hypothyroidism, unspecified; R41.0 Disorientation, unspecified; E55.9 Vitamin D deficiency, unspecified; M54.9 Dorsalgia, unspecified; F41.9 Anxiety disorder, unspecified; F32.A Depression, unspecified; Z90.49 Acquired absence of other specified parts of digestive tract; Z87.891 Personal history of nicotine dependence; Z79.4 Long term (current) use of insulin; Z79.899 Other long term (current) drug therapy; Z79.890 Hormone replacement therapy; Z88.0 Allergy status to penicillin

== ENCOUNTER → 2024-05-19 | Outpatient (REF) | payer MEDICARE, MEDICAID ==
[~2024-05-19] MED LIST changes: +ACET650T15 PO; +ATRO2DRO4 SL; +BISA10SU27 PR; +CHOL1250 PO; +DEXT2TAB3 PO; +GLUCLIQ37 PO; +HUMA100I5 SC; +INSULANT SC; +LEVO88TA3 PO; +METH50TA10 PO; +MILKSUS3 PO; +MORP1SOL SL; +NYST-38 PO; +ONDA-282 PO; +QUET1TAB17 PO; +SENN-23 PO; +SERT50TA29 PO; +TRAN1DIS4 TOP
[2024-05-19 12:05] LABS: HEMATOCRIT 33.7 % (36.0-47.0); MEAN CORPUSCULAR HEMOGLOBIN 29.7 pg (27.0-33.0); MEAN CORPUSCULAR HGB CONC 32.6 g/dl (32.0-36.5); MEAN CORPUSCULAR VOLUME 91.1 fl (80.0-96.0); PLATELET COUNT, AUTOMATED 113 10^3/uL (150-450); WHITE BLOOD COUNT 19.9 10^3/uL (4.0-10.0)
[2024-05-19 12:27] LABS: CALCIUM LEVEL 9.4 MG/DL (8.3-10.6); CREATININE FOR GFR 3.08 MG/DL (0.55-1.30); GLOMERULAR FILTRATION RATE 15.4 (>32); POTASSIUM SERUM 4.9 MMOL/L (3.5-5.1)
[2024-05-19 14:55] LABS: APPEARANCE, URINE CLOUDY (CLEAR); BACTERIA, URINE AUTO 3+ (NEGATIVE); BILIRUBIN, URINE AUTO NEGATIVE (NEGATIVE); BLOOD, URINE BLOOD NEGATIVE (NEGATIVE); COLOR, URINE YELLOW (YELLOW); GLUCOSE, URINE (UA) AUTO 2+ mg/dL (NEGATIVE); KETONE, URINE AUTO NEGATIVE (NEGATIVE); LEUKOCYTE ESTERASE, URINE AUTO NEGATIVE (NEGATIVE); NITRITE, URINE AUTO NEGATIVE (NEGATIVE); PROTEIN, URINE AUTO 1+ mg/dL (NEGATIVE); RBC, URINE AUTO 0 /HPF (0-3); SPECIFIC GRAVITY URINE AUTO 1.017 (1.002-1.035); SQUAMOUS EPITHELIAL CELL UR AU 1 /HPF (0-6); UROBILINOGEN, URINE AUTO 0.2 mg/dL (0.0-2.0); WBC, URINE AUTO 0 /HPF (0-3)
== END ==
LOC: SKLAB3 11:19
PROVIDERS: ATTEND Internal Medicine
DX: R41.82 Altered mental status, unspecified (principal)

== ENCOUNTER → 2024-05-19 | Outpatient (CLI) | payer MEDICARE, MEDICAID ==
[~2024-05-19] MED LIST changes: -ATRO2DRO4 SL; -MORP1SOL SL; -ONDA-282 PO; -TRAN1DIS4 TOP
== END ==
LOC: M RAD 13:07
PROVIDERS: ATTEND Nurse Practitioner Adult Health
DX: I63.9 Cerebral infarction, unspecified (principal)